=== PATIENT | female | born 1990 | race Caucasian/White ===

== ENCOUNTER 2023-07-20 08:13 | Outpatient (OUT) | payer OTHER, SELFPAY ==
[2023-07-20 09:53] LABS: Free T3 3.13 pg/mL (2.18-3.98); Thyroid Stimulating Hormone 1.669 uIU/mL (0.358-3.740)
== END 2023-07-20 08:14 | disposition home or self-care (01) ==
PROVIDERS: PCP Nurse Practitioner Family; Visit Provider Nurse Practitioner Family
DX: Z00.00 Encounter for general adult medical examination without abnormal findings (principal)
CPT/HCPCS: 36415; 84436; 84443; 84481

== ENCOUNTER 2024-05-16 09:56 | Outpatient (OUT) | payer OTHER, SELFPAY ==
--- OUTSIDE RECORDS SUMMARY | 2024-05-16 09:59 | XMS_ITS | CCD ---
Author Organization [facility] Care Team Providers Care Casting Repairer Name Role Phone No Family, Physician Unavailable Unavailable DECKER, NEELIMA T Unavailable Unavailable DECKER, NEELIMA T Unavailable Unavailable No Family, Physician Unavailable Unavailable EMI, DAYANA E Unavailable Unavailable No Family, Physician Unavailable Unavailable WINTER MARINA Admitting Unavailable WINTER MARINA Attending Unavailable WINTER MARINA Primary Care Unavailable WINTER MARINA Consulting Unavailable WINTER MARINA Admitting Unavailable WINTER MARINA Attending Unavailable WINTER MARINA Primary Care Unavailable WINTER MARINA Consulting Unavailable KORY Marina-Yumi [place] Primary [facility] Provider DO Shirlene Samayoa Attending Provider LILA Marina [place] Primary [facility] Provider [phone] DO Shirlene Samayoa Attending Provider [phone] AYLEEN Hickman Emergency Provider LILA Marina [place] Primary Care Provider DO Shirlene Samayoa Attending Provider NO FAMILY, PHYSICIAN Primary Care Provider Unava ilable MD Rodger Jacobsen Admit Provider MD Rodger Jacobsen Attending Provider MD Asha Bowman Attending Provider [phone] Winter [place] Primary Care Unavailable Francis Hickman Admitting Unavailable Francis Hickman Attending Unavailable Rodger Jacobsen Admitting Unavailable Rodger Jacobsen Attending Unavailable Winter Marina Primary Care Unavailable Asha Bowman Attending Unavailable Winter Marina [place] Primary Care Unavailable Asha Bowman Admitting Unavailable Asha Bowman Admitting Unavailable Asha Bowman Attending Unavailable Winter Marina Primary Care Unavailable Asha Bowman Admitting Unavailable Asha Bowman Attending Unavailable Winter Marina Primary Care Unavailable Shirlene Samayoa Admitting Unavailable Shirlene Samayoa Attending Unavailable Winter Marina Primary Care Unavailable NO FAMILY, PHYSICIAN Primary Care Unavailable Shirlene Samayoa Admitting Unavailable Shirlene Samayoa Attending Unavailable Medications Current Medications Medication Drug Class(es) Dates Sig (Normalized) Sig (Original) cephalexin 500 mg oral capsule (4 sources) Cephalosporin Antibacterial Start: 04-30-2023 take 500 mg by mouth twice daily Cephalexin Active 500 MG PO Twice daily 10 April 30, 2023 12:00am docusate sodium 100 mg oral capsule (4 sources) Start: 04-30-2023 take 1 capsule by mouth once daily Docusate Sodium (Colace) 100 mg capsule Active 100 MG PO Daily April 30, 2023 12:00am ferrous sulfate 325 mg oral tablet (4 sources) Start: 04-30-2023 take 325 mg by mouth twice daily Ferrous Sulfate Active 325 MG PO Twice daily 60 April 30, 2023 12:00am ibuprofen 600 mg oral tablet (4 sources) Nonsteroidal Anti-inflammatory Drug Start: 04-30-2023 Ibuprofen Active 600 MG PO Every 6 hours April 30, 2023 12:00am do not exceed 4 doses in a 24 hour period levothyroxine sodium 0.075 mg oral tablet (6 sources) l-Thyroxine Start: 02-15-2023 take 1 tablet by mouth once daily Levothyroxine (Synthroid) 75 mcg tablet Active 75 MCG PO Daily February 15, 2023 12:00am Problems Active Problems Problem Classification Problem Date Documented Da te Episodic/Chronic Hemorrhage during ; abruptio placenta; placenta previa (1 source) Threatened miscarriage; Translations: [Threatened ] Onset: 8 Episodic Other complications of ; puerperium affecting management of mother (4 sources) Anemia during the puerperium; Translations: [Anemia of the puerperium] 04-30-2023 Chronic Other complications of ; puerperium affecting management of mother (5 sources) Anemia of the puerperium; Translations: [Anemia of mother, condition or complication] Onset: 3 04-30-2023 Chronic Other complications of ; puerperium affecting management of mother (4 sources) Urinary tract infection in ; Translations: [Urinary tract infection following delivery, unspecified] 04-30-2023 Episodic Other complications of ; puerperium affecting management of mother (5 sources) Urinary tract infection following delivery, unspecified; Translations: [Infections of genitourinary tract in , condition or complication] Onset: 3 04-30-2023 Episodic Other complications of (4 sources) Anemia of ; Translations: [Anemia complicating , unspecified trimester] 04-29-2023 Chronic Other complications of (4 sources) Anemia complicating , unspecified trimester; Translations: [Anemia of mother, unspecified as to episode of care or not applicable] 04-30-2023 Chronic Other female genital disorders (8 sources) History of past delivery; Translations: [Status post vaginal delivery] 04-29-2023 Episodic Other and delivery including normal (2 sources) Encounter for supervision of normal , unspecified, third trimester; Translations: [Encounter for supervision of normal first , second trimester] Onset: 3 Episodic Phlebitis; thrombophlebitis and thromboembolism (6 sources) Superficial thrombophlebitis; Translations: [Phlebitis and thrombophlebitis of unspecified site] 02-15-2023 Episodic Thyroid disorders (4 sources) Hypothyroidism, unspecified; Translations: [HYPOTHYROIDISM UNSPECIFIED] Onset: 2 Chronic Unclassified (1 source) Failed attempted termination of without complication / O07.4(ICD-10) Onset: 8 Unclassified (2 sources) Threatened / O20.0(ICD-10) Onset: 8 Unclassified (1 source) Encounter for care and examination of lactating mother; Translations: [Encounter for care and examination of lactating mother] Onset: 3 Unclassified (1 source) Hypogalactia; Translations: [Hypogalactia] Onset: 3 Unclassified (1 source) Encounter for screening for Streptococcus B; Translations: [Encounter for screening for Streptococcus B] Onset: 3 Unclassified (1 source) Erythematous condition, unspecified; Translations: [Erythematous condition, unspecified] Onset: 3 Unclassified (1 source) Encounter for screening for diabetes mellitus; Translations: [Encounter for screening for diabetes mellitus] Onset: 3 Past or Other Problems Problem Classification Problem Date Documented Da te Episodic/Chronic Residual codes; unclassified (1 source) 25 weeks gestation of ; Translations: [25 weeks gestation of ] Onset: 02-01-2023 Episodic Unclassified (1 source) Failed attempted termination of without complication; Translations: [Failed attempted termination of without complication] Onset: 07-24-2018 Results Test Name Value Interpretation Reference Range Facility Basophils Auto (Bld) [#/Vol] Ordered By: RODGER JACOBSEN on 04-29-2023 Basophils (Bld) [#/Vol] 0.1 10*3/uL 0.0-0.2 [facility] Basophils/100 WBC Auto (Bld) Ordered By: RODGER JACOBSEN on 04-29-2023 Basophils/100 WBC (Bld) 0.7 % . [facility] Complete Blood Count Auto Di ffon 04-29-2023 Basophils (Bld) [#/Vol] 0.1 10*3/uL Normal 0.0-0.2 [facility] Comment on above: Order Comment: Pleas e draw per Lori in BB. MLG Result Comment: PERF ORMED BY: [facility] [address] [place] [address] PATHOLOGIST DRILL PRESSER LIZBET العلي M.D. Performed By: #### C BC ####[id number] [facility] [place] Basophils/100 WBC (Bld) 0.7 % Normal . [facility] Comment on above: Order Comment: Pleas e draw per Lori in BB. MLG Performed By: #### C BC ####[facility] [id number] [facility] [place] Eosinophils (Bld) [#/Vol] 0.2 10*3/uL Normal 0.0-0.45 [facility] Comment on above: Order Comment: Pleas e draw per Lori in BB. MLG Performed By: #### C BC ####[place] [id number] [facility] [place] Eosinophils/100 WBC (Bld) 1.8 % Normal . [facility] Comment on above: Order Comment: Pleas e draw per Lori in BB. MLG Performed By: #### C BC ####[place] [id number] [facility] [place] Erythrocyte distribution width (RBC) [Ratio] 12.9 % Normal 11.9-15.3 [facility] Comment on above: Order Comment: Pleas e draw per Lori in BB. MLG Performed By: #### C BC ####[address] [id number] [facility] [place] Hematocrit (Bld) [Volume fraction] 21.4 % Significant change down 34.0-46.4 [facility] Comment on above: Order Comment: Pleas e draw per Lori in BB. MLG Performed By: #### C BC ####[address] [id number] [facility] [place] Hemoglobin (Bld) [Mass/Vol] 7.3 g/dL Low 11.8-15.4 [facility] Comment on above: Order Comment: Pleas e draw per Lori in BB. MLG Performed By: #### C BC ####[place] [id number] [facility] [place] Lymphocytes (Bld) [#/Vol] 2.2 10*3/uL Normal 1.00-4.8 [facility] Comment on above: Order Comment: Pleas e draw per Lori in BB. MLG Performed By: #### C BC ####[place] [id number] [facility] [place] Lymphocytes/100 WBC (Bld) 24.0 % Normal . [facility] Comment on above: Order Comment: Pleas e draw per Lori in BB. MLG Performed By: #### C BC ####[place] [id number] [facility] [place] MCH (RBC) [Entitic mass] 29.5 pg Normal 24.7-34.3 [facility] Comment on above: Order Comment: Pleas e draw per Lori in BB. MLG Performed By: #### C BC ####[address] MCV (RBC) [Entitic vol] 86.8 fL Normal 80-100 [facility] Comment on above: Order Comment: Pleas e draw per Lori in BB. MLG Performed By: #### C BC ####[address] Mean Corpuscular HGB Conc 34.0 g/dL Normal 32.0-35.0 [facility] Comment on above: Order Comment: Pleas e draw per Lori in BB. MLG Performed By: #### C BC ####[address] Monocytes (Bld) [#/Vol] 0.7 10*3/uL Normal 0.0-0.8 [facility] Comment on above: Order Comment: Pleas e draw per Lori in BB. MLG Performed By: #### C BC ####[address] Monocytes/100 WBC (Bld) 7.2 % Normal . [facility] Comment on above: Order Comment: Pleas e draw per Lori in BB. MLG Performed By: #### C BC ####[address] Neutrophils (Bld) [#/Vol] 6.0 10*3/uL Normal 1.8-7.7 [facility] Comment on above: Order Comment: Pleas e draw per Lori in BB. MLG Performed By: #### C BC ####[address] Neutrophils/100 WBC (Bld) 66.3 % Normal . [facility] Comment on above: Order Comment: Pleas e draw per Lori in BB. MLG Performed By: #### C BC ####[place] [id number] [facility] [place] NRBC% 0.2 /100{WBC} Normal 0-0.5 [facility] Comment on above: Order Comment: Pleas e draw per Lori in BB. MLG Performed By: #### C BC ####[address] Platelet mean volume (Bld) [Entitic vol] 9.6 fL Normal 6.3-10.7 [facility] Comment on above: Order Comment: Pleas e draw per Lori in BB. MLG Performed By: #### C BC ####[address] Platelets (Bld) [#/Vol] 145 10*3/uL Significant change down 150-450 [facility] Comment on above: Order Comment: Pleas e draw per Lori in BB. MLG Performed By: #### C BC ####[address] RBC (Bld) [#/Vol] 2.47 10*6/uL Low 3.60-5.00 [facility] Comment on above: Order Comment: Pleas e draw per Lori in BB. MLG Performed By: #### C BC ####[address] WBC (Bld) [#/Vol] 9.1 10*3/uL Normal 3.8-11.6 [facility] Comment on above: Order Comment: Pleas e draw per Lori in BB. MLG Performed By: #### C BC ####[address] Eosinophils Auto (Bld) [#/Vo l]Ordered By: RODGER JACOBSEN on 04-29-2023 Eosinophils (Bld) [#/Vol] 0.2 10*3/uL 0.0-0.45 [facility] Eosinophils/100 WBC Auto (Bl d)Ordered By: RODGER JACOBSEN on 04-29-2023 Eosinophils/100 WBC (Bld) 1.8 % . [facility] Erythrocyte distribution wid th Auto (RBC) [Ratio]Ordered By: RODGER JACOBSEN on 04-29-2023 Erythrocyte distribution width (RBC) [Ratio] 12.9 % 11.9-15.3 [facility] Hematocrit Auto (Bld) [Volum e fraction]Ordered By: RODGER JACOBSEN on 04-29-2023 Hematocrit (Bld) [Volume fraction] 21.4 % 34.0-46.4 [facility] Comment on above: Delta: 30.9 on 04/27-2099 Hemoglobin [Mass/volume] in BloodOrdered By: RODGER JACOBSEN on 04-29-2023 Hemoglobin (Bld) [Mass/Vol] 7.3 g/dL 11.8-15.4 [facility] Leukocytes [#/volume] correc arie for nucleated erythrocytes in Blood by Automated counOrdered By: RODGER JACOBSEN on 04-29-2023 WBC corrected for nucl RBC Auto (Bld) [#/Vol] 9.1 10*3/uL 3.8-11.6 [facility] Lymphocytes Auto (Bld) [#/Vo l]Ordered By: RODGER JACOBSEN on 04-29-2023 Lymphocytes (Bld) [#/Vol] 2.2 10*3/uL 1.00-4.8 [facility] Lymphocytes/100 WBC Auto (Bl d)Ordered By: RODGER JACOBSEN on 04-29-2023 Lymphocytes/100 WBC (Bld) 24.0 % . [facility] MCH Auto (RBC) [Entitic mass ]Ordered By: RODGER JACOBSEN on 04-29-2023 MCH (RBC) [Entitic mass] 29.5 pg 24.7-34.3 [facility] MCHC Auto (RBC) [Mass/Vol]Or dered By: RODGER JACOBSEN on 04-29-2023 MCHC (RBC) [Mass/Vol] 34.0 g/dL 32.0-35.0 [facility] MCV Auto (RBC) [Entitic vol] Ordered By: RODGER JACOBSEN on 04-29-2023 MCV (RBC) [Entitic vol] 86.8 fL 80-100 [facility] Monocytes Auto (Bld) [#/Vol] Ordered By: RODGER JACOBSEN on 04-29-2023 Monocytes (Bld) [#/Vol] 0.7 10*3/uL 0.0-0.8 [facility] Monocytes/100 WBC Auto (Bld) Ordered By: RODGER JACOBSEN on 04-29-2023 Monocytes/100 WBC (Bld) 7.2 % . [facility] Neutrophils Auto (Bld) [#/Vo l]Ordered By: RODGER JACOBSEN on 04-29-2023 Neutrophils (Bld) [#/Vol] 6.0 10*3/uL 1.8-7.7 [facility] Neutrophils/100 WBC Auto (Bl d)Ordered By: RODGER JACOBSEN on 04-29-2023 Neutrophils/100 WBC (Bld) 66.3 % . [facility] Nucleated erythrocytes [Pres ence] in Blood by Automated countOrdered By: RODGER JACOBSEN on 04-29-2023 Nucleated RBC Auto Ql (Bld) 0.2 /100{WBC} 0-0.5 [facility] Platelet mean volume Auto (B ld) [Entitic vol]Ordered By: RODGER JACOBSEN on 04-29-2023 Platelet mean volume (Bld) [Entitic vol] 9.6 fL 6.3-10.7 [facility] Platelets Auto (Bld) [#/Vol] Ordered By: RODGER JACOBSEN on 04-29-2023 Platelets (Bld) [#/Vol] 145 10*3/uL 150-450 [facility] Comment on above: Delta: 207 on -2100 RBC Auto (Bld) [#/Vol]Ordere d By: RODGER JACOBSEN on 04-29-2023 RBC (Bld) [#/Vol] 2.47 10*6/uL 3.60-5.00 [facility] WBC Auto (Bld) [#/Vol]Ordere d By: RODGER JACOBSEN on 04-29-2023 WBC (Bld) [#/Vol] 9.1 10*3/uL 3.8-11.6 [facility] - Chemistry and C hemistry - challengeOrdered By: Shirlene Samayoa on 04-28-2023 CO2 [Moles/Vol] 18.6 mmol/L 24.0-29.0 [facility] HCO3 (Bld) [Moles/Vol] 17.7 mmol/L 23.0-29.0 [facility] No Panel InformationOrdered By: Shirlene Samayoa on 04-28-2023 Blood Gas Critical Value See comment [facility] Comment on above: Critical Value shirin craft on: 04/28/2023 at 08:34 Blood Gas Sample Site Umbilical cord [facility] FiO2 21 % [facility] Venous Blood Base Excess -6.0 mmol/L -3.0-3.0 [facility] Venous Blood Oxygen Content 8.3 mmol/L 6.6-9.7 [facility] Venous Blood Oxygen Saturation 89.0 % 73.0-76.0 [facility] Venous Blood Partial Pressure CO2 30.3 mm[Hg] 38.0-50.0 [facility] Venous Blood Partial Pressure O2 45.8 mm[Hg] 35.0-45.0 [facility] Venous Blood pH 7.38 7.32-7.43 [facility] RFX RhoGAM Screenon RFX RhoGAM Screen Negative [facility] Comment on above: Order Comment: Pleas e draw per Lori in BB. MLG RFX RhoGAM Vials Indicatedon 04-28-2023 RFX RhoGAM Vials Indicated 1 Dose [facility] Comment on above: Result Comment: 1 vi al of RhoGAM is equivalent to 300 mcg. 1 vial will suppress alloimmunization by 15 mL of red cells or 30 mL of whole blood. RHOGAM DOSEon 04-28-2023 RHOGAM DOSE Post [facility] Comment on above: Result Comment: PERF ORMED BY: [facility] [address] [place] [address] PATHOLOGIST DRILL PRESSER LIZBET العلي M.D. Rhogam Workupon 04-28-2023 Rhogam Candidate Yes Normal [facility] Comment on above: Order Comment: Pleas e draw per Lori in BB. MLG ABO and Rh group Nom (Bld) Blood group A Rh(D) negative [facility] Comment on above: Order Comment: Pleas e draw per Lori in BB. MLG Venous Blood Gason CO2 [Moles/Vol] 18.6 mmol/L Low 24.0-29.0 [facility] Comment on above: Performed By: #### V BG #### Point of Care testing , HCO3 (Bld) [Moles/Vol] 17.7 mmol/L Low 23.0-29.0 [facility] Comment on above: Performed By: #### V BG #### Point of Care testing , Respiratory Critical Normal [facility] Comment on above: Result Comment: Crit ical Value called on: 04/28/2023 at 08:34 PERFORMED BY: [facility] [address] [place] [address] PATHOLOGIST DRILL PRESSER LIZBET العلي M.D. Performed By: #### V BG #### Point of Care testing , VBG Base Excess -6.0 mmol/L Low -3.0-3.0 [facility] Comment on above: Performed By: #### V BG #### Point of Care testing , VBG Draw Site Umbilical Cord Normal [facility] Comment on above: Performed By: #### V BG #### Point of Care testing , VBG Frac Inspired O2 21 % Normal [facility] Comment on above: Performed By: #### V BG #### Point of Care testing , VBG O2 Content 8.3 mmol/L Normal 6.6-9.7 [facility] Comment on above: Performed By: #### V BG #### Point of Care testing , VBG Oxygen Saturation 89.0 % Off scale high 73.0-76.0 [facility] Comment on above: Performed By: #### V BG #### Point of Care testing , VBG PCO2 30.3 mm[Hg] Low 38.0-50.0 [facility] Comment on above: Performed By: #### V BG #### Point of Care testing , VBG PH Venous PH 7.38 Normal 7.32-7.43 [facility] Comment on above: Performed By: #### V BG #### Point of Care testing , VBG PO2 45.8 mm[Hg] High 35.0-45.0 [facility] Comment on above: Performed By: #### V BG #### Point of Care testing , ABO/RH Typeon 04-27-2023 ABO and Rh group Nom (Bld) Blood group A Rh(D) negative Normal [facility] Comment on above: Result Comment: PERF ORMED BY: [facility] [address] [place] [address] PATHOLOGIST DRILL PRESSER LIZBET العلي M.D. Amnisure(Pamg-1)on 3 Amnisure Positive High Negative [facility] Comment on above: Order Comment: Pleas e draw per Lori in BB. MLG Result Comment: PERF ORMED BY: [address] [place] [address] PATHOLOGIST DRILL PRESSER LIZBET العلي M.D. Performed By: #### A DDONUAPLUS, AMNISURE-, OBUDS, CUU ####[facility] [id number] [place] [address] [facility] Amphetamine Screen Ql (U)Ord ered By: RODGER JACOBSEN on 04-27-2023 Amphetamines Ql (U) Negative Negative [facility] Automated epithelial cells c ount in urine sediment (number/area)Ordered By: RODGER JACOBSEN on 04-27-2023 Epithelial cells Auto (Urine sed) [#/Area] 10-19 [HPF] 0-2 [facility] Automated erythrocytes count in urine sediment (number/area)Ordered By: RODGER JACOBSEN on 04-27-2023 RBC Auto (Urine sed) [#/Area] 5-9 [HPF] 0-4 [facility] Automated leukocytes count i n urine sediment (number/area)Ordered By: RODGER JACOBSEN on 04-27-2023 WBC Auto (Urine sed) [#/Area] 10-19 [HPF] 0-4 [facility] Automated urine hyaline cast s count (number/volume)Ordered By: RODGER JACOBSEN on 04-27-2023 Hyaline casts Auto (U) [#/Vol] 10-19 [LPF] 0-1 [facility] Barbiturates [Presence] in U rine by Screen methodOrdered By: RODGER JACOBSEN on 04-27-2023 Barbiturates Screen Ql (U) Negative Negative [facility] Benzodiazepines Screen Ql (U )Ordered By: RODGER JACOBSEN on 04-27-2023 Benzodiazepines Ql (U) Negative Negative [facility] Benzoylecgonine [Presence] i n Urine by Screen methodOrdered By: RODGER JACOBSEN on 04-27-2023 Benzoylecgonine Screen Ql (U) Negative Negative [facility] Bilirubin Test strip Ql (U)O rdered By: RODGER JACOBSEN on 04-27-2023 Bilirubin Ql (U) Negative Negative [facility] Color Auto (U)Ordered By: DIAMOND JACOBSEN on 04-27-2023 Color (U) Yellow Yellow [facility] Complete Blood Count Auto Di ffon 04-27-2023 Basophils (Bld) [#/Vol] 0.0 10*3/uL Normal 0.0-0.2 [facility] Comment on above: Result Comment: PERF ORMED BY: [place] [address] PATHOLOGIST DRILL PRESSER LIZBET العلي M.D. Performed By: #### R ID W RFX #### [facility] , #### CBC #### [facility] [address] [place] [address] [place] Basophils/100 WBC (Bld) 0.5 % Normal . [facility] Comment on above: Performed By: #### R ID W RFX #### [facility] , #### CBC #### [facility] [address] [place] [address] [place] Eosinophils (Bld) [#/Vol] 0.1 10*3/uL Normal 0.0-0.45 [facility] Comment on above: Performed By: #### R ID W RFX #### [facility] , #### CBC #### [address] Eosinophils/100 WBC (Bld) 1.6 % Normal . [facility] Comment on above: Performed By: #### R ID W RFX #### [facility] , #### CBC #### [address] Erythrocyte distribution width (RBC) [Ratio] 12.8 % Normal 11.9-15.3 [facility] Comment on above: Performed By: #### R ID W RFX #### [facility] , #### CBC #### [address] Hematocrit (Bld) [Volume fraction] 30.9 % Low 34.0-46.4 [facility] Comment on above: Performed By: #### R ID W RFX #### [facility] , #### CBC #### [address] Hemoglobin (Bld) [Mass/Vol] 10.6 g/dL Low 11.8-15.4 [facility] Comment on above: Performed By: #### R ID W RFX #### [facility] , #### CBC #### [address] Lymphocytes (Bld) [#/Vol] 2.0 10*3/uL Normal 1.00-4.8 [facility] Comment on above: Performed By: #### R ID W RFX #### [facility] , #### CBC #### [address] Lymphocytes/100 WBC (Bld) 22.1 % Normal . [facility] Comment on above: Performed By: #### R ID W RFX #### [facility] , #### CBC #### [address] MCH (RBC) [Entitic mass] 29.3 pg Normal 24.7-34.3 [facility] Comment on above: Performed By: #### R ID W RFX #### [facility] , #### CBC #### [facility] [address] [place] [address] MCV (RBC) [Entitic vol] 85.9 fL Normal 80-100 [facility] Comment on above: Performed By: #### R ID W RFX #### [facility] , #### CBC #### [address] Mean Corpuscular HGB Conc 34.1 g/dL Normal 32.0-35.0 [facility] Comment on above: Performed By: #### R ID W RFX #### [facility] , #### CBC #### [facility] [address] [place] [address] Monocytes (Bld) [#/Vol] 0.9 10*3/uL High 0.0-0.8 [facility] Comment on above: Performed By: #### R ID W RFX #### [facility] , #### CBC #### [facility] [address] [place] [address] [place] Monocytes/100 WBC (Bld) 10.4 % Normal . [facility] Comment on above: Performed By: #### R ID W RFX #### [facility] , #### CBC #### [facility] [address] [place] [address] [place] Neutrophils (Bld) [#/Vol] 5.9 10*3/uL Normal 1.8-7.7 [facility] Comment on above: Performed By: #### R ID W RFX #### [facility] , #### CBC #### [facility] [address] [place] [address] [place] Neutrophils/100 WBC (Bld) 65.4 % Normal . [facility] Comment on above: Performed By: #### R ID W RFX #### [facility] , #### CBC #### [facility] [address] [place] [address] NRBC% 0.1 /100{WBC} Normal 0-0.5 [facility] Comment on above: Performed By: #### R ID W RFX #### [facility] , #### CBC #### [address] Platelet mean volume (Bld) [Entitic vol] 9.5 fL Normal 6.3-10.7 [facility] Comment on above: Performed By: #### R ID W [id number] #### [facility] , #### CBC #### [address] Platelets (Bld) [#/Vol] 207 10*3/uL Normal 150-450 [facility] Comment on above: Performed By: #### R ID W [id number] #### [facility] , #### CBC #### [facility] [address] [place] [address] RBC (Bld) [#/Vol] 3.60 10*6/uL Normal 3.60-5.00 [facility] Comment on above: Performed By: #### R ID W [id number] #### [facility] , #### CBC #### [facility] [address] [place] [address] WBC (Bld) [#/Vol] 9.0 10*3/uL Normal 3.8-11.6 [facility] Comment on above: Performed By: #### R ID W [id number] #### [facility] , #### CBC #### [facility] [address] [place] [address] Dipstick and Microscopicon 0 04-27-2023 Appearance (U) Turbid Critically abnormal Clear [facility] Comment on above: Order Comment: Pleas e draw per Lori in BB. MLG Performed By: #### A DDONUAPLUS, AMNISURE-, OBUDS, CUU ####[address] [address] [facility] Bacteria,Urine 3+ High None Seen [facility] Comment on above: Order Comment: Pleas e draw per Lori in BB. MLG Performed By: #### A DDONUAPLUS, AMNISURE-, OBUDS, CUU ####[address] [address] [facility] Bilirubin,Urine Negative Normal Negative [facility] Comment on above: Order Comment: Pleas e draw per Lori in BB. MLG Performed By: #### A DDONUAPLUS, AMNISURE-, OBUDS, CUU ####[address] [address] [facility] [place] Color (U) Yellow Normal Yellow [facility] Comment on above: Order Comment: Pleas e draw per Lori in BB. MLG Performed By: #### A DDONUAPLUS, AMNISURE-, OBUDS, CUU ####[address] [address] [facility] [place] Glucose Ql (U) Normal Normal Normal [facility] Comment on above: Order Comment: Pleas e draw per Lori in BB. MLG Performed By: #### A DDONUAPLUS, AMNISURE-, OBUDS, CUU ####[address] [address] [facility] [place] Hyaline Casts,Urine 10-19 High 0-1 [facility] Comment on above: Order Comment: Pleas e draw per Lori in BB. MLG Result Comment: PERF ORMED BY: [facility] [address] [place] [id number] PATHOLOGIST DRILL PRESSER LIZBET العلي M.D. Performed By: #### A DDONUAPLUS, AMNISURE-, OBUDS, CUU ####[place] [id number] [facility] [place] Ketones Ql (U) Negative Normal Negative [facility] Comment on above: Order Comment: Pleas e draw per Lori in BB. MLG Performed By: #### A DDONUAPLUS, AMNISURE-, OBUDS, CUU ####[place] [id number] [facility] [place] Leukocyte esterase Test strip Ql (U) 2+ High Negative [facility] Comment on above: Order Comment: Pleas e draw per Lori in BB. MLG Performed By: #### A DDONUAPLUS, AMNISURE-, OBUDS, CUU ####[place] [id number] [facility] [place] Nitrite,Urine Negative Normal Negative [facility] Comment on above: Order Comment: Pleas e draw per Lori in BB. MLG Performed By: #### A DDONUAPLUS, AMNISURE-, OBUDS, CUU ####[address] Occult Blood,Urine 1+ High Negative [facility] Comment on above: Order Comment: Pleas e draw per Lori in BB. MLG Result Comment: PERF ORMED BY: [facility] [address] [place] [address] PATHOLOGIST DRILL PRESSER LIZBET العلي M.D. Performed By: #### A DDONUAPLUS, AMNISURE-, OBUDS, CUU ####[place] [id number] [facility] [place] pH (U) 6.0 [pH] Normal 5.0-9.0 [facility] Comment on above: Order Comment: Pleas e draw per Lori in BB. MLG Performed By: #### A DDONUAPLUS, AMNISURE-, OBUDS, CUU ####[place] [id number] [facility] [place] Protein (U) [Mass/Vol] 30 mg/dL High Negative [facility] Comment on above: Order Comment: Pleas e draw per Lori in BB. MLG Performed By: #### A DDONUAPLUS, AMNISURE-, OBUDS, CUU ####[place] [id number] [facility] [place] RBC,Urine 5-9 High 0-4 [facility] Comment on above: Order Comment: Pleas e draw per Lori in BB. MLG Performed By: #### A DDONUAPLUS, AMNISURE-, OBUDS, CUU ####[address] Specificy [place],Urine 1.020 Normal 1.001-1.030 [facility] Comment on above: Order Comment: Pleas e draw per Lori in BB. MLG Performed By: #### A DDONUAPLUS, AMNISURE-, OBUDS, CUU ####[place] [id number] [facility] [place] Squamous Epithelial Cell,Urine 10-19 High 0-2 [facility] Comment on above: Order Comment: Pleas e draw per Lori in BB. MLG Performed By: #### A DDONUAPLUS, AMNISURE-, OBUDS, CUU ####[address] Urobilinogen,Urine Normal Normal Normal [facility] Comment on above: Order Comment: Pleas e draw per Lori in BB. MLG Performed By: #### A DDONUAPLUS, AMNISURE-, OBUDS, CUU ####[place] [id number] [facility] [place] WBC,Urine 10-19 High 0-4 [facility] Comment on above: Order Comment: Pleas e draw per Lori in BB. MLG Performed By: #### A DDONUAPLUS, AMNISURE-, OBUDS, CUU ####[place] [id number] [facility] [place] Ketones Auto test strip (U) [Mass/Vol]Ordered By: RODGER JACOBSEN on 04-27-2023 Ketones (U) [Mass/Vol] Negative Negative [facility] Nitrite Test strip Ql (U)Ord ered By: RODGER JACOBSEN on 04-27-2023 Nitrite Ql (U) Negative Negative [facility] No Panel InformationOrdered By: RODGER JACOBSEN on 04-27-2023 Membranes Rupture (PAMG-1) Positive Negative [facility] OB Urine Drug Screen (NO THC )on 04-27-2023 Amphetamine Screen,Urine Negative Normal Negative [facility] Comment on above: Performed By: #### A DDONUAPLUS, AMNISURE-, OBUDS, CUU ####[facility] [id number] [place] [address] [facility] Barbiturate Screen,Urine Negative Normal Negative [facility] Comment on above: Performed By: #### A DDONUAPLUS, AMNISURE-, OBUDS, CUU ####[facility] [id number] [place] [address] [facility] [place] Benzodiazepines Screen,Urine Negative Normal Negative [facility] Comment on above: Performed By: #### A DDONUAPLUS, AMNISURE-, OBUDS, CUU ####[facility] [id number] [place] [address] [place] Cocaine Screen,Urine Negative Normal Negative [facility] Comment on above: Performed By: #### A DDONUAPLUS, AMNISURE-, OBUDS, CUU ####[facility] [id number] [place] [address] [facility] [place] Opiate Screen,Urine Negative Normal Negative [facility] Comment on above: Performed By: #### A DDONUAPLUS, AMNISURE-, OBUDS, CUU ####[facility] [id number] [place] [address] [facility] [place] Phencyclidine Screen, Urine Negative Normal Negative [facility] Comment on above: Result Comment: Thes e are unconfirmed results and should not be used for legal purposes. Drug Cut-Off Concentration: AMPH 1000 ng/mL ALEX 200 ng/mL BAILEE 200 ng/mL COCM 300 ng/mL OP 300 ng/mL PCP 25 ng/mL PERFORMED BY: [facility] [address] [place] [id number] PATHOLOGIST DRILL PRESSER LIZBET العلي M.D. Performed By: #### A DDONUAPLUS, AMNISURE-, OBUDS, CUU ####[facility] [id number] Opiates [Presence] in Urine by Screen methodOrdered By: RODGER JACOBSEN on 04-27-2023 Opiates Screen Ql (U) Negative Negative Fir [facility] Phencyclidine Screen Ql (U)O rdered By: RODGER JACOBSEN on 04-27-2023 Phencyclidine Ql (U) Negative Negative [facility] Comment on above: These are unconfirme d results and should not be used for legal purposes. Drug Cut-Off Concentration: AMPH 1000 ng/mL ALEX 200 ng/mL BAILEE 200 ng/mL COCM 300 ng/mL OP 300 ng/mL PCP 25 ng/mL Protein Auto test strip (U) [Mass/Vol]Ordered By: RODGER JACOBSEN on 04-27-2023 Protein (U) [Mass/Vol] 30 mg/dL Negative [facility] RPR w/rfx to Quant TP Abson 04-27-2023 RPR, Rfx Quant RPR Non-Reactive Normal Non Reactive [facility] Comment on above: Result Comment: Perf ormed at: - [facility] [place] [address] Duct Cleaner: Alan Reis PhD, Phone: [phone] PERFORMED BY: [place] [address] PATHOLOGIST DRILL PRESSER LIZBET العلي M.D. Performed By: #### R ID W [id number] #### [facility] , #### CBC #### [facility] [address] [place] [address] [place] Reagin Ab [Presence] in Seru m by RPROrdered By: RODGER JACOBSEN on 04-27-2023 Reagin Ab RPR Ql (S) Non-Reactive Non Reactive [facility] Comment on above: Performed at: [facility] [place] [id number] Director: Alan Reis PhD, Phone: [phone] Specific gravity Auto test s trip (U) [Rel density]Ordered By: RODGER JACOBSEN on 04-27-2023 Specific gravity (U) [Rel density] 1.020 1.001-1.030 [facility] Urine Cultureon 04-27-2023 Bacteria identified Cx Nom (U) ORGANISM: Escherichia coli (O:ESCCOL) [place] Count >100,000 Aerobic ALONDRA Charge (NMIC56) -- SUSCEPTIBILITY - ORGANISM: O:ESCCOL ANTIBIOTIC INTERPRETATION ALONDRA Amikacin S <16 Amoxacillin/K Clavulanate R >16 Ampicillin R >16 Ampicillin/Sulbactam I 1616/8 Aztreonam S <4 Cefazolin S 8 Cefepime S <2 Ceftazidime S <1 Ceftazidime/Avibactam S <4 Ceftolozane/Tazobactam S <2 Ceftriaxone S <1 Cefuroxime S 8 Ciprofloxacin S <0.25 Ertapenem S <0.5 Gentamicin S <2 Levofloxacin S <0.5 Meropenem S <1 Meropenem/Vaborbactam S <2 Nitrofurantoin S <32 Piperacillin/Tazobactam S <8 Tetracycline S <4 Tigecycline S <2 Tobramycin S <2 Trimethoprim/Sulfametho xazole S <0.5 S = SUSCEPTIBLE I = INTERMEDIATE R = RESISTANT BLANK = DATA NOT AVAILABLE, OR DRUG NOT ADVISABLE OR TESTED R* = RESISTANCE DUE TO EXTENDED SPECTRUM BETA-LACTAMASES ESBL = EXTENDED SPECTRUM BETA-LACTAMASE TFG = THYMIDINE-DEPENDENT STRAIN LEIF = BETA-LACTAMASE POSITIVE IB = INDUCIBLE BETA-LACTAMASE. APPEARS IN PLACE OF 'S' WITH SPECIES KNOWN TO POSSESS INDUCIBLE BETA-LACTAMASES. POTENTIALLY THEY MAY BECOME RESISTANT TO ALL B-LACTAM DRUGS. PERFORMED BY: [facility] [address] [place] [address] PATHOLOGIST DRILL PRESSER LIZBET العلي M.D. Normal [facility] Comment on above: Performed By: #### A CHI, AMNISURE-, OBUDS, CUU ####[facility] [id number] [place] [address] [facility] Urine bacteria detection by automated methodOrdered By: RODGER JACOBSEN on 04-27-2023 Bacteria Auto Ql (U) 3+ None Seen [facility] Urine clarity by refractomet ry automatedOrdered By: RODGER JACOBSEN on 04-27-2023 Clarity Refractometry automated (U) Turbid Clear [facility] Urine culture routineOrdered By: RODGER JACOBSEN on 04-27-2023 Bacteria identified Cx Nom (U) Escherichia coli [facility] Urine glucose measurement by automated test strip (mass/volume)Ordered By: RODGER JACOBSEN on 04-27-2023 Glucose Auto test strip (U) [Mass/Vol] Normal mg/dL Normal [facility] Urine hemoglobin detection b y automated test stripOrdered By: RODGER JACOBSEN on 04-27-2023 Hemoglobin Auto test strip Ql (U) 1+ Negative [facility] Urine leukocyte esterase det ection by automated test stripOrdered By: RODGER JACOBSEN on 04-27-2023 Leukocyte esterase Auto test strip Ql (U) 2+ Negative [facility] Urobilinogen Auto test strip (U) [Mass/Vol]Ordered By: RODGER JACOBSEN on 04-27-2023 Urobilinogen (U) [Mass/Vol] Normal mg/dL Normal [facility] pH Auto test strip (U)Ordere d By: RODGER JACOBSEN on 04-27-2023 pH (U) 6.0 [pH] 5.0-9.0 [facility] Group B Streptococcus cultur eOrdered By: Shirlene Samayoa on 03-28-2023 S. agalactiae Org specific cx Ql (Unsp spec) [facility] Strep B Cultureon 03-28-2023 Strep B Culture Strep B Only Cult No Group B Beta Streptococcus Isolated 3 Days PERFORMED BY: [facility] [address] [place] [address] PATHOLOGIST DRILL PRESSER LIZBET العلي M.D. Normal [facility] Comment on above: Performed By: #### C USTB ####[facility] [id number] Glucose [Mass/volume] in Ser um or PlasmaOrdered By: Shirlene Samayoa on 01-31-2023 Glucose [Mass/Vol] 113 mg/dL 60-140 [facility] Glucose,1 Hour PP 50gm Doseo n 01-31-2023 Glucose [Mass/Vol] 113 mg/dL Normal 60-140 [facility] Comment on above: Result Comment: PERF ORMED BY: [place] [address] PATHOLOGIST DRILL PRESSER LIZBET العلي M.D. Performed By: #### G [id number] #### [facility] [address] [place] [address] Hematocrit Auto (Bld) [Volum e fraction]Ordered By: Shirlene Samayoa on 01-31-2023 Hematocrit (Bld) [Volume fraction] 32.5 % 34.0-46.4 [facility] Hemoglobin [Mass/volume] in BloodOrdered By: Shirlene Samayoa on 01-31-2023 Hemoglobin (Bld) [Mass/Vol] 11.4 g/dL 11.8-15.4 [facility] Hemoglobin and Hematocriton 01-31-2023 Hematocrit (Bld) [Volume fraction] 32.5 % Low 34.0-46.4 [facility] Comment on above: Result Comment: PERF ORMED BY: [place] [address] PATHOLOGIST DRILL PRESSER LIZBET العلي M.D. Performed By: #### H H #### [address] Hemoglobin (Bld) [Mass/Vol] 11.4 g/dL Low 11.8-15.4 [facility] Comment on above: Performed By: #### H H #### [address] RFX RhoGAM Vials Indicatedon 01-31-2023 RFX RhoGAM Vials Indicated 1 Dose Normal [facility] Comment on above: Result Comment: 1 vi al of RhoGAM is equivalent to 300 mcg. 1 vial will suppress alloimmunization by 15 mL of red cells or 30 mL of whole blood. RHOGAM DOSEon 01-31-2023 RHOGAM DOSE Normal [facility] Comment on above: Result Comment: PERF ORMED BY: [facility] [place] [address] PATHOLOGIST DRILL PRESSER LIZBET العلي M.D. Rhogam Workupon 01-31-2023 Rhogam Candidate Yes Normal [facility] Comment on above: Result Comment: PERF ORMED BY: [facility] [address] [place] [address] PATHOLOGIST DRILL PRESSER LIZBET العلي M.D. ABO and Rh group Nom (Bld) Blood group A Rh(D) negative Normal [facility] FREE THYROXINE INDEX T7on FTI 2.97 Normal 1.30-4.50 [facility] Comment on above: Performed By: #### T ROBBIE, T7 #### [facility] [address] [place] [address] Dr. Sayda Samuels T3U 33.0 % Normal 30.0-39.0 [facility] Comment on above: Performed By: #### T ROBBEI, T7 #### [facility] [address] [place] [address] Dr. Sayda Samuels T4 [Mass/Vol] 9.00 ug/dL Normal 4.80-13.90 [facility] Comment on above: Performed By: #### T ROBBIE, T7 #### [facility] [address] [place] [address] Dr. Sayda Samuels TSHon 07-18-2022 TSH 2.546 uIU/mL Normal 0.358-3.740 [facility] Comment on above: Performed By: #### T SH, T7 #### [facility] [address] [place] [address] Dr. Sayda Samuels [facility] CBC AUTO DIFFon 03-29-2022 BASO # 0.1 103/ul Normal 0.0-0.1 [facility] Comment on above: Performed By: #### H FPFCBC #### [facility] [address] [place] [address] Dr. Sayda Samuels Basophils/100 WBC (Bld) 0.9 % Normal 0.2-2.0 [facility] Comment on above: Performed By: #### H FPFCBC #### [facility] [address] [place] [address] Dr. Sayda Samuels EO # 0.1 103/ul Normal 0.0-0.7 [facility] Comment on above: Performed By: #### H FPFCBC #### [facility] [address] [place] [address] Dr. Sayda Samuels Eosinophils/100 WBC (Bld) 0.7 % Critically low 0.9-7.0 [facility] Comment on above: Performed By: #### H FPFCBC #### [facility] [address] [place] [address] Dr. Sayda Samuels Erythrocyte distribution width (RBC) [Ratio] 12.9 % Normal 11.0-15.0 [facility] Comment on above: Performed By: #### H FPFCBC #### [facility] [address] [place] [address] Dr. Sayda Samuels Hematocrit (Bld) [Volume fraction] 39.8 % Normal 36.0-48.0 [facility] Comment on above: Performed By: #### H FPFCBC #### [facility] [address] [place] [address] Dr. Sayda Samuels Hemoglobin (Bld) [Mass/Vol] 12.7 g/dL Normal 12.0-16.0 [facility] Comment on above: Performed By: #### H FPFCBC #### [facility] [address] [place] [address] Dr. Sayda Samuels IG # 0.01 10e3/ul Normal 0.00-0.03 [facility] Comment on above: Performed By: #### H FPFCBC #### [facility] [address] [place] [address] Dr. Sayda Samuels IG % 0.1 % Normal 0.0-0.5 [facility] Comment on above: Performed By: #### H FPFCBC #### [facility] [address] [place] [address] Dr. Sayda Samuels LYMPH # 1.5 103/ul Normal 1.2-3.8 [facility] Comment on above: Performed By: #### H FPFCBC #### [facility] [address] [place] [address] Dr. Sayda Samuels Lymphocytes/100 WBC (Bld) 22.8 % Normal 20.5-60.0 [facility] Comment on above: Performed By: #### H FPFCBC #### [facility] [address] [place] [address] Dr. Sayda Samuels MCH (RBC) [Entitic mass] 28.4 pg Normal 26.7-34.0 [facility] Comment on above: Performed By: #### H FPFCBC #### [facility] [address] [place] [address] Dr. Sayda Samuels MCHC (RBC) [Mass/Vol] 31.9 g/dL Normal 29.9-35.2 [facility] Comment on above: Performed By: #### H FPFCBC #### [facility] [address] [place] [address] Dr. Sayda Samuels MCV (RBC) [Entitic vol] 89.0 fL Normal 81.0-99.0 [facility] Comment on above: Performed By: #### H FPFCBC #### [facility] [address] [place] [address] Dr. Sayda Samuels MONO # 0.9 103/ul Critically high 0.3-0.8 [facility] Comment on above: Performed By: #### H FPFCBC #### [facility] [address] [place] [address] Dr. Sayda Samuels Monocytes/100 WBC (Bld) 13.0 % Critically high 1.7-12.0 [facility] Comment on above: Performed By: #### H FPFCBC #### [facility] [address] [place] [address] Dr. Sayda Samuels NEUT # 4.2 103/ul Normal 1.4-6.5 [facility] Comment on above: Performed By: #### H FPFCBC #### [facility] [address] [place] [address] Dr. Sayda Samuels Neutrophils/100 WBC (Bld) 62.5 % Normal 43.0-75.0 [facility] Comment on above: Performed By: #### H FPFCBC #### [facility] [address] [place] [address] Dr. Sayda Samuels Platelet mean volume (Bld) [Entitic vol] 11.4 fL Normal 9.5-13.5 [facility] Comment on above: Performed By: #### H FPFCBC #### [facility] [address] [place] [address] Dr. Sayda Samuels PLT 227 103/ul Normal 150-450 [facility] Comment on above: Performed By: #### H FPFCBC #### [facility] [address] [place] [address] Dr. Sayda Samuels RBC 4.47 106/ul Normal 4.20-5.40 [facility] Comment on above: Performed By: #### H FPFCBC #### [facility] [address] [place] [address] Dr. Sayda Samuels WBC 6.7 103/ul Normal 4.0-11.0 [facility] Comment on above: Performed By: #### H FPFCBC #### [facility] [address] [place] [address] Dr. Sayda Samuels [facility] PROFILEon 022 Albumin [Mass/Vol] 3.8 g/dL Normal 3.4-5.0 [facility] Comment on above: Performed By: #### H FPF #### [facility] [address] [place] [address] Dr. Sayda Samuels Albumin/Globulin [Mass ratio] 1.1 {ratio} Normal [facility] Comment on above: Performed By: #### H FPF #### [facility] [address] [place] [address] Dr. Sayda Samuels ALP [Catalytic activity/Vol] 48 U/L Normal 46-116 [facility] Comment on above: Performed By: #### H FPF #### [facility] [address] [place] [address] [address] Sayda Samuels ALT [Catalytic activity/Vol] 16 U/L Normal 14-59 [facility] Comment on above: Performed By: #### H FPF #### [facility] [address] [place] [address] [address] Sayda Samuels AST [Catalytic activity/Vol] 11 U/L Critically low 15-37 [facility] Comment on above: Performed By: #### H FPF #### [facility] [address] [place] [address] Dr. Sayda Samuels Bilirubin [Mass/Vol] 0.2 mg/dL Normal 0.2-1.0 [facility] Comment on above: Performed By: #### H FPF #### [facility] [address] [place] [address] Dr. Sayda Samuels Calcium [Mass/Vol] 8.8 mg/dL Normal 8.5-10.1 [facility] Comment on above: Performed By: #### H FPF #### [facility] [address] [place] [address] Dr. Sayda Samuels Chloride [Moles/Vol] 106 mmol/L Normal 98-107 [facility] Comment on above: Performed By: #### H FPF #### [facility] [address] [place] [address] Dr. Sayda Samuels CHOL-HDL RATIO NORM SEE BELOW Normal [facility] Comment on above: Result Comment: 3.3 - 4.4 LOW RISK 4.4 - 7.1 AVERAGE RISK 7.1 - 11.0 MODERATE RISK >11.0 HIGH RISK Performed By: #### H FPF #### [facility] [address] [place] [address] Dr. Sayda Samuels Cholesterol [Mass/Vol] 162 mg/dL Normal <=200 [facility] Comment on above: Performed By: #### H FPF #### [facility] [address] [place] [address] Dr. Sayda Samuels Cholesterol in HDL [Mass/Vol] 49 mg/dL Normal 40-60 [facility] Comment on above: Performed By: #### H FPF #### [facility] [address] [place] [address] [address] Sayda Samuels Cholesterol in LDL [Mass/Vol] 103.0 mg/dL Normal [facility] Comment on above: Performed By: #### H FPF #### [facility] [address] [place] [address] [address] Sayda Samuels Cholesterol.total/Cho lesterol in HDL [Mass ratio] 3.3 {ratio} Normal [facility] Comment on above: Performed By: #### H FPF #### [facility] [address] [place] [address] Dr. Sayda Samuels CO2 [Moles/Vol] 24.4 mmol/L Normal 21.0-32.0 [facility] Comment on above: Performed By: #### H FPF #### [facility] [address] [place] [address] Dr. Sayda Samuels Creatinine [Mass/Vol] 0.79 mg/dL Normal 0.55-1.02 [facility] Comment on above: Performed By: #### H FPF #### [facility] [address] [place] [address] Dr. Sayda Samuels Globulin (S) [Mass/Vol] 3.4 g/dL Normal [facility] [facility] Comment on above: Performed By: #### H FPF #### [facility] [address] [address] [address] Sayda Samuels Glucose [Mass/Vol] 89 mg/dL Normal 74-106 [facility] Comment on above: Performed By: #### H FPF #### [facility] [address] [address] [address] Sayda Samuels HDL NORMAL > or = 60 mg/dl - LO W CARDIOVASCULAR RISK <40 mg/dl - HIGH CARDIOVASCULAR RISK Normal [facility] Comment on above: Performed By: #### H FPF #### [facility] [address] [place] [address] Dr. Sayda Samuels LDL CALC NORMAL SEE BELOW Normal [facility] Comment on above: Result Comment: <100 mg/dl OPTIMAL 100 - 129 mg/dl NEAR OR ABOVE OPTIMAL 130 - 159 mg/dl BORDERLINE HIGH 160 - 189 mg/dl HIGH >190 mg/dl VERY HIGH Performed By: #### H FPF #### [facility] [address] [address] [address] Sayda Samuels Potassium [Moles/Vol] 4.0 mmol/L Normal 3.5-5.1 [facility] Comment on above: Performed By: #### H FPF #### [facility] [address] [address] [address] Sayda Samuels Protein [Mass/Vol] 7.2 g/dL Normal 6.4-8.2 [facility] Comment on above: Performed By: #### H FPF #### [facility] [address] [address] [address] Sayda Samuels Sodium [Moles/Vol] 141 mmol/L Normal 136-145 [facility] Comment on above: Performed By: #### H FPF #### [facility] [address] [address] [address] Sayda Samuels Triglyceride [Mass/Vol] 50 mg/dL Normal <=150 [facility] Comment on above: Performed By: #### H FPF #### [facility] [address] [address] [address] Sayda Samuels TSH 3.769 uIU/mL Critically high 0.358-3.740 [facility] Comment on above: Performed By: #### H FPF #### [facility] [address] [address] [address] Sayda Samuels Urea nitrogen [Mass/Vol] 19.0 mg/dL Critically high 7.0-18.0 [facility] Comment on above: Performed By: #### H FPF #### [facility] [address] [address] [address] Sayda Samuels Urea nitrogen/Creatinine [Mass ratio] 24.1 mg/mg Normal [facility] Comment on above: Performed By: #### H FPF #### [facility] [address] [address] [address] Sayda Samuels VLDL CALC 10.0 mg/dL Normal [facility] Comment on above: Performed By: #### H FPF #### [facility] [address] [address] [address] Sayda Samuels HCG BETA SUBUNIT QUANTon HCG BETA SUBUNIT QUANT 0.7 mIU/mL Normal 0.0-5.0 [facility] Comment on above: Result Comment: Gest ational Reference Ranges 0 - 1 Weeks 5 - 50 mIU/ml 1 - 2 Weeks 50 - 100 mIU/ml 2 - 3 Weeks 100 - 5,000 mIU/ml 3 - 4 Weeks 500 - 10,000 mIU/ml 1 - 2 Months 1,000 - 200,000 mIU/ml 2 - 3 Months 10,000 - 100,000 mIU/ml 2nd Trimester 3,000 - 5,000 mIU/ml 3rd Trimester 1,000 - 50,000 mIU/mlMale <2 - 5 mIU/ml Performed By: #### C BCWD, BMP, HEPPA, LIPAS, MG, ETOHS, ANION, OSMOL, EGFR1, ABODC, HCGB, TSH3, WKS, CIAT ####[facility] [place] [address] HCG BETA SUBUNIT QUANTon HCG BETA SUBUNIT QUANT 31.2 mIU/mL High 0.0-5.0 [facility] Comment on above: Result Comment: Gest ational Reference Ranges 0 - 1 Weeks 5 - 50 mIU/ml 1 - 2 Weeks 50 - 100 mIU/ml 2 - 3 Weeks 100 - 5,000 mIU/ml 3 - 4 Weeks 500 - 10,000 mIU/ml 1 - 2 Months 1,000 - 200,000 mIU/ml 2 - 3 Months 10,000 - 100,000 mIU/ml 2nd Trimester 3,000 - 5,000 mIU/ml 3rd Trimester 1,000 - 50,000 mIU/mlMale <2 - 5 mIU/ml Performed By: #### C BCWD, BMP, HEPPA, LIPAS, MG, ETOHS, ANION, OSMOL, EGFR1, ABODC, HCGB, TSH3, WKS, CIAT ####[facility] [employer] [address] [place] [address] ABO/RH CAPTUREon 07-13-2018 ABO CAPTURE A Normal [facility] Comment on above: Performed By: #### C BCWD, BMP, HEPPA, LIPAS, MG, ETOHS, ANION, OSMOL, EGFR1, ABODC, HCGB, TSH3, WKS, CIAT ####[facility] [employer] [address] [place] [address] RH CAPTURE (2 D CLONES) Negative Normal [facility] Comment on above: Performed By: #### C BCWD, BMP, HEPPA, LIPAS, MG, ETOHS, ANION, OSMOL, EGFR1, ABODC, HCGB, TSH3, WKS, CIAT ####[facility] [address] [place] [address] ANION GAPon 07-13-2018 Anion gap 3 molar conc 12.0 mmol/L Normal 8.0-16.0 [facility] Comment on above: Result Comment: ANIO N GAP = Sodium -(Chloride + CO2) Performed By: #### C BCWD, BMP, HEPPA, LIPAS, MG, ETOHS, ANION, OSMOL, EGFR1, ABODC, HCGB, TSH3, WKS, CIAT ####[facility] [address] [place] [address] BASIC METABOL PANELon 2017 Calcium mass conc 8.9 mg/dL Normal 8.5-10.[address] [facility] Comment on above: Performed By: #### C BCWD, BMP, HEPPA, LIPAS, MG, ETOHS, ANION, OSMOL, EGFR1, ABODC, HCGB, TSH3, WKS, CIAT ####[employer] [address] [id number] Chloride molar conc 107 mmol/L Normal 98-111 [facility] Comment on above: Performed By: #### C BCWD, BMP, HEPPA, LIPAS, MG, ETOHS, ANION, OSMOL, EGFR1, ABODC, HCGB, TSH3, WKS, CIAT ####[employer] [place] [address] CO2 molar conc 21 mmol/L Low 23-33 [facility] Comment on above: Performed By: #### C BCWD, BMP, HEPPA, LIPAS, MG, ETOHS, ANION, OSMOL, EGFR1, ABODC, HCGB, TSH3, WKS, CIAT ####[facility] [address] [place] [address] Creatinine mass conc 0.5 mg/dL Normal 0.4-1.2 [facility] Comment on above: Performed By: #### C BCWD, BMP, HEPPA, LIPAS, MG, ETOHS, ANION, OSMOL, EGFR1, ABODC, HCGB, TSH3, WKS, CIAT ####[address] [place] [address] Glucose mass conc 104 mg/dL Normal 70-[address] [facility] Comment on above: Performed By: #### C BCWD, BMP, HEPPA, LIPAS, MG, ETOHS, ANION, OSMOL, EGFR1, ABODC, HCGB, TSH3, WKS, CIAT ####[address] [address] Potassium molar conc 3.9 mmol/L Normal 3.5-5.2 [facility] Comment on above: Performed By: #### C BCWD, BMP, HEPPA, LIPAS, MG, ETOHS, ANION, OSMOL, EGFR1, ABODC, HCGB, TSH3, WKS, CIAT ####[facility] [address] [place] [address] Sodium molar conc 140 mmol/L Normal 135-[address] [facility] Comment on above: Performed By: #### C BCWD, BMP, HEPPA, LIPAS, MG, ETOHS, ANION, OSMOL, EGFR1, ABODC, HCGB, TSH3, WKS, CIAT ####[facility] [address] [place] [address] Urea nitrogen mass conc 7 mg/dL Normal 7-22 [facility] Comment on above: Performed By: #### C BCWD, BMP, HEPPA, LIPAS, MG, ETOHS, ANION, OSMOL, EGFR1, ABODC, HCGB, TSH3, WKS, CIAT ####[place] [address] CALCULATED OSMOLALITYon Osmolality 277.7 mOsmol/kg Normal 275.0-300. [facility] Comment on above: Performed By: #### C BCWD, BMP, HEPPA, LIPAS, MG, ETOHS, ANION, OSMOL, EGFR1, ABODC, HCGB, TSH3, WKS, CIAT ####[place] [address] CBC WITH DIFFERENTIALon ABS IMMATURE GRANS (IG) 0.01 thou/mm3 Normal 0.00-0.07 [facility] Comment on above: Performed By: #### C BCWD, BMP, HEPPA, LIPAS, MG, ETOHS, ANION, OSMOL, EGFR1, ABODC, HCGB, TSH3, WKS, CIAT ####[place] [address] ABS NEUTROPHILS 3.4 thou/mm3 Normal 1.8-7.[address] [facility] Comment on above: Performed By: #### C BCWD, BMP, HEPPA, LIPAS, MG, ETOHS, ANION, OSMOL, EGFR1, ABODC, HCGB, TSH3, WKS, CIAT ####[place] [address] Basophils Auto #/vol (Bld) 0.1 thou/mm3 Normal 0.0-0.1 [facility] Comment on above: Performed By: #### C BCWD, BMP, HEPPA, LIPAS, MG, ETOHS, ANION, OSMOL, EGFR1, ABODC, HCGB, TSH3, WKS, CIAT ####[place] [address] Basophils/100 WBC Auto (Bld) 1.5 % Normal [facility] Comment on above: Performed By: #### C BCWD, BMP, HEPPA, LIPAS, MG, ETOHS, ANION, OSMOL, EGFR1, ABODC, HCGB, TSH3, WKS, CIAT ####[place] [address] Eosinophils Auto #/vol (Bld) 0.0 thou/mm3 Normal 0.0-0.4 [facility] Comment on above: Performed By: #### C BCWD, BMP, HEPPA, LIPAS, MG, ETOHS, ANION, OSMOL, EGFR1, ABODC, HCGB, TSH3, WKS, CIAT ####[place] [address] Eosinophils/100 WBC Auto (Bld) 0.9 % Normal [facility] Comment on above: Performed By: #### C BCWD, BMP, HEPPA, LIPAS, MG, ETOHS, ANION, OSMOL, EGFR1, ABODC, HCGB, TSH3, WKS, CIAT ####[place] [address] Erythrocyte distribution width Auto Ratio (RBC) 13.0 % Normal 11.5-14.5 [facility] Comment on above: Performed By: #### C BCWD, BMP, HEPPA, LIPAS, MG, ETOHS, ANION, OSMOL, EGFR1, ABODC, HCGB, TSH3, WKS, CIAT ####[place] [address] Hematocrit Auto Volume Fraction (Bld) 40.6 % Normal 37.0-47.0 [facility] Comment on above: Performed By: #### C BCWD, BMP, HEPPA, LIPAS, MG, ETOHS, ANION, OSMOL, EGFR1, ABODC, HCGB, TSH3, WKS, CIAT ####[place] [address] Hemoglobin mass conc (Bld) 12.9 gm/dl Normal 12.0-16.0 [facility] Comment on above: Performed By: #### C BCWD, BMP, HEPPA, LIPAS, MG, ETOHS, ANION, OSMOL, EGFR1, ABODC, HCGB, TSH3, WKS, CIAT ####[place] [address] IMMATURE GRANS (IG) 0.2 % Normal [facility] Comment on above: Performed By: #### C BCWD, BMP, HEPPA, LIPAS, MG, ETOHS, ANION, OSMOL, EGFR1, ABODC, HCGB, TSH3, WKS, CIAT ####[place] [address] Lymphocytes Auto #/vol (Bld) 1.5 thou/mm3 Normal 1.0-4.8 [facility] Comment on above: Performed By: #### C BCWD, BMP, HEPPA, LIPAS, MG, ETOHS, ANION, OSMOL, EGFR1, ABODC, HCGB, TSH3, WKS, CIAT ####[place] [address] Lymphocytes/100 WBC Auto (Bld) 27.8 % Normal [facility] Comment on above: Performed By: #### C BCWD, BMP, HEPPA, LIPAS, MG, ETOHS, ANION, OSMOL, EGFR1, ABODC, HCGB, TSH3, WKS, CIAT ####[place] [address] MCH Auto Entitic mass (RBC) 28.6 pg Normal 26.0-33.0 [facility] Comment on above: Performed By: #### C BCWD, BMP, HEPPA, LIPAS, MG, ETOHS, ANION, OSMOL, EGFR1, ABODC, HCGB, TSH3, WKS, CIAT ####[place] [address] MCHC Auto mass conc (RBC) 31.8 gm/dl Low 32.2-35.5 [facility] Comment on above: Performed By: #### C BCWD, BMP, HEPPA, LIPAS, MG, ETOHS, ANION, OSMOL, EGFR1, ABODC, HCGB, TSH3, WKS, CIAT ####[place] [address] MCV Auto Entitic volume (RBC) 90.0 fL Normal 81.0-99.0 [facility] Comment on above: Performed By: #### C BCWD, BMP, HEPPA, LIPAS, MG, ETOHS, ANION, OSMOL, EGFR1, ABODC, HCGB, TSH3, WKS, CIAT ####[address] [address] Monocytes Auto #/vol (Bld) 0.4 thou/mm3 Normal 0.4-1.3 [facility] Comment on above: Performed By: #### C BCWD, BMP, HEPPA, LIPAS, MG, ETOHS, ANION, OSMOL, EGFR1, ABODC, HCGB, TSH3, WKS, CIAT ####[address] [address] Monocytes/100 WBC Auto (Bld) 7.2 % Normal [facility] Comment on above: Performed By: #### C BCWD, BMP, HEPPA, LIPAS, MG, ETOHS, ANION, OSMOL, EGFR1, ABODC, HCGB, TSH3, WKS, CIAT ####[address] [address] Neutrophils/100 WBC Auto (Bld) 62.4 % Normal [facility] Comment on above: Performed By: #### C BCWD, BMP, HEPPA, LIPAS, MG, ETOHS, ANION, OSMOL, EGFR1, ABODC, HCGB, TSH3, WKS, CIAT ####[address] [address] Nucleated RBC/100 WBC Ratio (Bld) 0 /100 wbc Normal [facility] Comment on above: Performed By: #### C BCWD, BMP, HEPPA, LIPAS, MG, ETOHS, ANION, OSMOL, EGFR1, ABODC, HCGB, TSH3, WKS, CIAT ####[address] [address] Platelet mean volume Auto Entitic volume (Bld) 9.9 fL Normal 9.4-12.4 [facility] Comment on above: Performed By: #### C BCWD, BMP, HEPPA, LIPAS, MG, ETOHS, ANION, OSMOL, EGFR1, ABODC, HCGB, TSH3, WKS, CIAT ####[place] [address] Platelets Auto #/vol (Bld) 269 thou/mm3 Normal 130-400 [facility] Comment on above: Performed By: #### C BCWD, BMP, HEPPA, LIPAS, MG, ETOHS, ANION, OSMOL, EGFR1, ABODC, HCGB, TSH3, WKS, CIAT ####[place] [address] RBC Auto #/vol (Bld) 4.51 mill/mm3 Normal 4.20-5.40 [facility] Comment on above: Performed By: #### C BCWD, BMP, HEPPA, LIPAS, MG, ETOHS, ANION, OSMOL, EGFR1, ABODC, HCGB, TSH3, WKS, CIAT ####[place] [address] RDW-SD 42.5 fL Normal 35.0-45.0 [facility] Comment on above: Performed By: #### C BCWD, BMP, HEPPA, LIPAS, MG, ETOHS, ANION, OSMOL, EGFR1, ABODC, HCGB, TSH3, WKS, CIAT ####[place] [address] WBC Auto #/vol (Bld) 5.4 thou/mm3 Normal 4.8-10.8 [facility] Comment on above: Performed By: #### C BCWD, BMP, HEPPA, LIPAS, MG, ETOHS, ANION, OSMOL, EGFR1, ABODC, HCGB, TSH3, WKS, CIAT ####[address] [place] [address] DRUG ABUSE SCREENon 07-13-20 18 AMPHETAMINE/METHAMPH Negative Normal NEGATIVE [facility] Comment on above: Performed By: #### C BCWD, BMP, HEPPA, LIPAS, MG, ETOHS, ANION, OSMOL, EGFR1, ABODC, HCGB, TSH3, WKS, CIAT ####[place] [address] BARBITURATE Negative Normal NEGATIVE [facility] Comment on above: Performed By: #### C BCWD, BMP, HEPPA, LIPAS, MG, ETOHS, ANION, OSMOL, EGFR1, ABODC, HCGB, TSH3, WKS, CIAT ####[place] [address] Benzodiazepines Screen Ql (U) Negative Normal NEGATIVE [facility] Comment on above: Performed By: #### C BCWD, BMP, HEPPA, LIPAS, MG, ETOHS, ANION, OSMOL, EGFR1, ABODC, HCGB, TSH3, WKS, CIAT ####[place] [address] Cannabinoids Screen Ql (U) Negative Normal NEGATIVE [facility] Comment on above: Performed By: #### C BCWD, BMP, HEPPA, LIPAS, MG, ETOHS, ANION, OSMOL, EGFR1, ABODC, HCGB, TSH3, WKS, CIAT ####[place] [address] COCAINE METABOLITE Negative Normal NEGATIVE [facility] Comment on above: Performed By: #### C BCWD, BMP, HEPPA, LIPAS, MG, ETOHS, ANION, OSMOL, EGFR1, ABODC, HCGB, TSH3, WKS, CIAT ####[place] [address] Opiates Ql (U) Negative Normal NEGATIVE [facility] Comment on above: Performed By: #### C BCWD, BMP, HEPPA, LIPAS, MG, ETOHS, ANION, OSMOL, EGFR1, ABODC, HCGB, TSH3, WKS, CIAT ####[place] [address] OXYCODONE Negative Normal NEGATIVE [facility] Comment on above: Performed By: #### C BCWD, BMP, HEPPA, LIPAS, MG, ETOHS, ANION, OSMOL, EGFR1, ABODC, HCGB, TSH3, WKS, CIAT ####[address] [place] [address] Phencyclidine Ql (U) Negative Normal NEGATIVE [facility] Comment on above: Result Comment: A N egative result for a drug abuse screen test indicates that the drug concentration is below the following cutoffs: Amphetamine/Methamphetamine 1000 ng/ml Barbiturate 200 ng/ml Benzodiazapine 200 ng/ml Cannabinoids 50 ng/ml Cocaine Metabolite 300 ng/ml Opiates 300 ng/ml Oxycodone 100 ng/ml Phencyclidine 25 ng/mlA Positive result for a drug abuse screen test should be considered presumptive positive until/unless confirmed by another method. (Additional request)Quantitative values from a reference laboratory are available upon additional request.These results are for medical use only. Performed By: #### C BCWD, BMP, HEPPA, LIPAS, MG, ETOHS, ANION, OSMOL, EGFR1, ABODC, HCGB, TSH3, WKS, CIAT ####[facility] [place] [address] ETHYL ALCOHOL BLOODon 2017 ETHYL ALCOHOL BLOOD < 0.01 Normal 0.00 [facility] Comment on above: Performed By: #### C BCWD, BMP, HEPPA, LIPAS, MG, ETOHS, ANION, OSMOL, EGFR1, ABODC, HCGB, TSH3, WKS, CIAT ####[facility] [place] [address] GFR, ESTIMATEDon 07-13-2018 GFR/1.73 sq M.predicted MDRD vol rate/area mL/min/{1.73_m2} Normal [facility] Comment on above: Result Comment: Drake wasserman Description GFR, ml/min/1.73 m2 - At increased risk > or = 60 (with chronic kidney disease risk factors) 1 Normal or increased GFR > or = 90 2 Mildly or decreased GFR 60 - 89 3 Moderately decreased GFR 30 - 59 4 Severely decreased GFR 15 - 29 5 Kidney failure <15 (or dialysis)Estimated GFR calculated using abbreviated MDRD formula asrecommended by National Kid[employer] Foundation. Calculation basedupon serum creatinine and adjusted for age, gender & race.Lorraine. Internal Med., Vol. 139 (2) pg 137-147. Performed By: #### C BCWD, BMP, HEPPA, LIPAS, MG, ETOHS, ANION, OSMOL, EGFR1, ABODC, HCGB, TSH3, WKS, CIAT ####[facility] [employer] [id number] [place] [address] HCG BETA SUBUNIT QUANTon HCG BETA SUBUNIT QUANT 179.6 mIU/mL High 0.0-5.0 [facility] Comment on above: Result Comment: Gest ational Reference Ranges 0 - 1 Weeks 5 - 50 mIU/ml 1 - 2 Weeks 50 - 100 mIU/ml 2 - 3 Weeks 100 - 5,000 mIU/ml 3 - 4 Weeks 500 - 10,000 mIU/ml 1 - 2 Months 1,000 - 200,000 mIU/ml 2 - 3 Months 10,000 - 100,000 mIU/ml 2nd Trimester 3,000 - 5,000 mIU/ml 3rd Trimester 1,000 - 50,000 mIU/mlMale <2 - 5 mIU/ml Performed By: #### C BCWD, BMP, HEPPA, LIPAS, MG, ETOHS, ANION, OSMOL, EGFR1, ABODC, HCGB, TSH3, WKS, CIAT ####[facility] [employer] [place] [address] HEPATIC FUNCTION PANELon Albumin mass conc 4.1 g/dL Normal 3.5-5.[address] [facility] Comment on above: Performed By: #### C BCWD, BMP, HEPPA, LIPAS, MG, ETOHS, ANION, OSMOL, EGFR1, ABODC, HCGB, TSH3, WKS, CIAT ####[facility] [employer] [id number] [place] [address] ALP enzyme act/vol 53 U/L Normal 38-126 [facility] Comment on above: Performed By: #### C BCWD, BMP, HEPPA, LIPAS, MG, ETOHS, ANION, OSMOL, EGFR1, ABODC, HCGB, TSH3, WKS, CIAT ####[facility] [employer] [id number] [place] [address] ALT enzyme act/vol 13 U/L Normal 11-66 [facility] Comment on above: Performed By: #### C BCWD, BMP, HEPPA, LIPAS, MG, ETOHS, ANION, OSMOL, EGFR1, ABODC, HCGB, TSH3, WKS, CIAT ####[address] [place] [address] AST enzyme act/vol 18 U/L Normal 5-40 [facility] Comment on above: Performed By: #### C BCWD, BMP, HEPPA, LIPAS, MG, ETOHS, ANION, OSMOL, EGFR1, ABODC, HCGB, TSH3, WKS, CIAT ####[address] [place] [address] Bilirubin mass conc mg/dL Normal 0.0-0.3 [facility] Comment on above: Performed By: #### C BCWD, BMP, HEPPA, LIPAS, MG, ETOHS, ANION, OSMOL, EGFR1, ABODC, HCGB, TSH3, WKS, CIAT ####[place] [address] Bilirubin Ql (U) 0.4 mg/dL Normal 0.3-1.2 [facility] Comment on above: Performed By: #### C BCWD, BMP, HEPPA, LIPAS, MG, ETOHS, ANION, OSMOL, EGFR1, ABODC, HCGB, TSH3, WKS, CIAT ####[place] [address] Protein mass conc 7.0 g/dL Normal 6.1-8.[address] [facility] Comment on above: Performed By: #### C BCWD, BMP, HEPPA, LIPAS, MG, ETOHS, ANION, OSMOL, EGFR1, ABODC, HCGB, TSH3, WKS, CIAT ####[address] [place] [address] INDIRECT SARIKA CAPTUREon INDIRECT SARIKA CAPTURE Negative Normal [facility] Comment on above: Performed By: #### C BCWD, BMP, HEPPA, LIPAS, MG, ETOHS, ANION, OSMOL, EGFR1, ABODC, HCGB, TSH3, WKS, CIAT ####[address] [place] [address] LIPASEon 07-13-2018 Lipase enzyme act/vol 21.0 U/L Normal 5.6-51.3 [facility] Comment on above: Performed By: #### C BCWD, BMP, HEPPA, LIPAS, MG, ETOHS, ANION, OSMOL, EGFR1, ABODC, HCGB, TSH3, WKS, CIAT ####[facility] [place] [address] MAGNESIUMon 07-13-2018 Magnesium mass conc 1.9 mg/dL Normal 1.6-2.4 [facility] Comment on above: Performed By: #### C BCWD, BMP, HEPPA, LIPAS, MG, ETOHS, ANION, OSMOL, EGFR1, ABODC, HCGB, TSH3, WKS, CIAT ####[address] [address] REFLEX CULT URon 07-13-2018 REFLEX CULT UR MICROBIOLOGY REPORT [facility], [address] [place] [address], [id number]: VICKI CAMACHO : ED [phone] : 1990 AGE: 27 SEX: FADM: 07/13/18 Att. Physician: David DECKER Id: [id number] Req. Physician: Seth DECKER: Specimen not receivedSite:Collected: Current Antibiotics:Antibiotics comment: STATUS OF ORDERED AND REPORTED TESTSREFLEX CULT UR PENDINGREFLEX CULT UR - PENDING [facility] Comment on above: Performed By: #### C BCWD, BMP, HEPPA, LIPAS, MG, ETOHS, ANION, OSMOL, EGFR1, ABODC, HCGB, TSH3, WKS, CIAT ####[address] [place] [address] RHOGAM VIALon 07-13-2018 RHOGAM VIAL [id number] issued Normal [facility] Comment on above: Performed By: #### C BCWD, BMP, HEPPA, LIPAS, MG, ETOHS, ANION, OSMOL, EGFR1, ABODC, HCGB, TSH3, WKS, CIAT ####[place] [address] TSH THIRD GENERATIONon 07-13 TSH THIRD GENERATION 3.770 uIU/mL Normal 0.400-4.20 [facility] Comment on above: Performed By: #### C BCWD, BMP, HEPPA, LIPAS, MG, ETOHS, ANION, OSMOL, EGFR1, ABODC, HCGB, TSH3, WKS, CIAT ####[place] [address] UA WITH MICROSCOPICon 2017 COLOR DARK YELLOW Abnormal STRAW-YELL [facility] Comment on above: Performed By: #### C BCWD, BMP, HEPPA, LIPAS, MG, ETOHS, ANION, OSMOL, EGFR1, ABODC, HCGB, TSH3, WKS, CIAT ####[place] [address] BACTERIA NONE Normal FEW/NONE S [facility] Comment on above: Performed By: #### C BCWD, BMP, HEPPA, LIPAS, MG, ETOHS, ANION, OSMOL, EGFR1, ABODC, HCGB, TSH3, WKS, CIAT ####[place] [address] CASTS NONE SEEN Normal NONE SEEN [facility] Comment on above: Performed By: #### C BCWD, BMP, HEPPA, LIPAS, MG, ETOHS, ANION, OSMOL, EGFR1, ABODC, HCGB, TSH3, WKS, CIAT ####[place] [address] CASTS 2 NONE SEEN Normal NONE SEEN [facility] Comment on above: Performed By: #### C BCWD, BMP, HEPPA, LIPAS, MG, ETOHS, ANION, OSMOL, EGFR1, ABODC, HCGB, TSH3, WKS, CIAT ####[place] [address] CRYSTALS NONE SEEN Normal NONE SEEN [facility] Comment on above: Performed By: #### C BCWD, BMP, HEPPA, LIPAS, MG, ETOHS, ANION, OSMOL, EGFR1, ABODC, HCGB, TSH3, WKS, CIAT ####[place] [address] EPITHELIAL 0 /hpf Normal 3-5/hpf [facility] Comment on above: Performed By: #### C BCWD, BMP, HEPPA, LIPAS, MG, ETOHS, ANION, OSMOL, EGFR1, ABODC, HCGB, TSH3, WKS, CIAT ####[place] [address] MISCELLANEOUS 2 NONE SEEN Normal [facility] Comment on above: Performed By: #### C BCWD, BMP, HEPPA, LIPAS, MG, ETOHS, ANION, OSMOL, EGFR1, ABODC, HCGB, TSH3, WKS, CIAT ####[place] [address] RBC > 200 Normal 0-2/hpf [facility] Comment on above: Performed By: #### C BCWD, BMP, HEPPA, LIPAS, MG, ETOHS, ANION, OSMOL, EGFR1, ABODC, HCGB, TSH3, WKS, CIAT ####[place] [address] RENAL EPITHELIAL NONE SEEN Normal NONE SEEN [facility] Comment on above: Performed By: #### C BCWD, BMP, HEPPA, LIPAS, MG, ETOHS, ANION, OSMOL, EGFR1, ABODC, HCGB, TSH3, WKS, CIAT ####[place] [address] WBC 2 /hpf Normal 0-4/hpf [facility] Comment on above: Performed By: #### C BCWD, BMP, HEPPA, LIPAS, MG, ETOHS, ANION, OSMOL, EGFR1, ABODC, HCGB, TSH3, WKS, CIAT ####[place] [address] YEAST NONE SEEN Normal NONE SEEN [facility] Comment on above: Performed By: #### C BCWD, BMP, HEPPA, LIPAS, MG, ETOHS, ANION, OSMOL, EGFR1, ABODC, HCGB, TSH3, WKS, CIAT ####[place] [address] BILIRUBIN Negative Normal NEGATIVE [facility] Comment on above: Performed By: #### C BCWD, BMP, HEPPA, LIPAS, MG, ETOHS, ANION, OSMOL, EGFR1, ABODC, HCGB, TSH3, WKS, CIAT ####[place] [address] BLOOD LARGE Abnormal NEGATIVE [facility] Comment on above: Performed By: #### C BCWD, BMP, HEPPA, LIPAS, MG, ETOHS, ANION, OSMOL, EGFR1, ABODC, HCGB, TSH3, WKS, CIAT ####[place] [address] CHARACTER CLOUDY Abnormal CLEAR-SL C [facility] Comment on above: Performed By: #### C BCWD, BMP, HEPPA, LIPAS, MG, ETOHS, ANION, OSMOL, EGFR1, ABODC, HCGB, TSH3, WKS, CIAT ####[place] [address] GLUCOSE Negative Normal NEGATIVE [facility] Comment on above: Performed By: #### C BCWD, BMP, HEPPA, LIPAS, MG, ETOHS, ANION, OSMOL, EGFR1, ABODC, HCGB, TSH3, WKS, CIAT ####[place] [address] KETONES Negative Normal NEGATIVE [facility] Comment on above: Performed By: #### C BCWD, BMP, HEPPA, LIPAS, MG, ETOHS, ANION, OSMOL, EGFR1, ABODC, HCGB, TSH3, WKS, CIAT ####[place] [address] LEUKOCYTES TRACE Abnormal NEGATIVE [facility] Comment on above: Performed By: #### C BCWD, BMP, HEPPA, LIPAS, MG, ETOHS, ANION, OSMOL, EGFR1, ABODC, HCGB, TSH3, WKS, CIAT ####[address] [place] [address] NITRITE Negative Normal NEGATIVE [facility] Comment on above: Performed By: #### C BCWD, BMP, HEPPA, LIPAS, MG, ETOHS, ANION, OSMOL, EGFR1, ABODC, HCGB, TSH3, WKS, CIAT ####[place] [address] PH 6.5 Normal 5.0 - 9.0 [facility] Comment on above: Performed By: #### C BCWD, BMP, HEPPA, LIPAS, MG, ETOHS, ANION, OSMOL, EGFR1, ABODC, HCGB, TSH3, WKS, CIAT ####[place] [address] PROTEIN TRACE Abnormal NEGATIVE [facility] Comment on above: Performed By: #### C BCWD, BMP, HEPPA, LIPAS, MG, ETOHS, ANION, OSMOL, EGFR1, ABODC, HCGB, TSH3, WKS, CIAT ####[place] [address] SPECIFIC GRAVITY 1.018 Normal 1.002-1.03 [facility] Comment on above: Performed By: #### C BCWD, BMP, HEPPA, LIPAS, MG, ETOHS, ANION, OSMOL, EGFR1, ABODC, HCGB, TSH3, WKS, CIAT ####[place] [address] UROBILINOGEN 0.2 eu/dl Normal 0.0 - 1.0 [facility] Comment on above: Performed By: #### C BCWD, BMP, HEPPA, LIPAS, MG, ETOHS, ANION, OSMOL, EGFR1, ABODC, HCGB, TSH3, WKS, CIAT ####[place] [address] US OB TRANSVAGINALon 018 US OB TRANSVAGINAL PROCEDURE: US OB TRANSVAGINALCLINICAL INFORMATION: 6 weeks ; vaginal bleeding.COMPARISON: No prior study. TECHNIQUE: Grayscale and color transvaginal sonographic imaging of the pelvis performed in longitudinal and transverse planes.TECHNICAL DATA:LMP: 2018G 1 P 0 A 0Uterus - 7.39 x 5.67 x 4.64 cmEndometrial Thickness - 1.25 cmFHR - no fetus identifiedMean Gestational Sac Diameter . . . . . . . 0.42 cm . . . . . . . 4 weeks 6 daysCRL- no fetus identifiedYolk Sac -0.21 cmAUA -4 weeks 6 days . . . KATERINE 03.16.2019Gestational Age (LMP) -5 weeks 6 days . . . KATERINE 03.09.2019Right Ovary -2.40 x 2.50 x 1.56 cmLeft Ovary -2.54 x 2.74 x 1.63 cmFINDINGS:Uterine size: Normal.IUP: 1. There is a gestational sac within the endometrial cavity along the lower uterine segment containing a 0.2 cm yolk sac. The sac diameter is a 0.4 cm which corresponds to an ultrasound age of 4 weeks 6 days and an estimated delivery of a 5 2018. There is no pole identified. The location of the gestational sac suggest an impending .Cervix: 1. The cervical length is normal and the endocervical canal is closed.Right ovary/right adnexa: Normal.Left ovary/left adnexa: Normal.Free fluid: 1. There is a small amount of free fluid within the cul-de-sac.IMPRESSION: 1. There is a gestational sac within the endometrial cavity along the lower uterine segment containing a 0.2 cm yolk sac. The sac diameter is a 0.4 cm which corresponds to an ultrasound age of 4 weeks 6 days and an estimated delivery of a 5 2018. There is no pole identified. The location of the gestational sac suggest an impending .2. There is a small amount of free fluid within the cul-de-sac.3. Correlation with serial beta-hCG levels and a short interval follow-up pelvic ultrasound examination recommended to differentiate an impending from a viable intrauterine which is felt to be less likely.This report has been created using voice recognition software. It may contain minor errors which are inherent in voice recognition technology.Final report electronically signed by Dr. Gael Martinez on 07/13/2018 1:31 PMInterpreted by:Gael Martinez MDSigned by:Gael Martinez MD07/13/18inal result Normal [facility] WEEKS GESTATIONon 07-13-2018 WEEKS GESTATION 5 weeks Normal [facility] Comment on above: Performed By: #### C BCWD, BMP, HEPPA, LIPAS, MG, ETOHS, ANION, OSMOL, EGFR1, ABODC, HCGB, TSH3, WKS, CIAT ####[facility] [address] [place] [address] Vital Signs Date Time Vital Sign Value Performing Clinician Zeniai litevans 04-30-2023 13:00-0400 Respiratory rate 16 /min DIRECTOR [employer] Winter Stephanie Work Phone: [facility] 04-30-2023 08:45-0400 Body temperature 98.2 [degF] DIRECTOR [employer] Winter Stephanie Work Phone: [facility] 04-30-2023 08:45-0400 Diastolic blood pressure 76 mm[Hg] DIRECTOR [employer] Winter Stephanie Work Phone: [facility] 04-30-2023 08:45-0400 Heart rate 79 /min DIRECTOR [employer] Winter Stephanie Work Phone: [facility] 04-30-2023 08:45-0400 SaO2% (BldA) [Mass fraction] 99 % DIRECTOR [employer] Winter Stephanie Work Phone: [facility] 04-30-2023 08:45-0400 Systolic blood pressure 116 mm[Hg] DIRECTOR [employer] Winter Stephanie Work Phone: [facility] 04-27-2023 21:08-0400 Body height 175.26 cm DIRECTOR [employer] Winter Stephanie Work Phone: [facility] 04-27-2023 21:08-0400 Body weight 127 kg DIRECTOR [employer] Winter Stephanie Work Phone: [facility] 02-15-2023 10:54-0400 Body height 175.26 cm DIRECTOR [employer] Winter Stephanie Work Phone: [facility] 02-15-2023 10:54-0400 Body temperature 98.1 [degF] DIRECTOR [employer] Winterbailee Kovacsmer Work Phone: [facility] 02-15-2023 10:54-0400 Body weight 116.15 kg DIRECTOR [employer] Winterabilee Kovacsmer Work Phone: [facility] 02-15-2023 10:54-0400 Diastolic blood pressure 81 mm[Hg] DIRECTOR [employer] Winter Stephanie Work Phone: [facility] 02-15-2023 10:54-0400 Heart rate 98 /min DIRECTOR [employer] Winter Stephanie Work Phone: [facility] 02-15-2023 10:54-0400 Respiratory rate 20 /min DIRECTOR [employer] Winter Stephanie Work Phone: [facility] 02-15-2023 10:54-0400 SaO2% (BldA) [Mass fraction] 100 % DIRECTOR [employer] Winterbailee Kovacsmer Work Phone: [facility] 02-15-2023 10:54-0400 Systolic blood pressure 132 mm[Hg] DIRECTOR [employer] Winterbailee Kovacsmer Work Phone: [facility] 02-01-2023 15:30-0400 Diastolic blood pressure 79 mm[Hg] DIRECTOR [employer] Winterbailee Kovacsmer Work Phone: [facility] 02-01-2023 15:30-0400 Heart rate 90 /min DIRECTOR [employer] Winter Stephanie Work Phone: [facility] 02-01-2023 15:30-0400 Systolic blood pressure 123 mm[Hg] DIRECTOR [employer] Winter Stephanie Work Phone: [facility] Encounters Encounter Date Encounter Type Care Provider Facility Start: 05-09-2023 End: 05-09[facility] Start: 05-09-2023 End: 05-09-2023 ambulatory DIRECTOR [employer] Winter Marina Work Phone: [facility] Work Phone: Start: 05-09-2023 End: 05-09-2023 Patient encounter procedure DIRECTOR [employer] Winter Stephanie Work Phone: [facility]- Visit Work Phone: Start: 05-03-2023 End: 05-03-2023 ambulatory Asha Gracie Facility:[facility] Start: 05-03-2023 End: 05-03-2023 ambulatory DIRECTOR [employer] Winter Aurora Stephanie Work Phone: [facility] Work Phone: Start: 05-03-2023 End: 05-03-2023 Patient encounter procedure DIRECTOR [employer] Winter Stephanie Work Phone: [facility]- Visit Work Phone: Start: 05-01-2023 End: 05-01-2023 ambulatory Asha Gracie Facility:[facility] Start: 05-01-2023 End: 05-01-2023 ambulatory DIRECTOR [employer] Winter Aurora Stephanie Work Phone: [facility] Work Phone: Start: 05-01-2023 End: 05-01-2023 Patient encounter procedure DIRECTOR [employer] Winter Stephanie Work Phone: [facility]- Visit Work Phone: Start: 04-27-2023 End: 04-30-2023 Evaluation and management of inpatient Rodger Printy Facility:[facility] Start: 04-27-2023 End: 04-30-2023 Evaluation and management of inpatient DIRECTOR [employer] Winter Stephanie Work Phone: [facility]-[address] Work Phone: Start: 03-28-2023 End: 03-28-2023 ambulatory PHYSICIAN NO FAMILY Facility:[facility] Start: 03-28-2023 End: 03-28-2023 ambulatory DIRECTOR [employer] Winter Aurora Stephanie Work Phone: [facility] Work Phone: Start: 03-28-2023 End: 03-28-2023 Departed Referred DIRECTOR [employer] Winter Stephanie Work Phone: [facility]-Lab [place] Work Phone: Start: 02-15-2023 End: 02-15-2023 Emergency department patient visit Winter Marina Facility:[facility] Start: 02-15-2023 End: 02-15-2023 Emergency department patient visit DIRECTOR [employer] Winter Marina Work Phone: [facility]-Emergency Room Work Phone: Start: 02-01-2023 End: 02-01-2023 ambulatory Shirleneaden Samayoa Facility:[facility] Start: 02-01-2023 Encounter for blood typing Shirlene Samayoa [facility] Start: 02-01-2023 End: 02-01-2023 ambulatory DIRECTOR [employer] Winter Marina Work Phone: [facility] Work Phone: Start: 02-01-2023 End: 02-01-2023 Discharged Recurring DIRECTOR [employer] Winter Marina Work Phone: [facility]-Infusion Therapy - O/P Work Phone: Start: 01-31-2023 End: 01-31-2023 ambulatory DIRECTOR [employer] Winter Marina Work Phone: [facility] Work Phone: Start: 01-31-2023 End: 01-31-2023 Patient encounter procedure DIRECTOR [employer] Winter Marina Work Phone: [facility] [place] Work Phone: Start: 07-18-2022 End: 07-19-2022 ambulatory WINTER MARINA Facility:[facility] Start: 03-29-2022 End: 03-30-2022 ambulatory WINTER MARINA Facility:[facility] Start: 07-24-2018 End: 07-25-2018 Patient encounter procedure DAYANA MIDDLETON [facility] Start: 07-15-2018 End: 07-16-2018 Patient encounter procedure NEELIMA DECKER [facility] Start: 07-13-2018 End: 07-13-2018 Emergency department patient visit Physician No Family [facility] Procedures Date Procedure Procedure Detail Performing Clinician Start: 04-28-2023 Antibody screen Winter Marina Comment on above: Order Comment: Pleas e draw per Lori in BB. MLG Result Comment: PERF ORMED BY: [facility] [address] [place] [address] PATHOLOGIST DRILL PRESSER LIZBET العلي M.D. Start: 04-27-2023 Urine culture DIRECTOR [employer] Farnaz Britton Work Phone: Start: 03-28-2023 Streptococcus agalac tiae culture DIRECTOR [employer] Winter Marina Work Phone: Start: 01-31-2023 Antibody screen Winter Marina Start: 07-24-2018 Gonadotropin chorion ic quantitative Physician No Family Start: 07-15-2018 Gonadotropin chorion ic quantitative Physician No Family Start: 07-13-2018 Urnls dip stick/tabl et reagent auto microscopy Physician No Family Start: 07-13-2018 URINE DRUG SCREEN Physi shamir No Family Start: 07-13-2018 Urnls dip stick/tabl et rgnt auto w/o microscopy Physician No Family Start: 07-13-2018 Us preg uterus real time w/image dcmtn transvag Physician No Family Start: 07-13-2018 VAGINAL EXAM Physician No Family Start: 07-13-2018 ABO/RH Physician No Family Start: 07-13-2018 ANION GAP Physician No Family Start: 07-13-2018 Antibody screen Physici an No Family Start: 07-13-2018 Assay of lipase Physici an No Family Start: 07-13-2018 Assay of magnesium Phys ician No Family Start: 07-13-2018 Assay of thyroid stimulating hormone tsh Physician No Family Start: 07-13-2018 Basic metabolic pane l calcium total Physician No Family Start: 07-13-2018 Blood count complete auto&auto difrntl wbc Physician No Family Start: 07-13-2018 Creatinine blood Physic kisha No Family Start: 07-13-2018 ETHANOL Physician No Family Start: 07-13-2018 Gonadotropin chorion ic quantitative Physician No Family Start: 07-13-2018 Hepatic function panel Physician No Family Start: 07-13-2018 OSMOLALITY Physician No Family Start: 07-13-2018 RHOGAM INJECTION ONLY P hysician No Family Start: 07-13-2018 ASSESS HEART TONES Physician No Family Plan of Treatment Date Care Activity Detail Author Start: 04-30-2023 [facility] Start: 04-28-2023 Hospital admission [facility] Start: 04-27-2023 Hospital admission [facility] Start: 04-27-2023 Delivery of Products of Conception, External Approach Delivery of Products of Conception, External Approach [facility] Start: 04-27-2023 Division of Female Perineum, External Approach Division of Female Perineum, External Approach [facility] Start: 04-27-2023 Introduction of Other Hormone into Peripheral Vein, Percutaneous Approach Introduction of Other Hormone into Peripheral Vein, Percutaneous Approach [facility] Start: 03-28-2023 Group B Streptococcus Culture Group B Streptococcus Culture [facility] Patient Education [facility] Work Phone: Patient referral [facility] Work Phone: Streptococcus agalac tiae [Presence] in Unspecified specimen by Organism specific culture [facility] Immunizations Immunization Date Immunization Notes Care Provider Taina mcgrath 04-29-2023 tetanus toxoid, redu lynda diphtheria toxoid, and acellular pertussis vaccine, adsorbed DIRECTOR [employer] Winter Marina Work Phone: [facility] Payers Date Payer Category Payer Private Health Insurance [id number] 1990 Unknown [id number] 2.16.8 [id number] 1990 Unknown [id number] 2.16.8 [id number] 1990 Unknown [id number] 2.16.8 [id number] 1990 Unknown [id number] 2.16.84 [id number] 1959 Self-pay 1959 Unknown [id number] Unknown [id number] 2.16.84 [id number] Unknown [id number] 2.16.8 [id number] Unknown [id number] 2.16.8 [id number] Unknown [id number] 2.16.8 [id number] Unknown [id number] 2.16.8 [id number] Unknown [id number] 2.16.8 [id number] Unknown [id number] 2.16.8 [id number] Unknown [id number] 2.16.8 [id number] Social History Date Type Detail Facility Tobacco smoking stat us INIS Unknown if ever smoked [facility] Work Phone: Start: 1990 Sex Assigned At Female [facility] Start: 02-15-2023 End: 04-28-2023 Tobacco smoking status NHIS Never smoked tobacco (finding) [facility] Goals Date Patient Goal Desired Activity /State Functional Status Date Assessment Result Facility 04-30-2023 Functional status Patient at Baseline [facility] Work Phone: Mental Status Date Assessment Result Facility 04-30-2023 Cognitive function Cognitive Sta tus Patient at Baseline [facility] Work Phone: Progress note 04-30-2023 Note Date & Type Note Facility 04-30-2023 Progress note Note Date/Time April 30, 2023 6:58am [facility] EN[facility] [address] [place] [address] [employer] Progress Note Signed Patient: Vicki Williamson MR#: [id number] : 1990 Acct:[id number] Age/Sex: 32 / F Adm Date: 3 Loc: 3S Room: [address] [place] [address] Type: ADM IN Attending Dr: Rodger Jacobsen MD Copies to: ~ Date of Service: 04/30/2023 OB - PN: Subj Subjective Post Delivery Day #: Day 2 Interval history: Vicki is doing well this morning. Her pain is minimal. Bleeding is about the same as a period, and it has improved since yesterday. Normal urine output. No bowel movements yet. She is eating and drinking well. Patient is passing flatus comfortably. She can ambulate around the room with mild discomfort due to pain. No numbness or tingling. She has not noticed any change to LE edema. No concernsat this time. Baby is doing well and . Patient comments: no complaints, pain well controlled, tolerating diet and flatus present; no incisional pain baby status: doing well and nursing well [place] feeding status: exclusively breast feeding OB - PN: Obj Exam Physical Exam Vital signs: Vital Signs - 8 hr 04/30/23 00:30 04/30/23 03:39 Temperature 98.1 F 97.9 F Pulse Rate 89 74 Respiratory Rate 16 16 Blood Pressure 124/77 143/86 H 02 Sat by Pulse Oximetry 99 99 Oxygen Delivery Method Room Air Room Air Narrative: General: No acute distress. Resting comfortably in bed. HEENT: Conjunctiva are clear. No scleral icterus. CV: Regular rate and rhythm. No murmurs rubs or gallops. Respiratory: Breathing comfortably on room air. Clear to auscultation bilaterally. No wheezes, rhonchi, Rales. Abdominal: Soft, nondistended, nontender. Normal active bowel sounds. Fundus is firm 1 cm below the umbilicus. Extremities: No swelling, cyanosis, clubbing. Peripheral pulses intact. No calf tenderness. Skin: No rashes or lesions. Neuro: Sensation grossly intact. Motor function grossly intact. Psych: Good eye contact. Appropriate mood and affect. Speech is clear. Constitutional Constitutional: no acute distress Respiratory Exam Respiratory: Present CTA bilaterally; Absent accessory muscle use, patient mechanically ventilated or decreased breath sounds Cardiovascular Exam Cardiovascular: Present RRR, S1 and S2 Abdominal Exam Abdominal: Present soft and normoactive bowel sounds Fundus: Present firm Urinary Catheter Management Straight: Cath placed during this visit: no OB - PN: Obj Data Labs 04/29/23 06:25 Labs: 04/29/23 06:25: Uncorrected WBC Count 9.1, MCV 86.8, MCH 29.5, MCHC 34.0, RDW 12.9, Plt Count 145 L D, MPV 9.6, Neut % (Auto) 66.3, Lymph % (Auto) 24.0, Martin % (Auto) 7.2, Eos % (Auto) 1.8, Baso % (Auto) 0.7, Nucleat RBC Rel Count 0.2, Neut # (Auto) 6.0, Lymph # (Auto) 2.2, Martin # (Auto) 0.7, Eos # (Auto) 0.2, Baso# (Auto) 0.1 04/28/23 08:29: Sample Site Umbilical cord, VBG pH 7.38, VBG pCO2 30.3 L, VBG pO2 45.8 H, VBG HCO3 17.7 L, VBG Total CO2 18.6 L, VBG O2 Saturation 89.0 H*, VBG O2 Content 8.3, VBG Base Excess -6.0 L, FiO2 21, Critical Value 04/27/23 21:00: RPR w/Rflx to Titer Non reactive Microbiology Micro Results: Microbiology 04/27/23 18:45 Urine - Clean-Voided Midstream Urine Culture - Final Escherichia coli Assessment/Plan Assessment (1) Status post vaginal delivery: Status: Acute (2) UTI: Code(s): O86.20 - Urinary tract infection following delivery, unspecified Status: Acute Plan: Rx Keflex 500 BID x 5 days. (3) anemia: Code(s): O90.81 - Anemia of the puerperium Status: Acute Plan: Rx FeSo4 325 1 BID Plan Patient is doing well. is doing well. Patient has met with regarding her breast-feeding and milk production. She notes that she is not making much milk at this time, but continues to latch the baby for feedings. Patient notes she may replace her breast milk with formula at home if she does not produce enough milk. Possible discharge today. Plan day: 2 Vaginal delivery plan (if applicable): routine care, discharge home and follow up 6 weeks Documented By: Elliot Saleh DO 04/30/23 0654 Signed By: <Electronically signed by Elliot Saleh DO> 04/30/23 0946 [facility] Work Phone: Progress note 04-29-2023 Note Date & Type Note Facility 04-29-2023 Progress note Note Date/Time April 29, 2023 10:31am [facility] EN[facility] [address] [place], [place] [id number] [employer] Progress Note Signed Patient: Vicki Williamson MR#: [id number] : 1990 Acct:[id number] Age/Sex: 32 / F Adm Date: 3 Loc: Room: [address] [place] [address] Type: ADM IN Attending Dr: Rodger Jacobsen MD Copies to: ~ Date of Service: 04/29/2023 OB - PN: Subj Subjective Post Delivery Day #: Day 1 Interval history: Vicki is doing well this morning. Her pain is minimal. Bleeding is about the same as a period, and it has improved since yesterday. Normal urine output. No bowel movements yet. She is eating and drinking well. She can ambulate around the room with mild discomfort due to pain. No numbness or tingling. She has not noticed any change to LE edema. No concerns at this time. Baby is doing well andbreastfeeding. Patient comments: no complaints, pain well controlled and tolerating diet [place] baby status: doing well and nursing well OB - PN: Obj Exam Constitutional Constitutional: no acute distress Respiratory Exam Respiratory: Present CTA bilaterally; Absent rales, rhonchi or wheezes Cardiovascular Exam Cardiovascular: Present RRR; Absent murmur, gallop or rubs Abdominal Exam Abdominal: Present soft Fundus: Present firm Comments: About 1 cm below umbilicus Extremities Exam Extremities: Present edema; Absent cyanosis or calf tenderness Neurological Exam Neurological: Present alert and oriented X3 Urinary Catheter Management Straight: Cath placed during this visit: no OB - PN: Obj Data Labs 04/29/23 06:25 Labs: 04/29/23 06:25: Uncorrected WBC Count 9.1, MCV 86.8, MCH 29.5, MCHC 34.0, RDW 12.9, Plt Count 145 L D, MPV 9.6, Neut % (Auto) 66.3, Lymph % (Auto) 24.0, Martin % (Auto) 7.2, Eos % (Auto) 1.8, Baso % (Auto) 0.7, Nucleat RBC Rel Count 0.2, Neut # (Auto) 6.0, Lymph # (Auto) 2.2, Martin # (Auto) 0.7, Eos # (Auto) 0.2, Baso# (Auto) 0.1 04/28/23 14:17: Blood Type A Negative, Antibody Screen Negative, Screen Negative, RhIG Candidate? Yes, RhIG Vial Recommendation 1, Ord Rhogam Clin Indicat Post 04/27/23 18:55: Membrane Rupture Positive H Microbiology Micro Results: Microbiology 04/27/23 18:45 Urine - Clean-Voided Midstream Urine Culture - Preliminary Escherichia coli Assessment/Plan Assessment (1) Status post vaginal delivery: Status: Acute (2) Anemia in : Code(s): O99.019 - Anemia complicating , unspecified trimester Status: Acute Plan: Patient currently asymptomatic from anemia. Ambulating without difficulty, vitalsigns stable. Will have patient continue PNV with iron. Can take supplement at home or increase iron-rich foods. Plan day: 1 Vaginal delivery plan (if applicable): routine care Documented By: Shirlene Samayoa DO 04/29/23 08 25 Signed By: <Electronically signed by Shirlene Samayoa, > 04/29/23 1031 [facility] Work Phone: Procedure note 04-28-2023 Note Date & Type Note Facility 04-28-2023 Procedure note [facility] Evaluation note Note Date & Type Note Facility Evaluation note No assessment information availa ble [facility] Work Phone: Evaluation note Note Date & Type Note Facility Evaluation note Diagnosis Onset Date Anemia in acute anemia acute UTI acute Status post vaginal delivery acute [facility] Work Phone: Hospital Discharge instructions Note Date & Type Note Facility Hospital Discharge instructions Additional Instructions Apply warm moist compresses to the area 3 times a day. [facility] Work Phone: Summary Purpose Family History No Family History Records FoundNo Family History Records FoundNo Family History Records Found Advance Directives No Advanced Directives Records Found Advance Directive Response Recorded Date/ Time Advance Directives No December 21 0 8:28pm Chief Complaint and Reason for Visit Chief Complaint z13.1 z3a.25 z01.83 z34.02 Chief Complaint z13.1 z3a.25 z01.83 z34.02. Chief Complaint z13.1 z3a.25 z01.83 z34.02. Right leg swollen Chief Complaint Right leg swollen Z3A.36 Z36.85 water broke Reason for Visit Anemia in anemia UTI Status post vaginal delivery Chief Complaint Right leg swollen Z3A.36 Z36.85 water broke z39.1 Reason for Visit Anemia in anemia UTI Status post vaginal delivery Chief Complaint Right leg swollen Z3A.36 Z36.85 water broke z39.1 092.4 Reason for Visit Anemia in anemia UTI Status post vaginal delivery Chief Complaint Right leg swollen Z3A.36 Z36.85 water broke z39.1 092.4 092.4 Reason for Visit Anemia in anemia UTI Status post vaginal delivery Additional Source Comments INFORMATION SOURCE (unrecogn ized section and content) DATE CREATED AUTHOR 07/27/2018 [facility] DATE CREATED AUTHOR AUTHOR'S ORGANIZ ATION 07/21/2022 [facility] DATE CREATED AUTHOR AUTHOR'S ORGANIZ ATION 05/27/2023 [facility] Care Teams (unrecognized sec tion and content) Team Status: Active Member Role Status Dates Winter Marina NP-C Primary Care Provider Active Team Status: Inactive Member Role Status Dates Winter Marina NP-Yumi Primary Care Provider Active Shirlene Samayoa DO Attending Provider Active Team Status: Inactive Member Role Status Dates Winter Marina NP-Yumi Primary Care Provider Active Francis Hickman APRN Emergency Provider Active Team Status: Inactive Member Role Status Dates Shirlene Samayoa DO Attending Provider Active Team Status: Inactive Member Role Status Dates Shirlene Samayoa DO Attending Provider Active PHYSICIAN NO FAMILY Primary Care Provider Active Team Status: Inactive Member Role Status Dates Winter Marina NP-C Primary Care Provider Active Rodger Jacobsen MD Admit Provider, Attending Provider A ctive Team Status: Inactive Member Role Status Dates Winter Marina NP-C Primary Care Provider Active Asha Bowman MD Attending Provider Active Goals (unrecognized section and content) Goals may be documented in a n alternate sectionGoals may be documented in an alternate sectionGoals may be documented in an alternate sectionGoals may be documented in an alternate section FOR RECORDS PERTAINING TO PATIENTS WHO ARE OR HAVE BEEN ENROLLED IN A CHEMICAL DEPENDENCY/SUBSTANCEABUSE PROGRAM, SOME INFORMATION MAY BE OMITTED. This clinical summary was aggregated from multiple sources. Caution should be exercised in using it in the provision of clinical care. This summary normalizes information from multiple sources, and as a consequence, information in this document may materially change the coding, format and clinical context of patient data. In addition, data may be omitted in some cases. CLINICAL DECISIONS SHOULD BE BASED ON THE PRIMARY CLINICAL RECORDS. [employer] provides no warranty or guarantee of the accuracy or completeness of information in this document.
[2024-05-16 10:37] LABS: Free T4 1.04 ng/dL (0.76-1.46)
[2024-05-16 10:41] LABS: Thyroid Stimulating Hormone 2.285 uIU/mL (0.358-3.740)
== END 2024-05-16 09:57 | disposition home or self-care (01) ==
LOC: LAB 09:56
PROVIDERS: PCP Nurse Practitioner Family; Visit Provider Nurse Practitioner Family
DX: E07.9 Disorder of thyroid, unspecified (principal)
CPT/HCPCS: 36415; 84439; 84443

== ENCOUNTER 2025-04-07 07:53 | Outpatient (OUT) | payer OTHER, SELFPAY ==
--- OUTSIDE RECORDS SUMMARY | 2025-04-07 08:05 | XMS_ITS | CCD ---
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 Name Role Phone No Family, Physician Unavailable [...] KORY Marina-Yumi [place] [facility] Provider [phone]( [phone] DO Shirlene Samayoa Attending Provider LILA Marina [place] [facility] Provider [phone]( [phone] DO Shirlene Samayoa Attending Provider [phone] AYLEEN Hickman Emergency Provider [phone] LILA Marina [place] [facility] Provider DO Shirlene Samayoa Attending Provider [phone] NO FAMILY, PHYSICIAN Primary Care Provider Unava ilable MD Rodger Jacobsen Admit Provider MD Rodger Jacobsen Attending Provider MD Asha Bowman Attending Provider [place] Primary Care Unavailable Francis Hickman Admitting Unavailable Francis Hickman Attending Unavailable Rodger Jacobsne Admitting Unavailable Rodger Jacobsen Attending Unavailable Winter [place] [facility] Unavailable Asha Bowman Attending Unavailable Laina, [place] [facility] Unavailable Gracie Asha Admitting Unavailable Gracie Asha Admitting Unavailable Asha Bowman Attending Unavailable Winter [place] Primary Care Unavailable Asha Bowman Admitting Unavailable Asha Bowman Attending Unavailable Winter [place] Primary Care Unavailable Shirlene Samayoa Admitting Unavailable Shirlene Samayoa Attending Unavailable Winter [place] Primary Care Unavailable NO FAMILY, PHYSICIAN Primary Care Unavailable Shirlene Samayoa Admitting Unavailable Shirlene Samayoa Attending Unavailable Unallocated , [place] Provider Primary Care Provi nnaette Shirlene Samayoa DO Unavailable SHIRLENE SAMAYOA Attending Unavailable Medications Current Medications Medication Drug [...] in a 24 hour period levothyroxine sodium 0.1 mg oral tablet (11 sources) l-Thyroxine Start: 06-21-2024 take 1 tablet by mouth once daily levothyroxine (Synthroid, Levoxyl) 100 MCG tablet Take 100 mcg by mouth Daily 06/21/2024 Active Start: 02-15-2023 End: 07-02-2024 take 1 tablet by mouth once daily Levothyroxine (Synthroid) 75 mcg tablet Active 75 MCG PO Daily February 15, 2023 12:00am Completed/Discontinued Medications Medication Drug Class(es) Dates Sig (Normalized) Sig (Original) MV-Min-Fe Fum-FA-DHA ( 1 PO) (3 sources) End: 07-02-2024 MV-Min-Fe Fum-FA-DHA ( 1 PO) 07/02/2024 Discontinued MV-Min- Fe Fum-FA-DHA ( 1 PO) Active Problems Active Problems Problem Classification Problem Date [...] first , second trimester] Onset: 3 Episodic Other screening for suspected conditions (not mental disorders or infectious disease) (2 sources) Cancer cervix screening status; Translations: [Encounter for screening for malignant neoplasm of cervix] 06-30-2024 Episodic Phlebitis; thrombophlebitis and thromboembolism (6 sources) [...] for screening for diabetes mellitus] Onset: 3 Unclassified (3 sources) OB Reminders Onset: 3 01-31-2023 Past or Other Problems Problem Classification Problem [...] 04-29-2023 Basophils (Bld) [#/Vol] 0.1 10*3/uL 0.0-0.2 [facility] Basophils/100 WBC Auto (Bld) Ordered By: RODGER JACOBSEN on 04-29-2023 Basophils/100 WBC (Bld) 0.7 % . [facility] Complete Blood Count Auto Di ffon 04-29-2023 Basophils (Bld) [#/Vol] 0.1 10*3/uL Normal 0.0-0.2 [facility] Comment on above: Order Comment: Pleas e draw per Lori in BB. MLG Result Comment: PERF ORMED BY: [facility] [address] [place] [address] PATHOLOGIST DEPUTY OF COUNTER INTELLIGENCE LIZBET العلي M.D. Performed By: #### C BC ####[address] Basophils/100 WBC (Bld) 0.7 % Normal . [facility] Comment on above: Order Comment: Pleas e draw per Lori in BB. MLG Performed By: #### C BC ####[address] Eosinophils (Bld) [#/Vol] 0.2 10*3/uL Normal 0.0-0.45 [facility] Comment on above: Order Comment: Pleas e draw per Lori in BB. MLG Performed By: #### C BC ####[address] Eosinophils/100 WBC (Bld) 1.8 % Normal . [facility] Comment on above: Order Comment: Pleas e draw per Lori in BB. MLG Performed By: #### C BC ####[address] Erythrocyte distribution width (RBC) [Ratio] 12.9 % Normal 11.9-15.3 [facility] Comment on above: Order Comment: Pleas e draw per Lori in BB. MLG Performed By: #### C BC ####[address] Hematocrit (Bld) [Volume fraction] 21.4 % Significant change down 34.0-46.4 [facility] Comment on above: Order Comment: Pleas e draw per Lori in BB. MLG Performed By: #### C BC ####[address] Hemoglobin (Bld) [Mass/Vol] 7.3 g/dL Low 11.8-15.4 [facility] Comment on above: Order Comment: Pleas e draw per Lori in BB. MLG Performed By: #### C BC ####[address] Lymphocytes (Bld) [#/Vol] 2.2 10*3/uL Normal 1.00-4.8 [facility] Comment on above: Order Comment: Pleas e draw per Lori in BB. MLG Performed By: #### C BC ####[address] Lymphocytes/100 WBC (Bld) 24.0 % Normal . [facility] Comment on above: Order Comment: Pleas e draw per Lori in BB. MLG Performed By: #### C BC ####[address] MCH (RBC) [Entitic mass] 29.5 pg Normal 24.7-34.3 [facility] Comment on above: Order Comment: Pleas e draw per Lori in BB. MLG Performed By: #### C BC ####[address] MCV (RBC) [Entitic vol] 86.8 fL Normal 80-100 [facility] Comment on above: Order Comment: Pleas e draw per Lori in BB. MLG Performed By: #### C BC ####[address] Mean Corpuscular HGB Conc 34.0 g/dL Normal 32.0-35.0 [facility] Comment on above: Order Comment: Pleas e draw per Lori in BB. MLG Performed By: #### C BC ####[address] Monocytes (Bld) [#/Vol] 0.7 10*3/uL Normal 0.0-0.8 [facility] Comment on above: Order Comment: Pleas e draw per Lori in BB. MLG Performed By: #### C BC ####[address] [facility] Monocytes/100 WBC (Bld) 7.2 % Normal . [facility] Comment on above: Order Comment: Pleas e draw per Lori in BB. MLG Performed By: #### C BC ####[place] [id number] [facility] Neutrophils (Bld) [#/Vol] 6.0 10*3/uL Normal 1.8-7.7 [facility] Comment on above: Order Comment: Pleas e draw per Lori in BB. MLG Performed By: #### C BC ####[place] [id number] [facility] Neutrophils/100 WBC (Bld) 66.3 % Normal . [facility] Comment on above: Order Comment: Pleas e draw per Lori in BB. MLG Performed By: #### C BC ####[place] [id number] [facility] NRBC% 0.2 /100{WBC} Normal 0-0.5 [facility] Comment on above: Order Comment: Pleas e draw per Lori in BB. MLG Performed By: #### C BC ####[place] [id number] [facility] Platelet mean volume (Bld) [Entitic vol] 9.6 fL Normal 6.3-10.7 [facility] Comment on above: Order Comment: Pleas e draw per Lori in BB. MLG Performed By: #### C BC ####[place] [id number] [facility] Platelets (Bld) [#/Vol] 145 10*3/uL Significant change down 150-450 [facility] Comment on above: Order Comment: Pleas e draw per Lori in BB. MLG Performed By: #### C BC ####[place] [id number] [facility] RBC (Bld) [#/Vol] 2.47 10*6/uL Low 3.60-5.00 [facility] Comment on above: Order Comment: Pleas e draw per Lori in BB. MLG Performed By: #### C BC ####[facility] [id number] [place] [id number] [facility] WBC (Bld) [#/Vol] 9.1 10*3/uL Normal 3.8-11.6 [facility] Comment on above: Order Comment: Pleas e draw per Lori in BB. MLG Performed By: #### C BC ####[facility] [id number] [place] [id number] [facility] Eosinophils Auto (Bld) [#/Vo l]Ordered By: RODGER JACOBSEN on 04-29-2023 Eosinophils (Bld) [#/Vol] 0.2 10*3/uL 0.0-0.45 [facility] Eosinophils/100 WBC Auto (Bl d)Ordered By: RODGER JACOBSEN on 04-29-2023 Eosinophils/100 WBC (Bld) 1.8 % . [facility] Erythrocyte distribution wid th Auto (RBC) [Ratio]Ordered By: RODGER JACOBSNE on 04-29-2023 Erythrocyte distribution width (RBC) [Ratio] 12.9 % 11.9-15.3 [facility] Hematocrit Auto (Bld) [Volum e fraction]Ordered By: RODGER JACOBSEN on 04-29-2023 Hematocrit (Bld) [Volume fraction] 21.4 % 34.0-46.4 [facility] Comment on above: Delta: 30.9 on 04/27-2099 Hemoglobin [Mass/volume] in BloodOrdered By: RODGER JACOBSEN on 04-29-2023 Hemoglobin (Bld) [Mass/Vol] 7.3 g/dL 11.8-15.4 [facility] Leukocytes [#/volume] correc arie for nucleated erythrocytes in Blood by Automated counOrdered By: RODGER JACOBSEN on 04-29-2023 WBC corrected for nucl RBC Auto (Bld) [#/Vol] 9.1 10*3/uL 3.8-11.6 [facility] Lymphocytes Auto (Bld) [#/Vo l]Ordered By: RODGER JACOBSEN on 04-29-2023 Lymphocytes (Bld) [#/Vol] 2.2 10*3/uL 1.00-4.8 [facility] Lymphocytes/100 WBC Auto (Bl d)Ordered By: RODGER JACOBSEN on 04-29-2023 Lymphocytes/100 WBC (Bld) 24.0 % . [facility] MCH Auto (RBC) [Entitic mass ]Ordered By: RODGER JACOBSEN on 04-29-2023 MCH (RBC) [Entitic mass] 29.5 pg 24.7-34.3 [facility] MCHC Auto (RBC) [Mass/Vol]Or dered By: RODGER JACOBSEN on 04-29-2023 MCHC (RBC) [Mass/Vol] 34.0 g/dL 32.0-35.0 [facility] MCV Auto (RBC) [Entitic vol] Ordered By: RODGER JACOBSEN on 04-29-2023 MCV (RBC) [Entitic vol] 86.8 fL 80-100 [facility] Monocytes Auto (Bld) [#/Vol] Ordered By: RODGER JACOBSEN on 04-29-2023 Monocytes (Bld) [#/Vol] 0.7 10*3/uL 0.0-0.8 [facility] Monocytes/100 WBC Auto (Bld) Ordered By: RODGER JACOBSEN on 04-29-2023 Monocytes/100 WBC (Bld) 7.2 % . [facility] Neutrophils Auto (Bld) [#/Vo l]Ordered By: RODGER JACOBSEN on 04-29-2023 Neutrophils (Bld) [#/Vol] 6.0 10*3/uL 1.8-7.7 [facility] Neutrophils/100 WBC Auto (Bl d)Ordered By: RODGER JACOBSEN on 04-29-2023 Neutrophils/100 WBC (Bld) 66.3 % . [facility] Nucleated erythrocytes [Pres ence] in Blood by Automated countOrdered By: RODGER JACOBSEN on 04-29-2023 Nucleated RBC Auto Ql (Bld) 0.2 /100{WBC} 0-0.5 [facility] Platelet mean volume Auto (B ld) [Entitic vol]Ordered By: RODGER JACOBSEN on 04-29-2023 Platelet mean volume (Bld) [Entitic vol] 9.6 fL 6.3-10.7 [facility] Platelets Auto (Bld) [#/Vol] Ordered By: RODGER JACOBSEN on 04-29-2023 Platelets (Bld) [#/Vol] 145 10*3/uL 150-450 [facility] Comment on above: Delta: 207 on -2099 RBC Auto (Bld) [#/Vol]Ordere d By: RODGER JACOBSEN on 04-29-2023 RBC (Bld) [#/Vol] 2.47 10*6/uL 3.60-5.00 [facility] WBC Auto (Bld) [#/Vol]Ordere d By: RODGER JACOBSEN on 04-29-2023 WBC (Bld) [#/Vol] 9.1 10*3/uL 3.8-11.6 [facility] Laboratory - Chemistry and C hemistry - challengeOrdered By: Shirlene Samayoa on 04-28-2023 CO2 [Moles/Vol] 18.6 mmol/L 24.0-29.0 [facility] HCO3 (Bld) [Moles/Vol] 17.7 mmol/L 23.0-29.0 [facility] No Panel InformationOrdered By: Shirlene Samayoa on 04-28-2023 Blood Gas Critical Value See comment [facility] Comment on above: Critical Value carpio d on: 04/28/2023 at 08:34 Blood Gas Sample Site Umbilical cord [facility] FiO2 21 % [facility] Venous Blood Base Excess -6.0 mmol/L -3.0-3.0 [facility] Venous Blood Oxygen Content 8.3 mmol/L 6.6-9.7 [facility] Venous Blood Oxygen Saturation 89.0 % 73.0-76.0 [facility] Venous Blood Partial Pressure CO2 30.3 mm[Hg] 38.0-50.0 [facility] Venous Blood Partial Pressure O2 45.8 mm[Hg] 35.0-45.0 [facility] Venous Blood pH 7.38 7.32-7.43 [facility] RFX RhoGAM Screenon RFX RhoGAM Screen Negative [facility] Comment on above: Order Comment: Pleas e draw per Lori in BB. MLG RFX RhoGAM Vials Indicatedon 04-28-2023 RFX RhoGAM Vials Indicated 1 Dose [facility] Comment on above: Result Comment: 1 vi al of RhoGAM is equivalent to 300 mcg. 1 vial will suppress alloimmunization by 15 mL of red cells or 30 mL of whole blood. RHOGAM DOSEon 04-28-2023 RHOGAM DOSE Post [facility] Comment on above: Result Comment: PERF ORMED BY: [facility] [address] [place] [address] PATHOLOGIST DEPUTY OF COUNTER INTELLIGENCE LIZBET العلي M.D. Rhogam Workupon 04-28-2023 Rhogam Candidate Yes [facility] Comment on above: Order Comment: Pleas e draw per Lori in BB. MLG ABO and Rh group Nom (Bld) Blood group A Rh(D) negative [facility] Comment on above: Order Comment: Pleas e draw per Lori in BB. MLG Venous Blood Gason CO2 [Moles/Vol] 18.6 mmol/L Low 24.0-29.0 [facility] Comment on above: Performed By: #### V BG #### Point of Care testing , HCO3 (Bld) [Moles/Vol] 17.7 mmol/L Low 23.0-29.0 [facility] Comment on above: Performed By: #### V BG #### Point of Care testing , Respiratory Critical [facility] Comment on above: Result Comment: Crit ical Value called on: 04/28/2023 at 08:34 PERFORMED BY: [facility] [address] [place] [address] PATHOLOGIST DEPUTY OF COUNTER INTELLIGENCE LIZBET العلي M.D. Performed By: #### V BG #### Point of Care testing , VBG Base Excess -6.0 mmol/L Low -3.0-3.0 [facility] Comment on above: Performed By: #### V BG #### Point of Care testing , VBG Draw Site Umbilical Cord Normal [facility] Comment on above: Performed By: #### V BG #### Point of Care testing , VBG Frac Inspired O2 21 % Normal [facility] Comment on above: Performed By: #### V BG #### Point of Care testing , VBG O2 Content 8.3 mmol/L Normal 6.6-9.7 [facility] Comment on above: Performed By: #### V BG #### Point of Care testing , VBG Oxygen Saturation 89.0 % Off scale high 73.0-76.0 [facility] Comment on above: Performed By: #### V BG #### Point of Care testing , VBG PCO2 30.3 mm[Hg] Low 38.0-50.0 [facility] Comment on above: Performed By: #### V BG #### Point of Care testing , VBG PH Venous PH 7.38 Normal 7.32-7.43 [facility] Comment on above: Performed By: #### V BG #### Point of Care testing , VBG PO2 45.8 mm[Hg] High 35.0-45.0 [facility] Comment on above: Performed By: #### V BG #### Point of Care testing , ABO/RH Typeon 04-27-2023 ABO and Rh group Nom (Bld) Blood group A Rh(D) negative Normal [facility] Comment on above: Result Comment: PERF ORMED BY: [address] [address] PATHOLOGIST DEPUTY OF COUNTER INTELLIGENCE LIZBET العلي M.D. Amnisure(Pamg-1)on 3 Amnisure Positive High Negative [facility] Comment on above: Order Comment: Pleas e draw per Lori in BB. MLG Result Comment: PERF ORMED BY: [facility] [address] [place] [address] PATHOLOGIST DEPUTY OF COUNTER INTELLIGENCE LIZBET العلي M.D. Performed By: #### A DDONUAPLUS, AMNISURE-, OBUDS, CUU ####[facility] [id number] [place] [address] [facility] Amphetamine Screen Ql (U)Ord ered By: RODGER JACOBSEN on 04-27-2023 Amphetamines Ql (U) Negative Negative [facility] Automated epithelial cells c ount in urine sediment (number/area)Ordered By: RODGER JACOBSEN on 04-27-2023 Epithelial cells Auto (Urine sed) [#/Area] 10-19 [HPF] 0-2 [facility] Automated erythrocytes count in urine sediment (number/area)Ordered By: RODGER JACOBSEN on 04-27-2023 RBC Auto (Urine sed) [#/Area] 5-9 [HPF] 0-4 [facility] Automated leukocytes count i n urine sediment (number/area)Ordered By: RODGER JACOBSEN on 04-27-2023 WBC Auto (Urine sed) [#/Area] 10-19 [HPF] 0-4 [facility] Automated urine hyaline cast s count (number/volume)Ordered By: RODGER JACOBSEN on 04-27-2023 Hyaline casts Auto (U) [#/Vol] 10-19 [LPF] 0-1 [facility] Barbiturates [Presence] in U rine by Screen methodOrdered By: RODGER JACOBSEN on 04-27-2023 Barbiturates Screen Ql (U) Negative Negative [facility] Benzodiazepines Screen Ql (U )Ordered By: RODGER JACOBSEN on 04-27-2023 Benzodiazepines Ql (U) Negative Negative [facility] Benzoylecgonine [Presence] i n Urine by Screen methodOrdered By: RODGER JACOBSEN on 04-27-2023 Benzoylecgonine Screen Ql (U) Negative Negative [facility] Bilirubin Test strip Ql (U)O rdered By: RODGER JACOBSEN on 04-27-2023 Bilirubin Ql (U) Negative Negative [facility] Color Auto (U)Ordered By: DIAMOND JACOBSEN on 04-27-2023 Color (U) Yellow Yellow [facility] Complete Blood Count Auto Di ffon 04-27-2023 Basophils (Bld) [#/Vol] 0.0 10*3/uL Normal 0.0-0.2 [facility] Comment on above: Result Comment: PERF ORMED BY: [place] [address] PATHOLOGIST DEPUTY OF COUNTER INTELLIGENCE LIZBET العلي M.D. Performed By: #### R VT W RFX #### [facility] , #### CBC #### [address] Basophils/100 WBC (Bld) 0.5 % Normal . [facility] Comment on above: Performed By: #### R VT W RFX #### [facility] , #### CBC #### [facility] [address] [place] [address] Eosinophils (Bld) [#/Vol] 0.1 10*3/uL Normal 0.0-0.45 [facility] Comment on above: Performed By: #### R VT W RFX #### [facility] , #### CBC #### [facility] [address] [place] [address] Eosinophils/100 WBC (Bld) 1.6 % Normal . [facility] Comment on above: Performed By: #### R VT W RFX #### [facility] , #### CBC #### [facility] [address] [place] [address] Erythrocyte distribution width (RBC) [Ratio] 12.8 % Normal 11.9-15.3 [facility] Comment on above: Performed By: #### R VT W RFX #### [facility] , #### CBC #### [facility] [address] [place] [address] Hematocrit (Bld) [Volume fraction] 30.9 % Low 34.0-46.4 [facility] Comment on above: Performed By: #### R VT W RFX #### [facility] , #### CBC #### [facility] [address] [place] [address] [place] Hemoglobin (Bld) [Mass/Vol] 10.6 g/dL Low 11.8-15.4 [facility] Comment on above: Performed By: #### R VT W RFX #### [facility] , #### CBC #### [address] Lymphocytes (Bld) [#/Vol] 2.0 10*3/uL Normal 1.00-4.8 [facility] Comment on above: Performed By: #### R VT W RFX #### [facility] , #### CBC #### [address] Lymphocytes/100 WBC (Bld) 22.1 % Normal . [facility] Comment on above: Performed By: #### R VT W RFX #### [facility] , #### CBC #### [address] MCH (RBC) [Entitic mass] 29.3 pg Normal 24.7-34.3 [facility] Comment on above: Performed By: #### R VT W RFX #### [facility] , #### CBC #### [address] MCV (RBC) [Entitic vol] 85.9 fL Normal 80-100 [facility] Comment on above: Performed By: #### R VT W RFX #### [facility] , #### CBC #### [address] Mean Corpuscular HGB Conc 34.1 g/dL Normal 32.0-35.0 [facility] Comment on above: Performed By: #### R VT W RFX #### [facility] , #### CBC #### [facility] [address] [place] [address] [place] Monocytes (Bld) [#/Vol] 0.9 10*3/uL High 0.0-0.8 [facility] Comment on above: Performed By: #### R VT W RFX #### [facility] , #### CBC #### [facility] [address] [place] [address] [place] Monocytes/100 WBC (Bld) 10.4 % Normal . [facility] Comment on above: Performed By: #### R VT W RFX #### [facility] , #### CBC #### [facility] [address] [place] [address] [place] Neutrophils (Bld) [#/Vol] 5.9 10*3/uL Normal 1.8-7.7 [facility] Comment on above: Performed By: #### R VT W RFX #### [facility] , #### CBC #### [facility] [address] [place] [address] [place] Neutrophils/100 WBC (Bld) 65.4 % Normal . [facility] Comment on above: Performed By: #### R VT W RFX #### [facility] , #### CBC #### [facility] [address] [place] [address] [place] NRBC% 0.1 /100{WBC} Normal 0-0.5 [facility] Comment on above: Performed By: #### R VT W RFX #### [facility] , #### CBC #### [facility] [address] [place] [address] [place] Platelet mean volume (Bld) [Entitic vol] 9.5 fL Normal 6.3-10.7 [facility] Comment on above: Performed By: #### R VT W RFX #### [facility] , #### CBC #### [facility] [address] [place] [address] [place] Platelets (Bld) [#/Vol] 207 10*3/uL Normal 150-450 [facility] Comment on above: Performed By: #### R VT W RFX #### [facility] , #### CBC #### [facility] [address] RBC (Bld) [#/Vol] 3.60 10*6/uL Normal 3.60-5.00 [facility] Comment on above: Performed By: #### R VT W RFX #### [facility] , #### CBC #### [facility] [address] WBC (Bld) [#/Vol] 9.0 10*3/uL Normal 3.8-11.6 [facility] Comment on above: Performed By: #### R VT W RFX #### [facility] , #### CBC #### [facility] [address] Dipstick and Microscopicon 0 04-27-2023 Appearance (U) Turbid Critically abnormal Clear [facility] Comment on above: Order Comment: Pleas e draw per Lori in BB. MLG Performed By: #### A DDONUAPLUS, AMNISURE-, OBUDS, CUU ####[address] Bacteria,Urine 3+ High None Seen [facility] Comment on above: Order Comment: Pleas e draw per Lori in BB. MLG Performed By: #### A DDONUAPLUS, AMNISURE-, OBUDS, CUU ####[address] Bilirubin,Urine Negative Normal Negative [facility] Comment on above: Order Comment: Pleas e draw per Lori in BB. MLG Performed By: #### A DDONUAPLUS, AMNISURE-, OBUDS, CUU ####[address] Color (U) Yellow Normal Yellow [facility] Comment on above: Order Comment: Pleas e draw per Lori in BB. MLG Performed By: #### A DDONUAPLUS, AMNISURE-, OBUDS, CUU ####[place] [id number] [facility] Glucose Ql (U) Normal Normal Normal [facility] Comment on above: Order Comment: Pleas e draw per Lori in BB. MLG Performed By: #### A DDONUAPLUS, AMNISURE-, OBUDS, CUU ####[address] [facility] Hyaline Casts,Urine 10-19 High 0-1 [facility] Comment on above: Order Comment: Pleas e draw per Lori in BB. MLG Result Comment: PERF ORMED BY: [facility] [address] [place] [address] PATHOLOGIST DEPUTY OF COUNTER INTELLIGENCE LIZBET العلي M.D. Performed By: #### A DDONUAPLUS, AMNISURE-, OBUDS, CUU ####[place] [id number] [facility] Ketones Ql (U) Negative Normal Negative [facility] Comment on above: Order Comment: Pleas e draw per Lori in BB. MLG Performed By: #### A DDONUAPLUS, AMNISURE-, OBUDS, CUU ####[place] [id number] [facility] Leukocyte esterase Test strip Ql (U) 2+ High Negative [facility] Comment on above: Order Comment: Pleas e draw per Lori in BB. MLG Performed By: #### A DDONUAPLUS, AMNISURE-, OBUDS, CUU ####[place] [id number] [facility] Nitrite,Urine Negative Normal Negative [facility] Comment on above: Order Comment: Pleas e draw per Lori in BB. MLG Performed By: #### A DDONUAPLUS, AMNISURE-, OBUDS, CUU ####[address] [facility] Occult Blood,Urine 1+ High Negative [facility] Comment on above: Order Comment: Pleas e draw per Lori in BB. MLG Result Comment: PERF ORMED BY: [facility] [address] [place] [id number] PATHOLOGIST DEPUTY OF COUNTER INTELLIGENCE LIZBET العلي M.D. Performed By: #### A DDONUAPLUS, AMNISURE-, OBUDS, CUU ####[place] [id number] [facility] pH (U) 6.0 [pH] Normal 5.0-9.0 [facility] Comment on above: Order Comment: Pleas e draw per Lori in BB. MLG Performed By: #### A DDONUAPLUS, AMNISURE-, OBUDS, CUU ####[address] Protein (U) [Mass/Vol] 30 mg/dL High Negative [facility] Comment on above: Order Comment: Pleas e draw per Lori in BB. MLG Performed By: #### A DDONUAPLUS, AMNISURE-, OBUDS, CUU ####[place] [phone] [facility] RBC,Urine 5-9 High 0-4 [facility] Comment on above: Order Comment: Pleas e draw per Lori in BB. MLG Performed By: #### A DDONUAPLUS, AMNISURE-, OBUDS, CUU ####[place] [phone] [facility] Specificy [place],Urine 1.020 Normal 1.001-1.030 [facility] Comment on above: Order Comment: Pleas e draw per Lori in BB. MLG Performed By: #### A DDONUAPLUS, AMNISURE-, OBUDS, CUU ####[place] [phone] [facility] Squamous Epithelial Cell,Urine 10-19 High 0-2 [facility] Comment on above: Order Comment: Pleas e draw per Lori in BB. MLG Performed By: #### A DDONUAPLUS, AMNISURE-, OBUDS, CUU ####[address] [facility] Urobilinogen,Urine Normal Normal Normal [facility] Comment on above: Order Comment: Pleas e draw per Lori in BB. MLG Performed By: #### A DDONUAPLUS, AMNISURE-, OBUDS, CUU ####[place] [phone] [facility] WBC,Urine 10-19 High 0-4 [facility] Comment on above: Order Comment: Pleas e draw per Lori in BB. MLG Performed By: #### A DDONUAPLUS, AMNISURE-, OBUDS, CUU ####[address] Ketones Auto test strip (U) [Mass/Vol]Ordered By: RODGER JACOBSEN on 04-27-2023 Ketones (U) [Mass/Vol] Negative Negative [facility] Nitrite Test strip Ql (U)Ord ered By: RODGER JACOBSEN on 04-27-2023 Nitrite Ql (U) Negative Negative [facility] No Panel InformationOrdered By: RODGER JACOBSEN on 04-27-2023 Membranes Rupture (PAMG-1) Positive Negative [facility] OB Urine Drug Screen (NO THC )on 04-27-2023 Amphetamine Screen,Urine Negative Normal Negative [facility] Comment on above: Performed By: #### A DDONUAPLUS, AMNISURE-, OBUDS, CUU ####[address] [facility] Barbiturate Screen,Urine Negative Normal Negative [facility] Comment on above: Performed By: #### A DDONUAPLUS, AMNISURE-, OBUDS, CUU ####[address] [facility] Benzodiazepines Screen,Urine Negative Normal Negative [facility] Comment on above: Performed By: #### A DDONUAPLUS, AMNISURE-, OBUDS, CUU ####[facility] [id number] [place] [address] [place] Cocaine Screen,Urine Negative Normal Negative [facility] Comment on above: Performed By: #### A DDONUAPLUS, AMNISURE-, OBUDS, CUU ####[facility] [id number] [place] [address] [facility] Opiate Screen,Urine Negative Normal Negative [facility] Comment on above: Performed By: #### A DDONUAPLUS, AMNISURE-, OBUDS, CUU ####[facility] [id number] [place] [address] [facility] Phencyclidine Screen, Urine Negative Normal Negative [facility] Comment on above: Result Comment: Thes e are unconfirmed results and should not be used for legal purposes. Drug Cut-Off Concentration: AMPH 1000 ng/mL ALEX 200 ng/mL BAILEE 200 ng/mL COCM 300 ng/mL OP 300 ng/mL PCP 25 ng/mL PERFORMED BY: [facility] [address] [place] [address] PATHOLOGIST DEPUTY OF COUNTER INTELLIGENCE LIZBET العلي M.D. Performed By: #### A DDONUAPLUS, AMNISURE-, OBUDS, CUU ####[facility] [id number] [place] [address] [facility] Opiates [Presence] in Urine by Screen methodOrdered By: RODGER JACOBSEN on 04-27-2023 Opiates Screen Ql (U) Negative Negative [facility] Phencyclidine Screen Ql (U)O rdered By: RODGER JACOBSEN on 04-27-2023 Phencyclidine Ql (U) Negative Negative [facility] Comment on above: These are unconfirme d results and should not be used for legal purposes. Drug Cut-Off Concentration: AMPH 1000 ng/mL ALEX 200 ng/mL BAILEE 200 ng/mL COCM 300 ng/mL OP 300 ng/mL PCP 25 ng/mL Protein Auto test strip (U) [Mass/Vol]Ordered By: RODGER JACOBSEN on 04-27-2023 Protein (U) [Mass/Vol] 30 mg/dL Negative [facility] RPR w/rfx to Quant TP Abson 04-27-2023 RPR, Rfx Quant RPR Non-Reactive Normal Non Reactive [facility] Comment on above: Result Comment: Perf ormed at: CB - [facility] [place] [id number] [place] [id number] [employer] Farmworker: Alan Reis PhD, Phone: [phone] PERFORMED BY: [place] [address] PATHOLOGIST DEPUTY OF COUNTER INTELLIGENCE LIZBET العلي M.D. Performed By: #### R VT W RFX #### [facility] , #### CBC #### [address] Reagin Ab [Presence] in Seru m by RPROrdered By: RODGER JACOBSEN on 04-27-2023 Reagin Ab RPR Ql (S) Non-Reactive Non Reactive [facility] Comment on above: Performed at: [facility] [place] [address]Lab Director: Alan Reis PhD, Phone: [phone] Specific gravity Auto test s trip (U) [Rel density]Ordered By: RODGER JACOBSEN on 04-27-2023 Specific gravity (U) [Rel density] 1.020 1.001-1.030 [facility] Urine Cultureon 04-27-2023 Bacteria identified Cx Nom (U) ORGANISM: Escherichia coli (O:ESCCOL) Moody Count >100,000 Aerobic ALONDRA Charge (NMIC56) -- [...] RESISTANT TO ALL B-LACTAM DRUGS. PERFORMED BY: [facility] [address] [place] [address] PATHOLOGIST DEPUTY OF COUNTER INTELLIGENCE LZIBET العلي M.D. [facility] Comment on above: Performed By: #### A DDONUAPLUS, AMNISURE-, OBUDS, CUU ####[facility] [id number] [place] [id number] [facility] Urine bacteria detection by automated methodOrdered By: RODGER JACOBSEN on 04-27-2023 Bacteria Auto Ql (U) 3+ None Seen [facility] Urine clarity by refractomet ry automatedOrdered By: RODGER JACOBSEN on 04-27-2023 Clarity Refractometry automated (U) Turbid Clear [facility] Urine culture routineOrdered By: RODGER JACOBSEN on 04-27-2023 Bacteria identified Cx Nom (U) Escherichia coli [facility] Urine glucose measurement by automated test strip (mass/volume)Ordered By: RODGER JACOBSEN on 04-27-2023 Glucose Auto test strip (U) [Mass/Vol] Normal mg/dL Normal [facility] Urine hemoglobin detection b y automated test stripOrdered By: RODGER JACOBSEN on 04-27-2023 Hemoglobin Auto test strip Ql (U) 1+ Negative [facility] Urine leukocyte esterase det ection by automated test stripOrdered By: RODGER JACOBSEN on 04-27-2023 Leukocyte esterase Auto test strip Ql (U) 2+ Negative [facility] Urobilinogen Auto test strip (U) [Mass/Vol]Ordered By: RODGER JACOSBEN on 04-27-2023 Urobilinogen (U) [Mass/Vol] Normal mg/dL Normal [facility] pH Auto test strip (U)Ordere d By: RODGER JACOBSEN on 04-27-2023 pH (U) 6.0 [pH] 5.0-9.0 [facility] Group B Streptococcus cultur eOrdered By: Shirlene Samayoa on 03-28-2023 S. agalactiae Org specific cx Ql (Unsp spec) [facility] Strep B Cultureon 03-28-2023 Strep B Culture Strep B Only Cult No Group B Beta Streptococcus Isolated 3 Days PERFORMED BY: [place] [address] PATHOLOGIST DEPUTY OF COUNTER INTELLIGENCE LIZBET العلي M.D. Normal [facility] Comment on above: Performed By: #### C USTB ####[facility] [address] [place] [id number] [place] Glucose [Mass/volume] in Ser um or PlasmaOrdered By: Shirlene Samayoa on 01-31-2023 Glucose [Mass/Vol] 113 mg/dL 60-140 [facility] Glucose,1 Hour PP 50gm Doseo n 01-31-2023 Glucose [Mass/Vol] 113 mg/dL Normal 60-140 [facility] Comment on above: Result Comment: PERF ORMED BY: [address] [place] [address] PATHOLOGIST DEPUTY OF COUNTER INTELLIGENCE LIZBET العلي M.D. Performed By: #### G [id number] #### [facility] [address] [place] [id number] [place] Hematocrit Auto (Bld) [Volum e fraction]Ordered By: Shirlene Samayoa on 01-31-2023 Hematocrit (Bld) [Volume fraction] 32.5 % 34.0-46.4 [facility] Hemoglobin [Mass/volume] in BloodOrdered By: Shirlene Samayoa on 01-31-2023 Hemoglobin (Bld) [Mass/Vol] 11.4 g/dL 11.8-15.4 [facility] Hemoglobin and Hematocriton 01-31-2023 Hematocrit (Bld) [Volume fraction] 32.5 % Low 34.0-46.4 [facility] Comment on above: Result Comment: PERF ORMED BY: [place] [address] PATHOLOGIST DEPUTY OF COUNTER INTELLIGENCE LIZBET العلي M.D. Performed By: #### H H #### [address] Hemoglobin (Bld) [Mass/Vol] 11.4 g/dL Low 11.8-15.4 [facility] Comment on above: Performed By: #### H H #### [address] RFX RhoGAM Vials Indicatedon 01-31-2023 RFX RhoGAM Vials Indicated 1 Dose Normal [facility] Comment on above: Result Comment: 1 vi al of RhoGAM is equivalent to 300 mcg. 1 vial will suppress alloimmunization by 15 mL of red cells or 30 mL of whole blood. RHOGAM DOSEon 01-31-2023 RHOGAM DOSE Normal [facility] Comment on above: Result Comment: PERF ORMED BY: [place] [address] PATHOLOGIST DEPUTY OF COUNTER INTELLIGENCE LIZBET العلي M.D. Rhogam Workupon 01-31-2023 Rhogam Candidate Yes Normal [facility] Comment on above: Result Comment: PERF ORMED BY: [place] [address] PATHOLOGIST DEPUTY OF COUNTER INTELLIGENCE LIZBET العلي M.D. ABO and Rh group Nom (Bld) Blood group A Rh(D) negative Normal [facility] FREE THYROXINE INDEX T7on FTI 2.97 Normal 1.30-4.50 [facility] Comment on above: Performed By: #### T SH, T7 #### [facility] [address] [place] [address] Dr. Sayda Samuels T3U 33.0 % Normal 30.0-39.0 [facility] Comment on above: Performed By: #### T SH, T7 #### [facility] [address] [place] [address] Dr. Sayda Samuels T4 [Mass/Vol] 9.00 ug/dL Normal 4.80-13.90 [facility] Comment on above: Performed By: #### T SH, T7 #### [facility] [address] [place] [address] Dr. Sayda Samuels TSHon 07-18-2022 TSH 2.546 uIU/mL Normal 0.358-3.[address] [facility] Comment on above: Performed By: #### T ROBBIE, T7 #### [facility] [address] [place] [address] Dr. Sayda Samuels [facility] CBC AUTO DIFFon 03-29-2022 BASO # 0.1 103/ul Normal 0.0-0.1 [facility] Comment on above: Performed By: #### H FPFCBC #### [facility] [address] [place] [address] Dr. Sayda Samuels Basophils/100 WBC (Bld) 0.9 % Normal 0.2-2.0 [facility] Comment on above: Performed By: #### H FPFCBC #### [facility] [address] [place] [address] Dr. Sayda Samuels EO # 0.1 103/ul Normal 0.0-0.7 [facility] Comment on above: Performed By: #### H FPFCBC #### [facility] [address] [place] [address] Dr. Sayda Samuels Eosinophils/100 WBC (Bld) 0.7 % Critically low 0.9-7.0 [facility] Comment on above: Performed By: #### H FPFCBC #### [facility] [address] [place] [address] Dr. Sayda Samuels Erythrocyte distribution width (RBC) [Ratio] 12.9 % Normal 11.0-15.0 [facility] Comment on above: Performed By: #### H FPFCBC #### [facility] [address] [place] [address] [address] Sayda Samuels Hematocrit (Bld) [Volume fraction] 39.8 % Normal 36.0-48.0 [facility] Comment on above: Performed By: #### H FPFCBC #### [facility] [address] [place] [address] Dr. Sayda Samuels Hemoglobin (Bld) [Mass/Vol] 12.7 g/dL Normal 12.0-16.0 [facility] Comment on above: Performed By: #### H FPFCBC #### [facility] [address] [place] [address] Dr. Sayda Samuels IG # 0.01 10e3/ul Normal 0.00-0.03 [facility] Comment on above: Performed By: #### H FPFCBC #### [facility] [address] [place] [address] Dr. Sayda Samuels IG % 0.1 % Normal 0.0-0.5 [facility] Comment on above: Performed By: #### H FPFCBC #### [facility] [address] [place] [address] Dr. Sayda Samuels LYMPH # 1.5 103/ul Normal 1.2-3.8 [facility] Comment on above: Performed By: #### H FPFCBC #### [facility] [address] [place] [address] Dr. Sayda Samuels Lymphocytes/100 WBC (Bld) 22.8 % Normal 20.5-60.0 [facility] Comment on above: Performed By: #### H FPFCBC #### [facility] [address] [place] [address] Dr. Sayda Samuels MCH (RBC) [Entitic mass] 28.4 pg Normal 26.7-34.0 [facility] Comment on above: Performed By: #### H FPFCBC #### [facility] [address] [place] [address] Dr. Sayda Samuels MCHC (RBC) [Mass/Vol] 31.9 g/dL Normal 29.9-35.2 [facility] Comment on above: Performed By: #### H FPFCBC #### [facility] [address] [place] [address] Dr. Sayda Samuels MCV (RBC) [Entitic vol] 89.0 fL Normal 81.0-99.0 [facility] Comment on above: Performed By: #### H FPFCBC #### [facility] [address] [place] [address] Dr. Sayda Samuels MONO # 0.9 103/ul Critically high 0.3-0.8 [facility] Comment on above: Performed By: #### H FPFCBC #### [facility] [address] [place] [address] Dr. Sayda Samuels Monocytes/100 WBC (Bld) 13.0 % Critically high 1.7-12.0 [facility] Comment on above: Performed By: #### H FPFCBC #### [facility] [address] [place] [address] Dr. Sayda Samuels NEUT # 4.2 103/ul Normal 1.4-6.5 [facility] Comment on above: Performed By: #### H FPFCBC #### [facility] [address] [place] [address] Dr. Sayda Samuels Neutrophils/100 WBC (Bld) 62.5 % Normal 43.0-75.0 [facility] Comment on above: Performed By: #### H FPFCBC #### [facility] [address] [place] [address] Dr. Sayda Samuels Platelet mean volume (Bld) [Entitic vol] 11.4 fL Normal 9.5-13.5 [facility] Comment on above: Performed By: #### H FPFCBC #### [facility] [address] [place] [address] Dr. Sayda Samuels PLT 227 103/ul Normal 150-450 [facility] Comment on above: Performed By: #### H FPFCBC #### [facility] [address] [place] [address] Dr. Sayda Samuels RBC 4.47 106/ul Normal 4.20-5.40 [facility] Comment on above: Performed By: #### H FPFCBC #### [facility] [address] [place] [address] Dr. Sayda Samuels WBC 6.7 103/ul Normal 4.0-11.0 [facility] Comment on above: Performed By: #### H FPFCBC #### [facility] [address] [place] [address] Dr. Sayda Samuels [employer] PROFILEon 022 Albumin [Mass/Vol] 3.8 g/dL Normal 3.4-5.0 [facility] Comment on above: Performed By: #### H FPF #### [facility] [address] [place] [address] Dr. Sayda Samuels Albumin/Globulin [Mass ratio] 1.1 {ratio} Normal [facility] Comment on above: Performed By: #### H FPF #### [facility] [address] [place] [address] Dr. Sayda Samuels ALP [Catalytic activity/Vol] 48 U/L Normal 46-116 [facility] Comment on above: Performed By: #### H FPF #### [facility] [address] [place] [address] Dr. Sayda Samuels ALT [Catalytic activity/Vol] 16 U/L Normal 14-59 [facility] Comment on above: Performed By: #### H FPF #### [facility] [address] [place] [address] Dr. Sayda Samuels AST [Catalytic activity/Vol] 11 U/L Critically low 15-37 [facility] Comment on above: Performed By: #### H FPF #### [facility] [address] [place] [address] Dr. Sayda Samuels Bilirubin [Mass/Vol] 0.2 mg/dL Normal 0.2-1.0 [facility] Comment on above: Performed By: #### H FPF #### [facility] [address] [place] [address] Dr. Sayda Samuels Calcium [Mass/Vol] 8.8 mg/dL Normal 8.5-10.1 [facility] Comment on above: Performed By: #### H FPF #### [facility] [address] [place] [address] [address] Sayda Samuels Chloride [Moles/Vol] 106 mmol/L Normal 98-107 [facility] Comment on above: Performed By: #### H FPF #### [facility] [address] [place] [address] [address] Sayda Samuels CHOL-HDL RATIO NORM SEE BELOW Normal [facility] Comment on above: Result Comment: 3.3 - 4.4 LOW RISK 4.4 - 7.1 AVERAGE RISK 7.1 - 11.0 MODERATE RISK >11.0 HIGH RISK Performed By: #### H FPF #### [facility] [address] [place] [address] Dr. Sayda Samuels Cholesterol [Mass/Vol] 162 mg/dL Normal <=200 [facility] Comment on above: Performed By: #### H FPF #### [facility] [address] [place] [address] Dr. Sayda Samuels Cholesterol in HDL [Mass/Vol] 49 mg/dL Normal 40-60 [facility] Comment on above: Performed By: #### H FPF #### [facility] [address] [place] [address] Dr. Sayda Samuels Cholesterol in LDL [Mass/Vol] 103.0 mg/dL Normal [facility] Comment on above: Performed By: #### H FPF #### [facility] [address] [place] [address] [address] Sayda Samuels Cholesterol.total/Cho lesterol in HDL [Mass ratio] 3.3 {ratio} Normal [facility] Comment on above: Performed By: #### H FPF #### [facility] [address] [place] [address] [address] Sayda Samuels CO2 [Moles/Vol] 24.4 mmol/L Normal 21.0-32.[address] [facility] Comment on above: Performed By: #### H FPF #### [facility] [address] [place] [address] Dr. Sayda Samuels Creatinine [Mass/Vol] 0.79 mg/dL Normal 0.55-1.02 [facility] Comment on above: Performed By: #### H FPF #### [facility] [address] [place] [address] [address] Sayda Samuels Globulin (S) [Mass/Vol] 3.4 g/dL Normal [facility] Comment on above: Performed By: #### H FPF #### [facility] [address] [place] [address] [address] Sayda Samuels Glucose [Mass/Vol] 89 mg/dL Normal 74-106 [facility] Comment on above: Performed By: #### H FPF #### [facility] [address] [place] [address] [address] Sayda Samuels HDL NORMAL > or = 60 mg/dl - LO W CARDIOVASCULAR RISK <40 mg/dl - HIGH CARDIOVASCULAR RISK Normal [facility] Comment on above: Performed By: #### H FPF #### [facility] [address] [place] [address] [address] Sayda Samuels LDL CALC NORMAL SEE BELOW Normal [facility] Comment on above: Result Comment: <100 mg/dl OPTIMAL 100 - 129 mg/dl NEAR OR ABOVE OPTIMAL 130 - 159 mg/dl BORDERLINE HIGH 160 - 189 mg/dl HIGH >190 mg/dl VERY HIGH Performed By: #### H FPF #### [facility] [address] [place] [address] [address] Sayda Samuels Potassium [Moles/Vol] 4.0 mmol/L Normal 3.5-5.1 [facility] Comment on above: Performed By: #### H FPF #### [facility] [address] [place] [address] [address] Sayda Samuels Protein [Mass/Vol] 7.2 g/dL Normal 6.4-8.2 [facility] Comment on above: Performed By: #### H FPF #### [facility] [address] [place] [address] [address] Sadya Samuels Sodium [Moles/Vol] 141 mmol/L Normal 136-145 [facility] Comment on above: Performed By: #### H FPF #### [facility] [address] [place] [address] [address] Sayda Samuels Triglyceride [Mass/Vol] 50 mg/dL Normal <=150 [facility] Comment on above: Performed By: #### H FPF #### [facility] [address] [place] [address] [address] Sayda Samuels TSH 3.769 uIU/mL Critically high 0.358-3.740 [facility] Comment on above: Performed By: #### H FPF #### [facility] [address] [place] [address] [address] Sayda Samuels Urea nitrogen [Mass/Vol] 19.0 mg/dL Critically high 7.0-18.0 [facility] Comment on above: Performed By: #### H FPF #### [facility] [address] [place] [address] [address] Sayda Samuels Urea nitrogen/Creatinine [Mass ratio] 24.1 mg/mg Normal [facility] Comment on above: Performed By: #### H FPF #### [facility] [address] [place] [address] [address] Sayda Samuels VLDL CALC 10.0 mg/dL Normal [facility] Comment on above: Performed By: #### H FPF #### [facility] [address] [address] [address] Sayda Samuels HCG BETA SUBUNIT QUANTon HCG BETA SUBUNIT QUANT 0.7 mIU/mL Normal 0.0-5.0 [facility] Comment on above: Result Comment: Gest ational [...] OSMOL, EGFR1, ABODC, HCGB, TSH3, WKS, CIAT ####[facility] [employer] [place] [address] HCG BETA SUBUNIT QUANTon HCG BETA SUBUNIT QUANT 31.2 mIU/mL High 0.0-5.0 [facility] Comment on above: Result Comment: Gest ational [...] OSMOL, EGFR1, ABODC, HCGB, TSH3, WKS, CIAT ####[facility] [address] [place] [address] ABO/RH CAPTUREon 07-13-2018 ABO CAPTURE A Normal [facility] Comment on above: Performed By: #### C BCWD, BMP, HEPPA, LIPAS, MG, ETOHS, ANION, OSMOL, EGFR1, ABODC, HCGB, TSH3, WKS, CIAT ####[facility] [address] [place] [address] RH CAPTURE (2 D CLONES) Negative Normal [facility] Comment on above: Performed By: #### C BCWD, BMP, HEPPA, LIPAS, MG, ETOHS, ANION, OSMOL, EGFR1, ABODC, HCGB, TSH3, WKS, CIAT ####[facility] [employer] [place] [address] ANION GAPon 07-13-2018 Anion gap 3 molar conc 12.0 mmol/L Normal 8.0-16.0 [facility] Comment on above: Result Comment: ANIO N GAP = Sodium -(Chloride + CO2) Performed By: #### C BCWD, BMP, HEPPA, LIPAS, MG, ETOHS, ANION, OSMOL, EGFR1, ABODC, HCGB, TSH3, WKS, CIAT ####[address] [place] [address] BASIC METABOL PANELon 2017 Calcium mass conc 8.9 mg/dL Normal 8.5-10.5 [facility] Comment on above: Performed By: #### C BCWD, BMP, HEPPA, LIPAS, MG, ETOHS, ANION, OSMOL, EGFR1, ABODC, HCGB, TSH3, WKS, CIAT ####[address] [place] [address] Chloride molar conc 107 mmol/L Normal 98-111 [facility] Comment on above: Performed By: #### C BCWD, BMP, HEPPA, LIPAS, MG, ETOHS, ANION, OSMOL, EGFR1, ABODC, HCGB, TSH3, WKS, CIAT ####[address] [place] [address] CO2 molar conc 21 mmol/L Low 23-33 [facility] Comment on above: Performed By: #### C BCWD, BMP, HEPPA, LIPAS, MG, ETOHS, ANION, OSMOL, EGFR1, ABODC, HCGB, TSH3, WKS, CIAT ####[address] [place] [address] Creatinine mass conc 0.5 mg/dL Normal 0.4-1.2 [facility] Comment on above: Performed By: #### C BCWD, BMP, HEPPA, LIPAS, MG, ETOHS, ANION, OSMOL, EGFR1, ABODC, HCGB, TSH3, WKS, CIAT ####[address] [place] [id number] Glucose mass conc 104 mg/dL Normal 70-108 [facility] Comment on above: Performed By: #### C BCWD, BMP, HEPPA, LIPAS, MG, ETOHS, ANION, OSMOL, EGFR1, ABODC, HCGB, TSH3, WKS, CIAT ####[address] [place] [address] Potassium molar conc 3.9 mmol/L Normal 3.5-5.2 [facility] Comment on above: Performed By: #### C BCWD, BMP, HEPPA, LIPAS, MG, ETOHS, ANION, OSMOL, EGFR1, ABODC, HCGB, TSH3, WKS, CIAT ####[place] [address] Sodium molar conc 140 mmol/L Normal 135-145 [facility] Comment on above: Performed By: #### C BCWD, BMP, HEPPA, LIPAS, MG, ETOHS, ANION, OSMOL, EGFR1, ABODC, HCGB, TSH3, WKS, CIAT ####[place] [address] Urea nitrogen mass conc 7 mg/dL Normal 7-22 [facility] Comment on above: Performed By: #### C BCWD, BMP, HEPPA, LIPAS, MG, ETOHS, ANION, OSMOL, EGFR1, ABODC, HCGB, TSH3, WKS, CIAT ####[place] [address] CALCULATED OSMOLALITYon Osmolality 277.7 mOsmol/kg Normal 275.0-300. [facility] Comment on above: Performed By: #### C BCWD, BMP, HEPPA, LIPAS, MG, ETOHS, ANION, OSMOL, EGFR1, ABODC, HCGB, TSH3, WKS, CIAT ####[place] [address] CBC WITH DIFFERENTIALon ABS IMMATURE GRANS (IG) 0.01 thou/mm3 Normal 0.00-0.07 [facility] Comment on above: Performed By: #### C BCWD, BMP, HEPPA, LIPAS, MG, ETOHS, ANION, OSMOL, EGFR1, ABODC, HCGB, TSH3, WKS, CIAT ####[address] [place] [address] [address] ABS NEUTROPHILS 3.4 thou/mm3 Normal 1.8-7.7 [facility] Comment on above: Performed By: #### C BCWD, BMP, HEPPA, LIPAS, MG, ETOHS, ANION, OSMOL, EGFR1, ABODC, HCGB, TSH3, WKS, CIAT ####[address] [address] Basophils Auto #/vol (Bld) 0.1 thou/mm3 Normal 0.0-0.1 [facility] Comment on above: Performed By: #### C BCWD, BMP, HEPPA, LIPAS, MG, ETOHS, ANION, OSMOL, EGFR1, ABODC, HCGB, TSH3, WKS, CIAT ####[address] [address] Basophils/100 WBC Auto (Bld) 1.5 % Normal [facility] Comment on above: Performed By: #### C BCWD, BMP, HEPPA, LIPAS, MG, ETOHS, ANION, OSMOL, EGFR1, ABODC, HCGB, TSH3, WKS, CIAT ####[address] [address] Eosinophils Auto #/vol (Bld) 0.0 thou/mm3 Normal 0.0-0.4 [facility] Comment on above: Performed By: #### C BCWD, BMP, HEPPA, LIPAS, MG, ETOHS, ANION, OSMOL, EGFR1, ABODC, HCGB, TSH3, WKS, CIAT ####[address] [address] Eosinophils/100 WBC Auto (Bld) 0.9 % Normal [facility] Comment on above: Performed By: #### C BCWD, BMP, HEPPA, LIPAS, MG, ETOHS, ANION, OSMOL, EGFR1, ABODC, HCGB, TSH3, WKS, CIAT ####[address] [place] [address] [address] Erythrocyte distribution width Auto Ratio (RBC) 13.0 % Normal 11.5-14.5 [facility] Comment on above: Performed By: #### C BCWD, BMP, HEPPA, LIPAS, MG, ETOHS, ANION, OSMOL, EGFR1, ABODC, HCGB, TSH3, WKS, CIAT ####[place] [address] Hematocrit Auto Volume Fraction (Bld) 40.6 % Normal 37.0-47.0 [facility] Comment on above: Performed By: #### C BCWD, BMP, HEPPA, LIPAS, MG, ETOHS, ANION, OSMOL, EGFR1, ABODC, HCGB, TSH3, WKS, CIAT ####[place] [address] Hemoglobin mass conc (Bld) 12.9 gm/dl Normal 12.0-16.0 [facility] Comment on above: Performed By: #### C BCWD, BMP, HEPPA, LIPAS, MG, ETOHS, ANION, OSMOL, EGFR1, ABODC, HCGB, TSH3, WKS, CIAT ####[place] [address] IMMATURE GRANS (IG) 0.2 % Normal [facility] Comment on above: Performed By: #### C BCWD, BMP, HEPPA, LIPAS, MG, ETOHS, ANION, OSMOL, EGFR1, ABODC, HCGB, TSH3, WKS, CIAT ####[place] [address] Lymphocytes Auto #/vol (Bld) 1.5 thou/mm3 Normal 1.0-4.8 [facility] Comment on above: Performed By: #### C BCWD, BMP, HEPPA, LIPAS, MG, ETOHS, ANION, OSMOL, EGFR1, ABODC, HCGB, TSH3, WKS, CIAT ####[place] [address] Lymphocytes/100 WBC Auto (Bld) 27.8 % Normal [facility] Comment on above: Performed By: #### C BCWD, BMP, HEPPA, LIPAS, MG, ETOHS, ANION, OSMOL, EGFR1, ABODC, HCGB, TSH3, WKS, CIAT ####[place] [address] MCH Auto Entitic mass (RBC) 28.6 pg Normal 26.0-33.0 [facility] Comment on above: Performed By: #### C BCWD, BMP, HEPPA, LIPAS, MG, ETOHS, ANION, OSMOL, EGFR1, ABODC, HCGB, TSH3, WKS, CIAT ####[place] [address] MCHC Auto mass conc (RBC) 31.8 gm/dl Low 32.2-35.5 [facility] Comment on above: Performed By: #### C BCWD, BMP, HEPPA, LIPAS, MG, ETOHS, ANION, OSMOL, EGFR1, ABODC, HCGB, TSH3, WKS, CIAT ####[place] [address] MCV Auto Entitic volume (RBC) 90.0 fL Normal 81.0-99.0 [facility] Comment on above: Performed By: #### C BCWD, BMP, HEPPA, LIPAS, MG, ETOHS, ANION, OSMOL, EGFR1, ABODC, HCGB, TSH3, WKS, CIAT ####[place] [address] Monocytes Auto #/vol (Bld) 0.4 thou/mm3 Normal 0.4-1.3 [facility] Comment on above: Performed By: #### C BCWD, BMP, HEPPA, LIPAS, MG, ETOHS, ANION, OSMOL, EGFR1, ABODC, HCGB, TSH3, WKS, CIAT ####[place] [address] Monocytes/100 WBC Auto (Bld) 7.2 % Normal [facility] Comment on above: Performed By: #### C BCWD, BMP, HEPPA, LIPAS, MG, ETOHS, ANION, OSMOL, EGFR1, ABODC, HCGB, TSH3, WKS, CIAT ####[place] [address] Neutrophils/100 WBC Auto (Bld) 62.4 % Normal [facility] Comment on above: Performed By: #### C BCWD, BMP, HEPPA, LIPAS, MG, ETOHS, ANION, OSMOL, EGFR1, ABODC, HCGB, TSH3, WKS, CIAT ####[place] [address] Nucleated RBC/100 WBC Ratio (Bld) 0 /100 wbc Normal [facility] Comment on above: Performed By: #### C BCWD, BMP, HEPPA, LIPAS, MG, ETOHS, ANION, OSMOL, EGFR1, ABODC, HCGB, TSH3, WKS, CIAT ####[place] [address] Platelet mean volume Auto Entitic volume (Bld) 9.9 fL Normal 9.4-12.4 [facility] Comment on above: Performed By: #### C BCWD, BMP, HEPPA, LIPAS, MG, ETOHS, ANION, OSMOL, EGFR1, ABODC, HCGB, TSH3, WKS, CIAT ####[place] [address] Platelets Auto #/vol (Bld) 269 thou/mm3 Normal 130-400 [facility] Comment on above: Performed By: #### C BCWD, BMP, HEPPA, LIPAS, MG, ETOHS, ANION, OSMOL, EGFR1, ABODC, HCGB, TSH3, WKS, CIAT ####[place] [address] RBC Auto #/vol (Bld) 4.51 mill/mm3 Normal 4.20-5.40 [facility] Comment on above: Performed By: #### C BCWD, BMP, HEPPA, LIPAS, MG, ETOHS, ANION, OSMOL, EGFR1, ABODC, HCGB, TSH3, WKS, CIAT ####[place] [address] RDW-SD 42.5 fL Normal 35.0-45.0 [facility] Comment on above: Performed By: #### C BCWD, BMP, HEPPA, LIPAS, MG, ETOHS, ANION, OSMOL, EGFR1, ABODC, HCGB, TSH3, WKS, CIAT ####[place] [address] WBC Auto #/vol (Bld) 5.4 thou/mm3 Normal 4.8-10.8 [facility] Comment on above: Performed By: #### C BCWD, BMP, HEPPA, LIPAS, MG, ETOHS, ANION, OSMOL, EGFR1, ABODC, HCGB, TSH3, WKS, CIAT ####[place] [address] DRUG ABUSE SCREENon 07-13-20 18 AMPHETAMINE/METHAMPH Negative Normal NEGATIVE [facility] Comment on above: Performed By: #### C BCWD, BMP, HEPPA, LIPAS, MG, ETOHS, ANION, OSMOL, EGFR1, ABODC, HCGB, TSH3, WKS, CIAT ####[place] [address] BARBITURATE Negative Normal NEGATIVE [facility] Comment on above: Performed By: #### C BCWD, BMP, HEPPA, LIPAS, MG, ETOHS, ANION, OSMOL, EGFR1, ABODC, HCGB, TSH3, WKS, CIAT ####[place] [address] Benzodiazepines Screen Ql (U) Negative Normal NEGATIVE [facility] Comment on above: Performed By: #### C BCWD, BMP, HEPPA, LIPAS, MG, ETOHS, ANION, OSMOL, EGFR1, ABODC, HCGB, TSH3, WKS, CIAT ####[place] [address] Cannabinoids Screen Ql (U) Negative Normal NEGATIVE [facility] Comment on above: Performed By: #### C BCWD, BMP, HEPPA, LIPAS, MG, ETOHS, ANION, OSMOL, EGFR1, ABODC, HCGB, TSH3, WKS, CIAT ####[facility] [address] [place] [address] COCAINE METABOLITE Negative Normal NEGATIVE [facility] Comment on above: Performed By: #### C BCWD, BMP, HEPPA, LIPAS, MG, ETOHS, ANION, OSMOL, EGFR1, ABODC, HCGB, TSH3, WKS, CIAT ####[facility] [address] [place] [address] Opiates Ql (U) Negative Normal NEGATIVE [facility] Comment on above: Performed By: #### C BCWD, BMP, HEPPA, LIPAS, MG, ETOHS, ANION, OSMOL, EGFR1, ABODC, HCGB, TSH3, WKS, CIAT ####[facility] [address] [place] [address] OXYCODONE Negative Normal NEGATIVE [facility] Comment on above: Performed By: #### C BCWD, BMP, HEPPA, LIPAS, MG, ETOHS, ANION, OSMOL, EGFR1, ABODC, HCGB, TSH3, WKS, CIAT ####[facility] [address] [place] [address] Phencyclidine Ql (U) Negative Normal NEGATIVE [facility] Comment on above: Result Comment: A N [...] OSMOL, EGFR1, ABODC, HCGB, TSH3, WKS, CIAT ####[facility] [address] [place] [address] ETHYL ALCOHOL BLOODon 2017 ETHYL ALCOHOL BLOOD < 0.01 Normal 0.00 [facility] Comment on above: Performed By: #### C BCWD, BMP, HEPPA, LIPAS, MG, ETOHS, ANION, OSMOL, EGFR1, ABODC, HCGB, TSH3, WKS, CIAT ####[address] [place] [address] GFR, ESTIMATEDon 07-13-2018 GFR/1.73 sq M.predicted MDRD vol rate/area mL/min/{1.73_m2} Normal [facility] Comment on above: Result Comment: Drake wasserman [...] OSMOL, EGFR1, ABODC, HCGB, TSH3, WKS, CIAT ####[facility] [employer] [place] [address] HCG BETA SUBUNIT QUANTon HCG BETA SUBUNIT QUANT 179.6 mIU/mL High 0.0-5.0 [facility] Comment on above: Result Comment: Gest ational [...] OSMOL, EGFR1, ABODC, HCGB, TSH3, WKS, CIAT ####[address] [address] HEPATIC FUNCTION PANELon Albumin mass conc 4.1 g/dL Normal 3.5-5.1 [facility] Comment on above: Performed By: #### C BCWD, BMP, HEPPA, LIPAS, MG, ETOHS, ANION, OSMOL, EGFR1, ABODC, HCGB, TSH3, WKS, CIAT ####[address] [address] ALP enzyme act/vol 53 U/L Normal 38-126 [facility] Comment on above: Performed By: #### C BCWD, BMP, HEPPA, LIPAS, MG, ETOHS, ANION, OSMOL, EGFR1, ABODC, HCGB, TSH3, WKS, CIAT ####[place] [address] ALT enzyme act/vol 13 U/L Normal 11-66 [facility] Comment on above: Performed By: #### C BCWD, BMP, HEPPA, LIPAS, MG, ETOHS, ANION, OSMOL, EGFR1, ABODC, HCGB, TSH3, WKS, CIAT ####[address] [address] AST enzyme act/vol 18 U/L Normal 5-40 [facility] Comment on above: Performed By: #### C BCWD, BMP, HEPPA, LIPAS, MG, ETOHS, ANION, OSMOL, EGFR1, ABODC, HCGB, TSH3, WKS, CIAT ####[address] [address] Bilirubin mass conc mg/dL Normal 0.0-0.3 [facility] Comment on above: Performed By: #### C BCWD, BMP, HEPPA, LIPAS, MG, ETOHS, ANION, OSMOL, EGFR1, ABODC, HCGB, TSH3, WKS, CIAT ####[address] [address] Bilirubin Ql (U) 0.4 mg/dL Normal 0.3-1.[address] [facility] Comment on above: Performed By: #### C BCWD, BMP, HEPPA, LIPAS, MG, ETOHS, ANION, OSMOL, EGFR1, ABODC, HCGB, TSH3, WKS, CIAT ####[facility] [employer] [address] [place] [address] Protein mass conc 7.0 g/dL Normal 6.1-8.0 [facility] Comment on above: Performed By: #### C BCWD, BMP, HEPPA, LIPAS, MG, ETOHS, ANION, OSMOL, EGFR1, ABODC, HCGB, TSH3, WKS, CIAT ####[place] [address] INDIRECT SARIKA CAPTUREon INDIRECT SARIKA CAPTURE Negative Normal [facility] Comment on above: Performed By: #### C BCWD, BMP, HEPPA, LIPAS, MG, ETOHS, ANION, OSMOL, EGFR1, ABODC, HCGB, TSH3, WKS, CIAT ####[place] [address] LIPASEon 07-13-2018 Lipase enzyme act/vol 21.0 U/L Normal 5.6-51.3 [facility] Comment on above: Performed By: #### C BCWD, BMP, HEPPA, LIPAS, MG, ETOHS, ANION, OSMOL, EGFR1, ABODC, HCGB, TSH3, WKS, CIAT ####[address] [place] [id number] MAGNESIUMon 07-13-2018 Magnesium mass conc 1.9 mg/dL Normal 1.6-2.4 [facility] Comment on above: Performed By: #### C BCWD, BMP, HEPPA, LIPAS, MG, ETOHS, ANION, OSMOL, EGFR1, ABODC, HCGB, TSH3, WKS, CIAT ####[id number] REFLEX CULT URon 07-13-2018 REFLEX CULT UR MICROBIOLOGY REPORT [facility], [address] [place] [address], [id number]: VICKI CAMACHO : ED [phone] : 1990 AGE: 27 SEX: FADM: 07/13/18 Att. Physician: David DECKER Id: [id number] Req. Physician: Seth DECKER: Specimen not receivedSite:Collected: Current Antibiotics:Antibiotics comment: STATUS OF ORDERED AND REPORTED TESTSREFLEX CULT UR PENDINGREFLEX CULT UR - PENDING [facility] Comment on above: Performed By: #### C BCWD, BMP, HEPPA, LIPAS, MG, ETOHS, ANION, OSMOL, EGFR1, ABODC, HCGB, TSH3, WKS, CIAT ####[facility] [employer] [address] [place] [address] RHOGAM VIALon 07-13-2018 RHOGAM VIAL [id number] issued [facility] Comment on above: Performed By: #### C BCWD, BMP, HEPPA, LIPAS, MG, ETOHS, ANION, OSMOL, EGFR1, ABODC, HCGB, TSH3, WKS, CIAT ####[employer] [address] [place] [address] TSH THIRD GENERATIONon 07-13 TSH THIRD GENERATION 3.770 uIU/mL Normal 0.400-4.20 [facility] Comment on above: Performed By: #### C BCWD, BMP, HEPPA, LIPAS, MG, ETOHS, ANION, OSMOL, EGFR1, ABODC, HCGB, TSH3, WKS, CIAT ####[employer] [address] [place] [address] UA WITH MICROSCOPICon 2017 COLOR DARK YELLOW Abnormal STRAW-YELL [facility] Comment on above: Performed By: #### C BCWD, BMP, HEPPA, LIPAS, MG, ETOHS, ANION, OSMOL, EGFR1, ABODC, HCGB, TSH3, WKS, CIAT ####[facility] [employer] [address] [place] [address] BACTERIA NONE Normal FEW/NONE [facility] Comment on above: Performed By: #### C BCWD, BMP, HEPPA, LIPAS, MG, ETOHS, ANION, OSMOL, EGFR1, ABODC, HCGB, TSH3, WKS, CIAT ####[place] [address] CASTS NONE SEEN Normal NONE SEEN [facility] Comment on above: Performed By: #### C BCWD, BMP, HEPPA, LIPAS, MG, ETOHS, ANION, OSMOL, EGFR1, ABODC, HCGB, TSH3, WKS, CIAT ####[place] [address] CASTS 2 NONE SEEN Normal NONE SEEN [facility] Comment on above: Performed By: #### C BCWD, BMP, HEPPA, LIPAS, MG, ETOHS, ANION, OSMOL, EGFR1, ABODC, HCGB, TSH3, WKS, CIAT ####[place] [address] CRYSTALS NONE SEEN Normal NONE SEEN [facility] Comment on above: Performed By: #### C BCWD, BMP, HEPPA, LIPAS, MG, ETOHS, ANION, OSMOL, EGFR1, ABODC, HCGB, TSH3, WKS, CIAT ####[place] [address] EPITHELIAL 0 /hpf Normal 3-5/hpf [facility] Comment on above: Performed By: #### C BCWD, BMP, HEPPA, LIPAS, MG, ETOHS, ANION, OSMOL, EGFR1, ABODC, HCGB, TSH3, WKS, CIAT ####[place] [address] MISCELLANEOUS 2 NONE SEEN Normal [facility] Comment on above: Performed By: #### C BCWD, BMP, HEPPA, LIPAS, MG, ETOHS, ANION, OSMOL, EGFR1, ABODC, HCGB, TSH3, WKS, CIAT ####[place] [address] RBC > 200 Normal 0-2/hpf [facility] Comment on above: Performed By: #### C BCWD, BMP, HEPPA, LIPAS, MG, ETOHS, ANION, OSMOL, EGFR1, ABODC, HCGB, TSH3, WKS, CIAT ####[place] [address] RENAL EPITHELIAL NONE SEEN Normal NONE SEEN [facility] Comment on above: Performed By: #### C BCWD, BMP, HEPPA, LIPAS, MG, ETOHS, ANION, OSMOL, EGFR1, ABODC, HCGB, TSH3, WKS, CIAT ####[place] [address] WBC 2 /hpf Normal 0-4/hpf [facility] Comment on above: Performed By: #### C BCWD, BMP, HEPPA, LIPAS, MG, ETOHS, ANION, OSMOL, EGFR1, ABODC, HCGB, TSH3, WKS, CIAT ####[place] [address] YEAST NONE SEEN Normal NONE SEEN [facility] Comment on above: Performed By: #### C BCWD, BMP, HEPPA, LIPAS, MG, ETOHS, ANION, OSMOL, EGFR1, ABODC, HCGB, TSH3, WKS, CIAT ####[place] [address] BILIRUBIN Negative Normal NEGATIVE [facility] Comment on above: Performed By: #### C BCWD, BMP, HEPPA, LIPAS, MG, ETOHS, ANION, OSMOL, EGFR1, ABODC, HCGB, TSH3, WKS, CIAT ####[place] [address] BLOOD LARGE Abnormal NEGATIVE [facility] Comment on above: Performed By: #### C BCWD, BMP, HEPPA, LIPAS, MG, ETOHS, ANION, OSMOL, EGFR1, ABODC, HCGB, TSH3, WKS, CIAT ####[place] [address] CHARACTER CLOUDY Abnormal CLEAR-SL C [facility] Comment on above: Performed By: #### C BCWD, BMP, HEPPA, LIPAS, MG, ETOHS, ANION, OSMOL, EGFR1, ABODC, HCGB, TSH3, WKS, CIAT ####[place] [address] GLUCOSE Negative Normal NEGATIVE [facility] Comment on above: Performed By: #### C BCWD, BMP, HEPPA, LIPAS, MG, ETOHS, ANION, OSMOL, EGFR1, ABODC, HCGB, TSH3, WKS, CIAT ####[place] [address] KETONES Negative Normal NEGATIVE [facility] Comment on above: Performed By: #### C BCWD, BMP, HEPPA, LIPAS, MG, ETOHS, ANION, OSMOL, EGFR1, ABODC, HCGB, TSH3, WKS, CIAT ####[place] [address] LEUKOCYTES TRACE Abnormal NEGATIVE [facility] Comment on above: Performed By: #### C BCWD, BMP, HEPPA, LIPAS, MG, ETOHS, ANION, OSMOL, EGFR1, ABODC, HCGB, TSH3, WKS, CIAT ####[place] [address] NITRITE Negative Normal NEGATIVE [facility] Comment on above: Performed By: #### C BCWD, BMP, HEPPA, LIPAS, MG, ETOHS, ANION, OSMOL, EGFR1, ABODC, HCGB, TSH3, WKS, CIAT ####[place] [address] PH 6.5 Normal 5.0 - 9.0 [facility] Comment on above: Performed By: #### C BCWD, BMP, HEPPA, LIPAS, MG, ETOHS, ANION, OSMOL, EGFR1, ABODC, HCGB, TSH3, WKS, CIAT ####[place] [address] PROTEIN TRACE Abnormal NEGATIVE [facility] Comment on above: Performed By: #### C BCWD, BMP, HEPPA, LIPAS, MG, ETOHS, ANION, OSMOL, EGFR1, ABODC, HCGB, TSH3, WKS, CIAT ####[facility] [address] [place] [address] SPECIFIC GRAVITY 1.018 Normal 1.002-1.[address] [facility] Comment on above: Performed By: #### C BCWD, BMP, HEPPA, LIPAS, MG, ETOHS, ANION, OSMOL, EGFR1, ABODC, HCGB, TSH3, WKS, CIAT ####[facility] [address] [place] [address] UROBILINOGEN 0.2 eu/dl Normal 0.0 - 1.0 [facility] Comment on above: Performed By: #### C BCWD, BMP, HEPPA, LIPAS, MG, ETOHS, ANION, OSMOL, EGFR1, ABODC, HCGB, TSH3, WKS, CIAT ####[facility] [address] [place] [address] US OB TRANSVAGINALon 018 US OB TRANSVAGINAL [...] weeks 6 days . . . KATERINE 2019Gestational Age (LMP) -5 weeks 6 days . [...] and an estimated delivery of a 5 2019. There is no pole identified. The location [...] days and an estimated delivery of a 2018. There is no pole identified. The [...] Dr. Gael Martinez on 07/13/2018 1:31 PMInterpreted by:CANDE Linkigned by:Gael Martinez MD07/13/18inal result Normal [facility] WEEKS GESTATIONon 07-13-2018 WEEKS GESTATION 5 weeks Normal [facility] Comment on above: Performed By: #### C BCWD, BMP, HEPPA, LIPAS, MG, ETOHS, ANION, OSMOL, EGFR1, ABODC, HCGB, TSH3, WKS, CIAT ####[employer] [id number] [place] [address] Vital Signs Date Time Vital Sign Value Performing Clinician Facility 07-02-2024 15:43-0500 Body mass index (BMI) [Ratio] 40.46 kg/m2 Shirlene Samayoa DO Work Phone: [facility] 07-02-2024 15:43-0500 Body weight 124.29 kg Shirlene Samayoa DO Work Phone: [facility] 07-02-2024 15:43-0500 Diastolic blood pressure 82 mm[Hg] Shirlene Rinkes DO Work Phone: [facility] 07-02-2024 15:43-0500 Systolic blood pressure 120 mm[Hg] Shirlene Rinkes DO Work Phone: [facility] 04-30-2023 13:00-0400 Respiratory rate 16 /min [employer]ATOR[facility]C Winter Laina Work Phone: [facility] 04-30-2023 08:45-0400 Body temperature 98.2 [degF] [employer] C[employer]IVATOR-C Winter Laina Work Phone: [facility] 04-30-2023 08:45-0400 Diastolic blood pressure 76 mm[Hg] [facility] CULTIVATOR-C Winter Laina Work Phone: [facility] 04-30-2023 08:45-0400 Heart rate 79 /min [employer] C[employer]IVATOR-C Winter Laina Work Phone: [facility] 04-30-2023 08:45-0400 SaO2% (BldA) [Mass fraction] 99 % [employer] CULTIVATOR-C Winter Laina Work Phone: [facility] 04-30-2023 08:45-0400 Systolic blood pressure 116 mm[Hg] [employer] CULTIVATOR-C Winter Laina Work Phone: [facility] 04-27-2023 21:08-0400 Body height 175.26 cm [employer] CULTIVATOR-C Winter Laina Work Phone: [facility] 04-27-2023 21:08-0400 Body weight 127 kg [employer] CULTIVATOR-C Winter Laina Work Phone: [facility] 02-15-2023 10:54-0400 Body height 175.26 cm [employer] CULTIVATOR-C Winter Laina Work Phone: [facility] 02-15-2023 10:54-0400 Body temperature 98.1 [degF] [employer] CULTIVATOR-C Winter Laina Work Phone: [facility] 02-15-2023 10:54-0400 Body weight 116.15 kg [employer] C[employer]IVATOR-C Winter Laina Work Phone: [facility] 02-15-2023 10:54-0400 Diastolic blood pressure 81 mm[Hg] OYSTER CULTIVATOR-C Winter Marina Work Phone: [facility] 02-15-2023 10:54-0400 Heart rate 98 /min OYSTER CULTIVATOR-C Winter Marina Work Phone: [facility] 02-15-2023 10:54-0400 Respiratory rate 20 /min OYSTER CULTIVATOR-C Winter Marina Work Phone: [facility] 02-15-2023 10:54-0400 SaO2% (BldA) [Mass fraction] 100 % OYSTER CULTIVATOR-C Winter Marina Work Phone: [facility] 02-15-2023 10:54-0400 Systolic blood pressure 132 mm[Hg] OYSTER CULTIVATOR-C Winter Marina Work Phone: [facility] 02-01-2023 15:30-0400 Diastolic blood pressure 79 mm[Hg] OYSTER CULTIVATOR-C Winter Marina Work Phone: [facility] 02-01-2023 15:30-0400 Heart rate 90 /min OYSTER CULTIVATOR-C Winter Marina Work Phone: [facility] 02-01-2023 15:30-0400 Systolic blood pressure 123 mm[Hg] OYSTER CULTIVATOR-C Winter Marina Work Phone: [facility] Encounters Encounter Date Encounter Type Care Provider Facility Start: 07-02-2024 End: 07-02-2024 Patient encounter status Shirlene Samayoa DO Work Phone: [facility] Start: 07-02-2024 End: 07-02-2024 Periodic preventive med est patient 18-39 yrs Shirlene Samayoa DO Work Phone: [facility] Comment on above: Encounter for gyneco logical examination without abnormal finding; Screening for malignant neoplasm of cervix Start: 07-02-2024 End: 07-02-2024 ambulatory SHIRLENE SAMAYOA Not Available Start: 07-02-2024 End: 07-02-2024 Bamboo flowsheet Shirlene E Rinkes DO Work Phone: [facility] Start: 07-02-2024 End: 07-02-2024 Bamboo flowsheet Shirlene E Rinkes DO Work Phone: [facility] Start: 05-09-2023 End: 05-09-[facility] Start: 05-09-2023 End: 05-09-2023 ambulatory OYSTER CULTIVATOR-C Winter Aurora Laina Work Phone: [facility] Work Phone: Start: 05-09-2023 End: 05-09-2023 Patient encounter procedure OYSTER CULTIVATOR-C Winter Laina Work Phone: [facility]- Visit Work Phone: Start: 05-03-2023 End: 05-03-2023 [facility] Start: 05-03-2023 End: 05-03-2023 ambulatory OYSTER CULTIVATOR-C Winter Aurora Laina Work Phone: [facility] Work Phone: Start: 05-03-2023 End: 05-03-2023 Patient encounter procedure OYSTER CULTIVATOR-C Winter Laina Work Phone: [facility]- Visit Work Phone: Start: 05-01-2023 End: 05-01-2023 ambulatory [facility] Facility:[facility] Start: 05-01-2023 End: 05-01-2023 ambulatory OYSTER CULTIVATOR-C Winter Aurora Laina Work Phone: [facility] Work Phone: Start: 05-01-2023 End: 05-01-2023 Patient encounter procedure OYSTER CULTIVATOR-C Winter Laina Work Phone: [facility]- Visit Work Phone: Start: 04-27-2023 End: 04-30-2023 Evaluation and management of inpatient Rodger Jacobsen Facility:[facility] Start: 04-27-2023 End: 04-30-2023 Evaluation and management of inpatient OYSTER CULTIVATOR-C Winter Marina Work Phone: [facility] Work Phone: Start: 03-28-2023 End: 03-28-2023 ambulatory PHYSICIAN NO FAMILY Facility:[facility] Start: 03-28-2023 End: 03-28-2023 ambulatory OYSTER CULTIVATOR-C Winter Marina Work Phone: [facility] Work Phone: Start: 03-28-2023 End: 03-28-2023 Departed Referred OYSTER CULTIVATOR-C Winter Marina Work Phone: [facility] [place] Work Phone: Start: 02-15-2023 End: 02-15-2023 Emergency department patient visit Winter Marina Facility:[facility] Start: 02-15-2023 End: 02-15-2023 Emergency department patient visit OYSTER CULTIVATOR-C Winter Marina Work Phone: [facility]-Emergency Room Work Phone: Start: 02-01-2023 End: 02-01-2023 ambulatory Shirlene Samayoa Facility:[facility] Start: 02-01-2023 Encounter for blood typing Shirlene Samayoa [facility] Start: 02-01-2023 End: 02-01-2023 ambulatory OYSTER CULTIVATOR-C Winter Marina Work Phone: [facility] Work Phone: Start: 02-01-2023 End: 02-01-2023 Discharged Recurring OYSTER CULTIVATOR-C Winter Marina Work Phone: [facility]-Infusion Therapy - O/P Work Phone: Start: 01-31-2023 End: 01-31-2023 ambulatory OYSTER CULTIVATOR-C Winter Marina Work Phone: [facility] Work Phone: Start: 01-31-2023 End: 01-31-2023 Patient encounter procedure OYSTER CULTIVATOR-C Winter Marina Work Phone: [facility] [place] Work Phone: Start: 07-18-2022 End: 07-19-2022 ambulatory WINTER LAINA Facility:[facility] Start: 03-29-2022 End: 03-30-2022 ambulatory WINTERMICKIE MARINA Facility:[facility] Start: 07-24-2018 End: 07-25-2018 Patient encounter procedure DAYANA MIDDLETON [facility] Start: 07-15-2018 End: 07-16-2018 Patient encounter procedure NEELIMA DECKER [facility] Start: 07-13-2018 End: 07-13-2018 Emergency department patient visit Physician No Family [facility] Procedures Date Procedure Procedure Detail Performing Clinician Start: 06-05-2023 Microscopic observat ion [Identifier] in Cervix by Cyto stain Shirlene Samayoa DO Work Phone: Start: 04-28-2023 Antibody screen Winter Laina Comment on above: Order Comment: Pleas e draw per Lori in BB. MLG Result Comment: PERF ORMED BY: [facility] [address] [place] [address] PATHOLOGIST DEPUTY OF COUNTER INTELLIGENCE LIZBET العلي M.D. Start: 04-27-2023 Urine culture OYSTER CULTIVATOR-C Farnaz Britton Work Phone: Start: 03-28-2023 Streptococcus agalac tiae culture OYSTER CULTIVATOR-C Winter Laina Work Phone: Start: 01-31-2023 Antibody screen Winter [...] Treatment Date Care Activity Detail Author Start: 06-05-2028 Screening for malign ant neoplasm of cervix [facility] Start: 06-05-2026 Screening for malign ant neoplasm of cervix Pap Smear [facility] Start: 07-02-2024 End: 07-02-2024 Patient encounter procedure 07/02/2024 3:45 PM EST Office Visit [facility] [address] [facility] [address] [place] [address] Shirlene Samayoa DO [address] [place] [address] Encounter for gynecological examination without abnormal finding; Screening for malignant neoplasm of cervix [facility] Comment on above: Encounter for gyneco logical examination without abnormal finding; Screening for malignant neoplasm of cervix Start: 04-12-2024 Influenza vaccination Influenza Vacc ine (#1) [facility] Start: 04-30-2023 [facility] Start: 04-28-2023 Hospital admission [facility] Start: 04-27-2023 Hospital admission [facility] Start: 04-27-2023 Delivery of Products of Conception, External Approach Delivery of Products of Conception, External Approach [facility] Start: 04-27-2023 Division of Female Perineum, External Approach Division of Female Perineum, External Approach [facility] Start: 04-27-2023 Introduction of Othe r Hormone into Peripheral Vein, Percutaneous Approach Introduction of Other Hormone into Peripheral Vein, Percutaneous Approach [facility] Start: 03-28-2023 Group B Streptococcu s Culture Group B Streptococcus Culture [facility] Patient Education [facility] Work Phone: Patient referral [facility] Work Phone: SENDOUT TEST MISCELLANEOUS [facility] SENDOUT TEST MISCELLANEOUS [facility] Lab Routine Screening for malignant neoplasm of cervix Ordered: 07/02/2024 [facility] Work Phone: Comment on above: Ordered: 07/02/2024 Streptococcus agalac tiae [Presence] in Unspecified specimen by Organism specific culture [facility] Immunizations Immunization Date Immunization Notes Care Provider Fa ramila 04-29-2023 tetanus toxoid, redu lynda diphtheria toxoid, and acellular pertussis vaccine, adsorbed OYSTER CULTIVATOR-C Winter Marina Work Phone: [facility] Payers Date Payer Category Payer Private Health Insurance [employer] [id number] 2014 Private Health Insurance [id number] 1990 Unknown [id number] 1990 Unknown [id number] 1990 Unknown [id number] 93 1990 Unknown [id number]. 593 1990 Unknown [id number] 1259 1959 Self-pay 1959 Unknown [id number] Unknown [id number] 593 Unknown [id number] 531 Unknown [id number] [id number]. 531 Unknown [id number] [id number]. 531 Unknown [id number]. 531 Unknown [id number]. 531 Unknown [id number]. 531 Unknown [id number]. 531 Social History Date Type Detail Facility Tobacco smoking stat us [facility] Unknown if ever smoked [facility] Work Phone: Start: 1990 Sex Assigned At Female [facility] Start: 02-15-2023 End: 02-20-2023 Tobacco smoking status NYIS Never smoked tobacco (finding) [facility] Start: 06-30-2024 End: 07-02-2024 Alcoholic beverage intake Lifetime non-drinker (finding) [facility] Start: 06-30-2024 History of Social function [facility] Start: 06-30-2024 Tobacco use panel [facility] Start: 07-12-2023 Alcohol Comment Caffeine intake: soda/pop occasionally [facility] Start: 01-14-2023 Gender identity Identifies as female gender (finding) [facility] Start: 01-16-2023 Sexual orientation Heterosexual (finding) [facility] Goals Date Patient Goal Desired Activity /State Personal health goal Functional Status Date Assessment Result Facility 04-30-2023 Functional status Patient at Baseline [facility] Work Phone: Mental Status Date Assessment Result Facility 04-30-2023 Cognitive function Cognitive Sta tus Patient at Baseline [facility] Work Phone: History of Present illness Narrative 07-02-2024 Shirlene Samayoa DO - 07/02/2024 3:45 PM EST Note Date & Type Note Facility 07-02-2024 History of Presen t illness Narrative Images from the original note were not included. Shirlene Samayoa D.O. Obstetrics and Gynecology Patient: Vicki Williamson : 1990 (33 y.o.) Yearly Wellness Exam Date: 07/02/2024 Reason for Visit - Chief Complaint Patient presents with Gynecologic Exam Denies concerns, denies bowel/bladder/breast concerns. LMP 06/23/24 Menses regular . Visit Vitals BP 120/82 Wt 274 lb LMP 06/23/2024 BMI 40.46 kg/m OB Status Unknown Smoking Status Never BSA 2.46 m No Known Allergies History of Present Illness, Associated Treatments and Results - OB History Para Term AB Living 1 1 1 0 0 1 SAB IAB Ectopic Multiple Live Births 0 0 0 0 1 # Outcome Date GA Lbr Alphonso/2nd Weight Sex Type Anes PTL Lv 1 Term 04/28/23 40w3d 8 lb 12 oz M Vag-Spont EPI Name: Ranjith Obstetric Comments Pap smear 06/05/23 wnl Review of Systems - General: Chills denies. Allergy/Immunology: Rash Denies. ENT: Denies Difficulty swallowing. Endocrine: Denies Cold intolerance denies. Heat intolerance denied. Respiratory: Denies Chest pain denies. Shortness of breath denies. Breast: Denies Bloody nipple discharge denies. Breast lump denies. Cardiovascular: Denies Chest pain. Gastrointestinal: Abdominal pain denies. Blood in stool denies. Hematology: Easy bruising denies. Prolonged bleeding denies. Women Only: Breast lump denies. Vaginal bleeding between periods is denied. Vaginal discharge/itching denied. Genitourinary: Blood in urine denies. Painful urination denies. Incontinence denies. Skin: Hair changes. Neurologic: Seizures denied. Stroke denies. Psychiatric: Anxiety denies. Depressed mood denies. Medication Documentation Review Audit Reviewed by Priyanka Drake MA (Developer Analyst) on 07/02/24 at 1542 Medication Order Taking? Sig Documenting Provider Last Dose Status levothyroxine (Synthroid, Levoxyl) 100 MCG tablet [id number] Yes Take 100 mcg by mouth Daily Shirlene Samayoa DO Active Discontinued 07/02/24 1542 Discontinued 07/02/24 1542 Past Medical History: Diagnosis Date Hypothyroidism (CMS/HCC) Varicella zoster Past Surgical History: Procedure Laterality Date VAGINAL DELIVERY 04/28/2023 Family History Problem Relation Name Age of Onset Arthritis Mother Heart attack Brother Stroke Brother Diabetes Paternal Grandmother Cancer Father's Sister Endometriosis Father's Sister Physical Exam - General appearance, mentation, extraocular movements, facial strength and movement, hearing, upper and lower extremity strength and tone, sensation to gross testing, coordination, and gait are normal or at baseline unless noted below. General Examination: GENERAL APPEARANCE: alert oriented well developed, well nourished. HEAD: normocephalic atraumatic. EYES: sclera anicteric. EARS: no obvious hearing deficit. SKIN: warm and dry. HEART: regular rate and rhythm. LUNGS: clear to auscultation bilaterally. CHEST: axillary nodes grossly normal. BREASTS: no masses palpable bilaterally, normal nipples bilaterally. ABDOMEN: soft, nontender, nondistended, no masses palpable. BACK: no costovertebral angle tenderness, no obvious scoliosis/kyphosis. FEMALE GENITOURINARY: normal vaginal mucosa, cervix absent of lesions, nontender, uterus AV, mobile, ovaries nonpalpable and nontender. EXTREMITIES: no edema. NEUROLOGIC: alert and oriented. PSYCH: cooperative with exam. Diagnoses and all orders for this visit: Encounter for gynecological examination without abnormal finding Screening for malignant neoplasm of cervix - SENDOUT TEST MISCELLANEOUS [facility] Pap, pelvic and breast exam completed. Findings of today's exam discussed with the patient. Continue MSBE. Ca/Vit D recommendations reviewed with the patient. The patient is to contact the office with any changes to her gynecological condition. The patient is to return in 1 year or as needed ICD-10-CM 1. Encounter for gynecological examination without abnormal finding Z01.419 2. 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 Laramie is doing well. 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 Patient: Vicki Williamson MR#: [id number] : 1990 Acct:[id number] Age/Sex: 32 / F Adm Date: 3 Loc: Room: [address] [place] [address] Type: ADM IN Attending Dr: Rodger Jacobsen [...] complaints, pain well controlled and tolerating diet Laramie baby status: doing well and nursing well [...] % (Auto) 66.3, Lymph % (Auto) 24.0, Hardy % (Auto) 7.2, Eos % (Auto) 1.8, Baso % (Auto) 0.7, Nucleat RBC Rel Count 0.2, Neut # (Auto) 6.0, Lymph # (Auto) 2.2, Hardy # (Auto) 0.7, Eos # (Auto) 0.2, [...] 25 Signed By: <Electronically signed by Shirlene Samayoa DO> 04/29/23 1031 [facility] Work Phone: Procedure note 04-28-2023 Note Date & Type Note Facility 04-28-2023 Procedure note [facility] Evaluation note Note Date & Type Note Facility Evaluation note No assessment information availa ble [facility] Work Phone: Evaluation note Note Date & Type Note Facility Evaluation note Diagnosis Onset Date Anemia in acute anemia acute UTI acute Status post vaginal delivery acute [facility] Work Phone: Evaluation note Note Date & Type Note Facility Evaluation note Diagnosis Encounter for gynecological examination without abnormal finding Screening for malignant neoplasm of cervix Screening for malignant neoplasm of the cervix documented in this encounter [facility] Discharge instructions Note Date & Type Note Facility Hospital Discharge instructions Additional Instructions Apply warm moist compresses to the area 3 times a day. [facility] Work Phone: Summary Purpose Family History No [...] section and content) DATE CREATED AUTHOR 07/27/2018 [facility] DATE CREATED AUTHOR AUTHOR'S ORGANIZ ATION 07/21/2022 [facility] DATE CREATED AUTHOR AUTHOR'S ORGANIZ ATION 05/27/2023 [facility] DATE CREATED AUTHOR AUTHOR'S ORGANIZ ATION 07/05/2024 [facility] dical Specialists EPIC Care Teams (unrecognized sec tion and content) Team Status: Active Member Role Status Dates Winter Marina , OYSTER CULTIVATOR-C Primary Care Provider Active Team Status: Inactive Member Role Status Dates Winter Marina , OYSTER CULTIVATOR-C Primary Care Provider Active Shirlene Samayoa , Attending Provider Active Team Status: Inactive Member Role Status Dates Winter Marina , OYSTER CULTIVATOR-C Primary Care Provider Active Francis Hickman APRN Emergency Provider Active Team Status: Inactive Member Role Status Dates Shirlene Samayoa , Attending Provider Active Team Status: Inactive Member Role Status Dates Shirlene Samayoa , Attending Provider Active PHYSICIAN NO FAMILY Primary Care Provider Active Team Status: Inactive Member Role Status Dates Winter Marina , OYSTER CULTIVATOR-C Primary Care Provider Active Rodger Jacobsen MD Admit Provider, Attending Provider A ctive Team Status: Inactive Member Role Status Dates Winter Marina , OYSTER CULTIVATOR-C Primary Care Provider Active Asha Bowman MD Attending Provider Active [employer]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 Relationship Specialty Start Date End Date Unallocated, Koko Chappell MD [facility] [place] [address] PCP - General 01/15/23 Shirlene Samayoa DO [address] [place] [address] Referring Physician Obstetrics and Gynecology 05/08/23 [employer] Relationship Specialty Start Date End Date Unallocated, Koko Chappell MD [address] [place] [address] PCP - General 01/15/23 Shirlene Samayoa DO [address] [place] [address] Referring Physician Obstetrics and Gynecology 05/08/23 Goals (unrecognized section and content) Goals may be documented in a n alternate sectionGoals may be documented in an alternate sectionGoals may be documented in an alternate sectionGoals may be documented in an alternate section Reason for Visit (unrecogniz ed section and content) Reason Comments Gynecologic Exam Denies concerns, den ies bowel/bladder/breast concerns. LMP 06/23/24 Menses regular . FOR RECORDS PERTAINING TO PATIENTS WHO ARE [...] BE BASED ON THE PRIMARY CLINICAL RECORDS. [facility]. provides no warranty or guarantee of the accuracy or completeness of information in this document.
--- NOTE | 2025-04-07 08:44 | PC.NURSE ---
Nursing Note Cardiac Stress Test Reviewed: Medication, allergies and patient history reviewed. Stress Test: [x ] Patient tolerated stress test well. [ ] Patient unable to tolerate walking on treadmill. Switched to Lexiscan stress test. [x ] No chest pain noted per patient [ ] Chest pain that resolved prior to leaving stress lab. [ ] No dyspnea noted. [ x] Dyspnea that resolved prior to leaving stress lab. [x ] Patient left stress lab asymptomatic and hemodynamically stable. [ ] Patient taken to the Emergency Room due to non-resolving symptoms following stress test. [x ] Patient achieved target heart rate. [ ] Patient unable to achieve target heart rate. [ ] Aminophylline administered as reversal agent to Lexiscan (Regadenoson). [ ] Nitro administered. Nursing Comments:Pt had regular TM test done. Tolerated well. Pt had no CP and minimal SOB that resolved within 3 minutes of rest. Pt ambulated out of stress lab with no symptoms.
--- NOTE | 2025-04-07 12:30 | PM.STRESS ---
Stress Test Stress Test Requesting physician: DANIELLA MARINA Procedure: Treadmill exercise stress test General Information: Reason for Stress Test: [Chest pain] Cardiac History and Risk Factors: [] Resting 12 - Lead Electrocardiogram: Sinus rhythm Poor R wave progression, cannot rule out septal infarct age undetermined Abnormal ECG Stress Test: Protocol: [Protocol; the patient exercised for 6 minutes and 3 seconds achieving 7 METS and reaching stage III of the Oc protocol. The test was terminated due to achievement of target heart rate and fatigue. Patient heart rate response was 87% of maximum predicted heart rate] Exercise Capacity: [Fair] Blood Pressure Response: [Resting blood pressure was 123/82 with a peak blood pressure of 138/86] Rhythm: [Sinus rhythm, no arrhythmias] ST - Response: [No significant ST-T wave changes] Patient Response: [No chest pain] Interpretation: 1. No ischemic EKG changes on routine exercise treadmill stress test. 2. Appropriate heart rate and blood pressure response to exercise. 3. Dudley treadmill score is +6. Estimated 1 year mortality: 0.5 to 0.6%. Risk category: Low risk. Angiography: Usually not indicated.
== END 2025-04-07 07:54 | disposition home or self-care (01) ==
LOC: CARD 07:53
PROVIDERS: PCP Nurse Practitioner Family; Visit Provider Nurse Practitioner Family
DX: R07.9 Chest pain, unspecified (principal)
CPT/HCPCS: 93017